=== PATIENT | male | born 1935 | race Caucasian/White ===

== ENCOUNTER 2017-05-28 15:32 | Emergency (ER) | payer MEDICARE, BC ==
[~2017-05-28] VITALS: Ht 170.2 cm; Wt 80.0 kg
[2017-05-28 15:33] VITALS: Ht 170.2 cm; Wt 80.0 kg
[2017-05-28 16:21] LABS: BASOPHILS % 0.5 % (0.0-2.0); EOSINOPHILS # 0.1 10^3/ul (0.0-0.5); HEMATOCRIT 33.3 % (42.0-52.0); HEMOGLOBIN 10.9 g/dl (14.0-18.0); LYMPHOCYTES # 0.7 10^3/ul (0.8-2.9); LYMPHOCYTES % 9.3 % (15.0-51.0); MEAN CORPUSCULAR HGB CONC 32.7 g/dl (32.0-37.0); MEAN CORPUSCULAR VOLUME 85.6 fl (82.0-101.0); MEAN PLATELET VOLUME 11.2 fl (7.4-10.4); MONOCYTE # 0.8 10^3/ul (0.3-0.9); MONOCYTES % 10.7 % (0.0-11.0); PLATELET COUNT 181 10^3/UL (140-415); RED BLOOD COUNT 3.89 10^6/ul (4.70-6.10); RED CELL DISTRIBUTION WIDTH 13.9 % (11.5-14.5); WHITE BLOOD COUNT 7.7 10^3/ul (4.8-10.8)
[2017-05-28 16:42] LABS: ALBUMIN/GLOBULIN RATIO 1.02; BILIRUBIN,INDIRECT 0.3 mg/dl (0-1.1); BILIRUBIN,TOTAL 0.3 mg/dl (0.2-1.3); CALCIUM 9.8 mg/dl (8.4-10.2); CREATININE 2.85 mg/dl (0.61-1.24); POTASSIUM 5.5 mmol/L (3.5-5.1); TOTAL PROTEIN 7.9 g/dl (6.1-8.1)
--- NOTE | 2017-05-28 16:44 | RADRPT ---
PROCEDURE: CT Brain without contrast. CLINICAL INDICATION: Weakness in the legs TECHNIQUE: A CT of the brain was performed on a [employer] 64-slice CT scanner utilizing axial imaging from the skull base through the vertex without IV contrast. Multiplanar reformatted images were made. Images were reviewed on a PACS workstation. The CTDIvol is 45.0 mGy and the DLP is 810 mGycm. DICOM images are available. One or more of the following dose reduction techniques were utilized: 1.) Automated exposure control 2.) Adjustment of the mA +/- kV according to patient's size 3.) Use of iterative reconstruction technique. COMPARISON: None FINDINGS: There is no intracranial hemorrhage, mass effect, or midline shift. No extra-axial fluid collection is seen. There is cerebral volume loss with prominence of the cerebral sulci and lateral ventricles . Periventricular and subcortical white matter hypodensities are nonspecific but likely reflect expedition[employer] fighting [employer] keeley microvascular ischemic change. The visualized paranasal sinuses and osseous structures are ayla sly unremarkable. IMPRESSION: 1. No evidence of acute intracranial pathology. If there is concern for acute intracranial ischemia , consider MRI for further evaluation. 2. Diffuse cerebral volume loss. 3. Periventricular and subcortical white matter hypodensities are nonspecific but likely reflect ch ronic microvascular ischemic change. Physician Jaguar Date Time Electronically viewed and signed by Physician Jaguar on 05/28/2017 16:44 ML/
[2017-05-28] MEDS ORDERED: SOD CHLORIDE 0.9% 1,000 ML IV STA (17:18)
[2017-05-28] MEDS ORDERED: NA POLYST SULFON 15 GM/60 ML BTL PO ONE (17:30)
[2017-05-28 18:51] VITALS: BP 139/70; PULSE 71; RESP 16; TEMP 98.1
[2017-05-28] MEDS ORDERED: SODI15OR8 PO (18:58)
--- NOTE | 2017-05-28 19:07 | ERD ---
ER Documentation Chief Complaint Chief Complaint BIB RA FOR RT KNEE PAIN S/P FALL. HPI This is a 81-year-old male who was brought in for generalized weakness. The patient says that he walks with a cane at baseline and has difficult time getting around at baseline. He said that he sat in a low seat chair and that he could not get out of the chair because his legs feel weak. He says his legs are always weak but had a difficult time getting out of the chair. Apparently this occurred out in the public and a bystander called EMS to try to help him. Patient denies any numbness weakness no focal neurological complaints of headache no chest pain shortness of breath no recent illness or dysuria ROS All systems reviewed and are negative except as per history of present illness. Medications Home Meds Active Scripts Sodium Polystyrene Sulfonate* (Kayexalate*) 15 Gm/60 Ml Susp, 30 GM PO each day for 2 Days, ML Prov:TC ZAMORA DO 05/28/17 Allergies Allergies: Coded Allergies: No Known Allergy (Unverified , 05/28/17) PMhx/Soc Hx Alcohol Use: No Hx Substance Use: No Hx Tobacco Use: No Smoking Status: Never smoker FmHx Family History: No coronary disease Physical Exam Vitals Vital Signs Date Time Temp Pulse Resp B/P Pulse Ox O2 Delivery O2 Flow Rate FiO2 05/28/17 18:51 98.1 71 16 139/70 95 Room Air 05/28/17 15:33 98.0 75 16 103/55 94 Physical Exam Const: Well-developed, well-nourished Head: Atraumatic, normocephalic Eyes: Normal Conjunctiva, PERRLA, EOMI, normal sclera, no nystagmus ENT: Normal External Ears, Nose and Mouth, moist mucus membranes. Neck: Full range of motion. No meningismus, no lymphadenopathy. Resp: Clear to auscultation bilaterally, no wheezing, rhonchi, rales Cardio: Regular rate and rhythm, no murmurs, S1 S2 present Abd: Soft, non tender x 4, non distended. Normal bowel sounds, no guarding or rebound, no pulsitile abdominal masses or bruits Skin: No petechiae or rashes, no ecchymosis , no maculopapular rash Back: No midline or flank tenderness Ext: No cyanosis, or edema, FROM x 4, normal inspection, neurovascularly intact x 4, patient can ambulate with a cane at his baseline slow gait Neur: Awake and alert, STR 5/5 x 4, sensation intact x 4, no focal findings, cerebellum intact Psych: Normal Mood and Affect Result Diagram: 05/28/17 1605 05/28/17 1605 Results 24 hrs Laboratory Tests Test 05/28/17 16:05 White Blood Count 7.710^3/ul Red Blood Count 3.8910^6/ul Hemoglobin 10.9g/dl Hematocrit 33.3% Mean Corpuscular Volume 85.6fl Mean Corpuscular Hemoglobin 28.0pg Mean Corpuscular Hemoglobin Concent 32.7g/dl Red Cell Distribution Width 13.9% Platelet Count 87036^3/UL Mean Platelet Volume 11.2fl Neutrophils % 78.0% Lymphocytes % 9.3% Monocytes % 10.7% Eosinophils % 1.0% Basophils % 0.5% Nucleated Red Blood Cells % 0.0/100WBC Neutrophils # 6.010^3/ul Lymphocytes # 0.710^3/ul Monocytes # 0.810^3/ul Eosinophils # 0.110^3/ul Basophils # 0.010^3/ul Nucleated Red Blood Cells # 0.010^3/ul Sodium Level 139mmol/L Potassium Level 5.5mmol/L Chloride Level 101mmol/L Carbon Dioxide Level 25mmol/L Anion Gap 19 Blood Urea Nitrogen 58mg/dl Creatinine 2.85mg/dl Glucose Level 126mg/dl Calcium Level 9.8mg/dl Total Bilirubin 0.3mg/dl Direct Bilirubin 0.00mg/dl Indirect Bilirubin 0.3mg/dl Aspartate Amino Transf (AST/SGOT) 26IU/L Alanine Aminotransferase (ALT/SGPT) 44IU/L Alkaline Phosphatase 81IU/L Total Protein 7.9g/dl Albumin 4.0g/dl Globulin 3.90g/dl Albumin/Globulin Ratio 1.02 Current Medications Medications (Trade) Dose Ordered Sig/Christina Route PRN Reason Start Time Stop Time Status Last Admin Dose Admin Sodium Chloride (NS) 1,000 ml @ 1,000 mls/hr Q1H STAT IV 05/28/17 17:18 05/28/17 18:17 DC 05/28/17 17:44 Sodium Polystyrene Sulfonate (Kayexalate) 30 gm ONCE ONCE PO 05/28/17 17:30 05/28/17 17:31 DC 05/28/17 17:44 Procedures/MDM PROCEDURE: CT Brain without contrast. CLINICAL INDICATION: Weakness in the legs TECHNIQUE: A CT of the brain was performed on a [employer] 64-slice CT scanner utilizing axial imaging from the skull base through the vertex without IV contrast. Multiplanar reformatted images were made. Images were reviewed on a PACS workstation. The CTDIvol is 45.0 mGy and the DLP is 810 mGycm. DICOM images are available. One or more of the following dose reduction techniques were utilized: 1.) Automated exposure control 2.) Adjustment of the mA +/- kV according to patient's size 3.) Use of iterative reconstruction technique. COMPARISON: None FINDINGS: There is no intracranial hemorrhage, mass effect, or midline shift. No extra- axial fluid collection is seen. There is cerebral volume loss with prominence of the cerebral sulci and lateral ventricles. Periventricular and subcortical white matter hypodensities are nonspecific but likely reflect chronic microvascular ischemic change. The visualized paranasal sinuses and osseous structures are grossly unremarkable. IMPRESSION: 1. No evidence of acute intracranial pathology. If there is concern for acute intracranial ischemia, consider MRI for further evaluation. 2. Diffuse cerebral volume loss. 3. Periventricular and subcortical white matter hypodensities are nonspecific but likely reflect chronic microvascular ischemic change. Physician Jaguar Date Time Electronically viewed and signed by Physician Jaguar on 05/28/2017 16 :44 ML/ CC: TC ZAMORA DO The patient's creatinine is 2.83. The family is here now state that his creatinine a few weeks ago was 2.45. He has seen a plate inspector and he has a follow-up appointment with his doctor this Monday. The patient's potassium is elevated at 5.5 gave him some Kayexalate will discharge him home with 2 more days of Kayexalate. Because his creatinine is at baseline nearly I will discharge home after 1 L of fluids. Departure Diagnosis: Primary Impression: Volume depletion Additional Impression: General weakness Condition: Stable Patient Instructions: Generalized Weakness TC ZAMORA DO May 28, 2017 19:07
[2017-05-28] MEDS ORDERED: WALK1EAC23 MC (19:08)
== END 2017-05-28 19:15 | disposition home or self-care (01) ==
LOC: E/R 15:32
DX: E86.9 Volume depletion, unspecified (principal); R51 Headache
CPT/HCPCS: 70450; 80053; 85025; 99284; J7030

== ENCOUNTER 2018-09-19 13:50 | Inpatient (IN) | payer MEDICARE, BC ==
[~2018-09-19] VITALS: Ht 177.8 cm; Wt 80.7 kg
[~2018-09-19 13:50] MED LIST: SODI15OR8 PO; WALK1EAC23 MC
[2018-09-19 14:00] VITALS: BP 113/72; PULSE 82; RESP 18
[2018-09-19 14:30] VITALS: Ht 177.8 cm; Wt 80.7 kg
[2018-09-19] MEDS ORDERED: PROCHLORPERAZINE 5 MG TAB GTB PRN (14:30)
[2018-09-19] MEDS ORDERED: ACETAMINOPHEN 325 MG TAB PO PRN (14:30)
[2018-09-19] MEDS ORDERED: MAGNESIUM HYDROXIDE 30ML CUP PO PRN (14:30)
[2018-09-19] MEDS ORDERED: PENDING SANTYL ORDER FOR WOUND CARE XX PRN (14:30)
[2018-09-19] MEDS ORDERED: PHENOL 1.4% SOLN 180 ML BTL MT PRN (14:30)
[2018-09-19] MEDS ORDERED: BISACODYL 10 MG SUPP PR PRN (14:30)
[2018-09-19] MEDS ORDERED: DIPHENHYDRAMINE 2.5 MG/ML 5ML CUP GTB PRN (14:30)
[2018-09-19] MEDS ORDERED: NALBUPHINE HCL (10 MG/1 ML) INJ IV PRN (14:30)
[2018-09-19] MEDS ORDERED: LACTULOSE 30ML CUP PO PRN (14:30)
[2018-09-19] MEDS ORDERED: ONDANSETRON 4 MG INJ IV PRN (14:30)
[2018-09-19] MEDS ORDERED: DIPHENHYDRAMINE 50 MG INJ IV PRN (14:30)
[2018-09-19] MEDS ORDERED: ACETAMINOPHEN 650MG/20.3ML CUP GTB PRN (14:30)
[2018-09-19] MEDS ORDERED: GLUCOSE GEL 15 GRAM TUBE PO PRN ×2 (16:30)
[2018-09-19] MEDS ORDERED: DEXTROSE 50% 50 ML SYRINGE IV PRN ×2 (16:30)
[2018-09-19] MEDS ORDERED: GLUCAGON 1 MG INJ IM PRN (16:30)
[2018-09-19] MEDS ORDERED: GLUCOSE GEL 15 GRAM TUBE BUCCAL PRN (16:30)
[2018-09-19] MEDS: PROPRANOLOL 20 MG TAB GTB SCH ×2 (17:00→20:54)
[2018-09-19] MEDS: TOBRAMYCIN/DEXAMETH 2.5 ML OPH BOTH EYES SCH ×2 (17:48→20:56)
[2018-09-19] MEDS: INSULIN ASPART [NOVOLOG] 3 ML PEN SC SCH ×2 (17:49→20:54)
[2018-09-19] MEDS: CHLORHEXIDINE GLUCONATE 15 ML UD CUP MT SCH ×2 (17:54→20:57)
[2018-09-19] MEDS: LEVALBUTEROL (NEB) 0.63 MG/3 ML AMP HHN SCH (19:56)
[2018-09-19 20:51] VITALS: BP 101/59; PULSE 62; RESP 18
[2018-09-19] MEDS: MICONAZOLE 2% 30 GM CR TOP SCH (20:57)
[2018-09-19] MEDS: GLYCOPYRROLATE 1 MG TAB GTB SCH (20:57)
[2018-09-19] MEDS: SENNA TAB PO SCH (20:58)
[2018-09-19] MEDS: DOCUSATE SODIUM 10 MG/ML (10ML CUP) GTB SCH (20:58)
[2018-09-19] MEDS: INSULIN GLARGINE [LANTus] (100 UNITS/ML) SYG SC SCH (20:59)
[2018-09-19] MEDS: HEPARIN 5,000 UNIT/1 ML VIAL SC SCH (21:00)
[2018-09-19] MEDS ORDERED: DOCUSATE SODIUM 100 MG CAP PO SCH (21:00)
[2018-09-20] MEDS ORDERED: BISACODYL 10 MG SUPP PR PRN (01:00)
[2018-09-20] MEDS ORDERED: MAGNESIUM HYDROXIDE 30ML CUP PO PRN (01:00)
[2018-09-20] MEDS ORDERED: LACTULOSE 30ML CUP PO PRN (01:00)
[2018-09-20] MEDS: LEVALBUTEROL (NEB) 0.63 MG/3 ML AMP HHN SCH ×4 (01:33→20:03)
[2018-09-20 02:00] VITALS: BP 99/58; PULSE 87; RESP 16
[2018-09-20] MEDS: ACCU-CHEK XX SCH (02:00)
[2018-09-20] MEDS ORDERED: LANSOPRAZOLE 30 MG CAP GTB SCH (06:00)
[2018-09-20] MEDS ORDERED: LEVOTHYROXINE 137 MCG TAB GTB SCH (06:00)
[2018-09-20] MEDS: TAMSULOSIN (SR) 0.4 MG CAP PO SCH (08:13)
[2018-09-20] MEDS: INSULIN ASPART [NOVOLOG] 3 ML PEN SC SCH ×4 (08:16→21:00)
[2018-09-20] MEDS: MICONAZOLE 2% 30 GM CR TOP SCH ×2 (08:17→21:55)
[2018-09-20] MEDS: HEPARIN 5,000 UNIT/1 ML VIAL SC SCH ×2 (08:17→21:44)
[2018-09-20] MEDS: TOBRAMYCIN/DEXAMETH 2.5 ML OPH BOTH EYES SCH ×4 (08:27→21:36)
[2018-09-20] MEDS: DOCUSATE SODIUM 10 MG/ML (10ML CUP) GTB SCH (08:28)
[2018-09-20] MEDS: PROPRANOLOL 20 MG TAB GTB SCH ×2 (08:28→13:00)
[2018-09-20] MEDS: FEBUXOSTAT 40 MG TABLET PO SCH (08:29)
[2018-09-20] MEDS: GLYCOPYRROLATE 1 MG TAB GTB SCH (08:29)
[2018-09-20] MEDS: CHLORHEXIDINE GLUCONATE 15 ML UD CUP MT SCH ×2 (08:29→21:37)
[2018-09-20 08:32] VITALS: BP 119/69; PULSE 66; RESP 18
[2018-09-20] MEDS ORDERED: SPIRONOLACTONE 25 MG TAB GTB SCH (09:00)
[2018-09-20] MEDS ORDERED: CHOLECALCIFEROL 1,000 UNIT TAB GTB SCH (09:00)
[2018-09-20] MEDS ORDERED: FOLIC ACID 1 MG TAB GTB SCH (09:00)
[2018-09-20] MEDS ORDERED: MULTIVIT/CA CARB/B CMPLX/FA TAB GTB SCH (09:00)
[2018-09-20] MEDS ORDERED: predniSONE 5 MG TAB GTB SCH (09:00)
--- NOTE | 2018-09-20 11:07 | HP ---
DATE OF ADMISSION: 09/19/2018 CHIEF COMPLAINT: Critical care myopathy and respiratory failure. HISTORY OF PRESENT ILLNESS: This is an 83-year-old male with a past medical history of atrial fibril lation, history of hypertension, diabetes, chronic kidney disease with baseline creatinine around 1.8 mg/dL, who was initially admitted to [facility] for severe weakness. The patien t during that hospital course noted to have empyema, was started on antibiotic therapy, and bronchodi lators. The patient, however, had respiratory failure, required to be intubated. The patient underw ent thoracotomy. It was complicated with bleeding. The patient had a prolonged course requiring tra ch and PEG placement. He was eventually transferred to [facility]. The patient was e ventually weaned off the ventilator and had his trach capped. The patient was also started toleratin g oral food. The patient had a significant decline in his premorbid state and developed critical car e myopathy. As a result he was transferred to [facility] for continued care. Upon my evaluation of the patient at this time, he is currently stable. He denies any fevers, chills , nausea, or vomiting. PAST MEDICAL HISTORY: History of diabetes, hypertension, atrial fibrillation, chronic kidney disease . FAMILY HISTORY: No family history of kidney disease. SOCIAL HISTORY: He does not drink, smoke or do drugs. ALLERGIES: NONE. REVIEW OF SYSTEMS: A 14-point review of systems was conducted. Pertinent positives stated in the HP I. Otherwise negative. PAST SURGICAL HISTORY: Status post trach, status post PEG. PHYSICAL EXAMINATION: VITAL SIGNS: Blood pressure is 119/69, respirations 18, pulse 66, temperature 98.4. HEENT: Head is normocephalic. NECK: Supple. HEART: Regular rate. LUNGS: Show diminished breath sounds at the base. ABDOMEN: Soft, nontender to palpation without rebound or guarding. EXTREMITIES: Negative for clubbing, cyanosis, no edema. DERMATOLOGIC: No rashes. MUSCULOSKELETAL: No joint effusion. NEUROLOGIC: No focal deficits. LABORATORY DATA: Reviewed. ASSESSMENT AND PLAN: 1. Chronic respiratory failure, status post trach. Currently, capped. We will continue to monitor. Follow up with pulmonary. The patient may be able to be decannulated during the hospital course. 2. Dysphagia, status post percutaneous endoscopic gastrostomy. The patient is tolerating p.o. We w ill continue to work with speech therapy, advanced diet and may consider removal of PEG. 3. Chronic kidney disease stage IIIb/. The patient's renal function appears to be well. We will continue to monitor renal function closely. Continue current treatment plan, supportive care, renall y dose all medicines. 5. Mild hyperkalemia secondary to chronic kidney disease in conjunction with possible Aldactone. Mo nitor potassium levels closely. We will hold Aldactone at this time. Continue low-potassium diet. 6. Anemia. Continue to monitor hemoglobin and hematocrit levels. 7. Mineral bone disorder, monitor calcium and phosphorus levels. 8. History of diabetes. Continue Accu-Cheks, insulin sliding scale. 9. History of atrial fibrillation. The patient is currently in sinus rhythm. Continue medical ruby gement. 10. Hypothyroidism. Continue Synthroid. 11. Benign prostatic hypertrophy. Continue Uloric. 12. Constipation. Continue current bowel regimen. 13. Hypertension. Continue current blood pressure regimen. We will hold clonidine. Dictated By: FARAZ GONGORA DO NR/NTS Conf#: [id number] DID#: [id number] CC: CHARLENE LYMAN DO; JESUS CHAMBERS MD;*EndCC*
[2018-09-20 14:00] VITALS: BP 106/68; PULSE 69; RESP 16
--- NOTE | 2018-09-20 14:44 | CONS ---
DATE OF ADMISSION: 09/19/2018 DATE OF CONSULTATION: 09/20/2018 TYPE OF CONSULTATION: Rehabilitation post-admission physician evaluation. REHABILITATION IMPAIRMENT CATEGORY: Critical illness myopathy. ACTIVE COMORBIDITIES: 1. Status post acute respiratory failure, right empyema and thoracotomy with decortication, COPD and tracheostomy currently capped. 2. Chronic atrial fibrillation. 3. Chronic kidney disease. 4. Anemia. 5. BPH. 6. Hypertension. 7. Diabetes mellitus. 8. Impairments in hearing. 9. Impairments in self-care, mobility and mild cognition. HISTORY OF PRESENT ILLNESS: The patient is an 83-year-old gentleman with a history of multiple medic al comorbidities who was initially treated at [facility] for empyema and respiratory f ailure requiring intubation. The patient did receive thoracotomy with postoperative bleeding requiri ng second surgery. The patient's hospital course is also notable for tracheostomy and PEG tube place ment. The patient was eventually transferred to [place] on 08/22/2018 for continued pulmonary care. The patient was eventually weaned from the ventilator and is now tolerating capping for prolonged per iods. The patient is noted to have significant proximal weakness after prolonged hospitalization and felt likely to have critical illness myopathy. The patient has been cleared to transfer to the reha bilitation unit for comprehensive interdisciplinary rehab care. FUNCTIONAL HISTORY: Prior to recent events, he was independent in self-care tasks and mobility. Cur rently, he requires maximal assist for self-care and mobility tasks. I have reviewed the preadmission screen and the patient's current functional status is consistent wit h the preadmission screen. FAMILY AND SOCIAL HISTORY: The patient lives at home with family in a single-[place] home with a few stair steps to entryway and he hopes to return home upon discharge. PAST MEDICAL HISTORY: 1. COPD. 2. Atrial fibrillation. 3. Hypertension. 4. Diabetes mellitus. 5. Chronic kidney disease. 6. BPH. CURRENT MEDICATIONS: 1. Vitamin D. 2. Catapres p.r.n. 3. Insulin sliding scale. 4. Prevacid 30 mg p.o. daily. 5. Levalbuterol inhaler. 6. Synthroid 137 mcg daily. 7. Folic acid 1 mg p.o. daily. 8. Uloric 40 mg p.o. daily. 9. Daphnie-Nikole. 10. Prednisone 5 mg daily. 11. Inderal 20 mg p.o. t.i.d. 12. Aldactone 25 mg p.o. daily. 13. Flomax 0.4 mg daily. 14. Lantus 20 units subcutaneous at bedtime. 15. Heparin subcutaneously. ALLERGIES: THE PATIENT HAS NO KNOWN DRUG ALLERGIES. PHYSICAL EXAMINATION: VITAL SIGNS: The patient is currently afebrile with stable vital signs. HEENT: Extraocular motions are intact. Oropharynx is clear. NECK: With a tracheostomy with cap in place. LUNGS: Clear anteriorly. CARDIAC: S1, S2. ABDOMEN: Soft, nontender, positive bowel sounds. NEUROLOGIC: The patient is awake and alert. He is oriented to person and hospital. He will follow simple 1-step commands. He is significantly hard of hearing. He demonstrates antigravity strength t o bilateral upper extremity and lower extremity. PLAN: The patient has been admitted for comprehensive interdisciplinary acute rehab and is anticipat ed to tolerate 3 hours of daily therapy in divided doses for at least 5/7 days a week. The treatment plan will include: 1. Physical therapy to focus on bed mobility, transfers and household ambulation with the goal of jean-baptiste ving patient reach a standby assist level. 2. Occupational therapy to focus on hygiene, grooming, dressing, bathing and toileting activities wi th the goal of having patient reach a standby assist level. 3. Speech therapy for full cognitive assessment and retraining in addition to dysphagia management w ith the goals of having the patient return to baseline cognition and meet nutritional needs by mouth. 4. Rehabilitation nursing for carryover of therapeutic interventions, the goal of continent of bowel and bladder and the goal of patient and family education with regard to the aforementioned issues. 5. Neuropsychological evaluation for adjustment to disease process in addition to full cognitive ass essment and oversight of cognitive retraining. ESTIMATED LENGTH OF STAY: 14 days. DISPOSITION GOAL: Home with family. REHABILITATION BARRIER: Dysphagia. INTERVENTION FOR BARRIER: Speech therapy. I acknowledge that I performed a full physical examination on this patient within 24 hours of admissi on to the rehabilitation unit. I believe the patient is a good candidate for comprehensive interdisc iplinary rehab care and is anticipated to make reasonable goals in a reasonable period of time as out lined above. Dictated By: JESUS GRIJALVA/PAPA Conf#: [id number] DID#: [id number] CC: CHARLENE LYMAN DO;*End*
[2018-09-20] MEDS ORDERED: DIPHENHYDRAMINE 2.5 MG/ML 5ML CUP PO PRN (18:30)
[2018-09-20] MEDS ORDERED: ACETAMINOPHEN 650MG/20.3ML CUP PO PRN (18:30)
[2018-09-20] MEDS ORDERED: PROCHLORPERAZINE 5 MG TAB PO PRN (18:30)
[2018-09-20 19:19] VITALS: BP 111/63; PULSE 55; RESP 18
[2018-09-20] MEDS: PROPRANOLOL 20 MG TAB PO SCH (21:00)
[2018-09-20] MEDS: GLYCOPYRROLATE 1 MG TAB PO SCH (21:34)
[2018-09-20] MEDS: SENNA TAB PO SCH (21:35)
[2018-09-20] MEDS: DOCUSATE SODIUM 10 MG/ML (10ML CUP) PO SCH (21:36)
[2018-09-20] MEDS: INSULIN GLARGINE [LANTus] (100 UNITS/ML) SYG SC SCH (21:43)
[2018-09-21] MEDS: LEVALBUTEROL (NEB) 0.63 MG/3 ML AMP HHN SCH ×4 (01:15→20:00)
[2018-09-21] MEDS: ACCU-CHEK XX SCH (02:00)
[2018-09-21 02:51] VITALS: BP 135/63; PULSE 70; RESP 18
[2018-09-21] MEDS: LEVOTHYROXINE 137 MCG TAB PO SCH (06:34)
[2018-09-21] MEDS: LANSOPRAZOLE 30 MG CAP PO SCH (06:34)
[2018-09-21] MEDS: INSULIN ASPART [NOVOLOG] 3 ML PEN SC SCH ×4 (07:35→20:41)
[2018-09-21 08:00] VITALS: BP 114/64; PULSE 71; RESP 20
[2018-09-21] MEDS: CHLORHEXIDINE GLUCONATE 15 ML UD CUP MT SCH ×2 (08:32→20:37)
[2018-09-21] MEDS: DOCUSATE SODIUM 10 MG/ML (10ML CUP) PO SCH ×2 (08:32→20:37)
[2018-09-21] MEDS: TOBRAMYCIN/DEXAMETH 2.5 ML OPH BOTH EYES SCH ×4 (08:32→20:37)
[2018-09-21] MEDS: FEBUXOSTAT 40 MG TABLET PO SCH (08:33)
[2018-09-21] MEDS: FOLIC ACID 1 MG TAB PO SCH (08:33)
[2018-09-21] MEDS: GLYCOPYRROLATE 1 MG TAB PO SCH ×2 (08:33→20:37)
[2018-09-21] MEDS: MULTIVIT/CA CARB/B CMPLX/FA TAB PO SCH (08:33)
[2018-09-21] MEDS: HEPARIN 5,000 UNIT/1 ML VIAL SC SCH ×2 (08:33→20:39)
[2018-09-21] MEDS: CHOLECALCIFEROL 1,000 UNIT TAB PO SCH (08:34)
[2018-09-21] MEDS: predniSONE 5 MG TAB PO SCH (08:34)
[2018-09-21] MEDS: PROPRANOLOL 20 MG TAB PO SCH ×3 (08:34→20:38)
[2018-09-21] MEDS: TAMSULOSIN (SR) 0.4 MG CAP PO SCH (08:34)
[2018-09-21] MEDS: MICONAZOLE 2% 30 GM CR TOP SCH ×2 (08:38→23:27)
[2018-09-21] MEDS ORDERED: FLUCONAZOLE 100 MG TAB PO SCH (09:00)
--- NOTE | 2018-09-21 09:37 | PN ---
DATE: 09/21/2018 SUBJECTIVE: The patient is stable, tolerating p.o. well. No other events noted. No hemoptysis, hem atemesis, hematochezia. OBJECTIVE: VITAL SIGNS: Blood pressure is 135/63, respiration 18, pulse 70, temperature 97.8. HEENT: Head is normocephalic. NECK: Supple. HEART: Regular rate. LUNGS: Show diminished breath sounds at the base. ABDOMEN: Soft, nontender to palpation without rebound or guarding. EXTREMITIES: Negative for clubbing, cyanosis, no edema. DERMATOLOGIC: No rashes. MUSCULOSKELETAL: No joint effusions. NEUROLOGIC: No change in exam. MEDICATIONS: Have been reviewed. LABORATORY DATA: Has been reviewed. Urine cultures were positive for yeast. ASSESSMENT AND PLAN: 1. Chronic respiratory failure, status post trach. Patient's trach is currently capped. Will consu lt pulmonary for possibility of decannulation. 2. Dysphagia, status post percutaneous endoscopic gastrostomy. Patient is tolerating p.o., we will place a GI consult for possible PEG removal. 3. Chronic kidney disease, stage IIIB/IV. Patient's renal function is stable. Continue current talia atment plan, supportive care, renally dose all meds. 4. Mild hyperkalemia secondary to chronic kidney, Aldactone, resolved. Continue to monitor. 5. Anemia. Monitor hemoglobin and hematocrit levels. 6. Mineral bone disorder. Monitor calcium and phosphorus levels. 7. History of diabetes. Continue Accu-Cheks and insulin sliding scale. 8. History of atrial fibrillation, currently in sinus rhythm. Continue to monitor. 9. Hypothyroidism. Continue Synthroid. 10. Benign prostatic hypertrophy. Continue Uloric. 11. Constipation. Continue current bowel regimen. 12. Hypertension. Continue current blood pressure regimen. 13. Possible urinary tract infection. The patient's urine culture is positive for yeast. Will star t the patient on Diflucan and monitor. Dictated By: FARAZ GONGORA DO NR/NTS Conf#: [id number] DID#: [id number] CC: JESUS CHAMBERS MD;*EndCC*
--- NOTE | 2018-09-21 11:42 | CONS ---
Assessment/Plan Assessment/Plan Hospital Course (Demo Recall) 1. Atrial fibrillation: Heart rate controlled. Unable to fully anticoagulated due to concern about the anemia and OB positive stool 2. Congestive heart failure/cardiomyopathy: Chronic secondary systolic heart failure and stable now 3. Status post hypoxemic respiratory failure and tracheostomy: Currently trach is capped 4. Anemia and OB positive stool 5. Debility 6. This was empyema/pneumonia 7. dysphasia status post PEG placement 8. Renal insufficiency Recommendation: Continue with the propranolol. Respiratory care as needed. Nutritional support to be continued Currently patient off of anticoagulation due to concern about the severe anemia and GI bleeding cont With physical therapy and rehab Thank you for his referral. We will continue to follow along with MARCO A NAJERA MD [facility] Consultation Date/Type/Reason Admit Date/Time Sep 19, 2018 at 13:50 Date of Consultation: Sep 21, 2018 Type of Consult Cardiology Reason for Consultation afib. CHF Requesting Provider: FARAZ GONGORA DO Date/Time of Note DATE: 09/21/18 TIME: 11:33 Hx of Present Illness Interventional cardiology consultation note Chief complaint: Debility Reason for consult: Atrial fibrillation, cardiomyopathy, congestive heart failure History of present illness: Thank you for this referral. Obtained from review of the old chart. From discussion with the staff and physician. From discussion with the family. Patient also very well-known to me from previous admissions to [facility] this is an 83-year-old male with a past medical history of atrial fibrillation, history of hypertension, diabetes, chronic kidney disease who was initially admitted to [facility] for severe weakness. The patient during that hospital course noted to have empyema, was started on antibiotic therapy, and bronchodilators. The patient, however, had respiratory failure, required to be intubated. The patient underwent thoracotomy. It was complicated with bleeding. The patient had a prolonged course requiring trach and PEG placement. He was eventually transferred to [facility]. At [place] he was initially in atrial fibrillation with rapid ventricular response. He has been placed on propanolol and has improved heart rate has significantly stabilized now. He was also fluid overload congestive heart failure with echo showing ejection pressure of 35-40%. The patient was eventually weaned off the ventilator and had his trach capped. The patient was also started tolerating oral food. The patient had a significant decline in his premorbid state and developed critical care myopathy. As a result he was transferred to [facility] for continued care. PAST MEDICAL HISTORY: History of diabetes, hypertension, atrial fibrillation, chronic kidney disease. Anemia and stool OB positive FAMILY HISTORY: No family history of early coronary artery disease SOCIAL HISTORY: No active alcohol drug or tobacco abuse ALLERGIES: NONE. Medications were reviewed as per medical reconciliation sheet Review of system: Patient denies all others except for above-mentioned Past Medical History Home Meds Active Scripts Front Wheel Walker* (Front Wheel Walker*) 1 Each Dme, 1 EACH [facility] DIRECTED, #1 DME 0 Refills Prov:TC ZAMORA DO 05/28/17 Sodium Polystyrene Sulfonate* (Kayexalate*) 15 Gm/60 Ml Susp, 30 GM PO each day for 2 Days, ML Prov:TC ZAMORA DO 05/28/17 Medications Current Medications Senna (Senokot) 1 tab HS PO Last administered on 09/20/18at 21:35; Admin Dose 1 TAB; Start 09/19/18 at 21:00 Magnesium Hydroxide (Milk Of Mag) 30 ml BID PRN PO CONSTIPATION; Start 09/19/18 at 14:30 Lactulose (Enulose) 20 gm DAILY PRN PO CONSTIPATION; Start 09/19/18 at 14:30 Miscellaneous Information (Pending [facility] Order For Wound Care) This patient jean-baptiste... PRN PRN XX WOUND CARE; Start 09/19/18 at 14:30 Chlorhexidine Gluconate (Peridex) 15 ml BID MT Last administered on 09/21/18at 08:32; Admin Dose 15 ML; Start 09/19/18 at 17:00 Diphenhydramine HCl (Benadryl) 12.5 mg Q4H PRN IV ITCHING; Start 09/19/18 at 14:30 Febuxostat (Uloric) 40 mg DAILY PO Last administered on 09/21/18at 08:33; Admin Dose 40 MG; Start 09/20/18 at 09:00 Heparin Sodium (Porcine) (Heparin (5000 Units/1ml)) 5,000 unit BID SC Last administered on 09/21/18at 08:33; Admin Dose 5,000 UNIT; Start 09/19/18 at 21:00 Insulin Glargine (Lantus) 20 units DAILY@2000 SC Last administered on 09/20/18 21:43; Admin Dose 20 UNITS; Start 09/19/18 at 20:00 Levalbuterol (Xopenex Neb) 0.63 mg Q6H RESP THERAPY HHN Last administered on 09/21/18 08:39; Admin Dose 0.63 MG; Start 09/19/18 at 20:00 Miconazole Nitrate (Miconazole 2% Cr) 1 applic BID TOP Last administered on 09/21/18 08:38; Admin Dose 1 APPLIC; Start 09/19/18 at 21:00 Nalbuphine HCl (Nubain) 2 mg Q6 PRN IV PRURITUS; Start 09/19/18 at 14:30 Phenol (Chloraseptic Throat [place]) 2 spray Q3 PRN MT SORE THROAT; Start 09/19/18 at 14:30 Spironolactone (Aldactone) 25 mg DAILY GTB Last administered on 09/20/18 08:29; Admin Dose 25 MG; Start 09/20/18 at 09:00; Status Hold Tamsulosin HCl (Flomax) 0.4 mg PC BREAKFAST PO Last administered on 09/21/18 08:34; Admin Dose 0.4 MG; Start 09/20/18 at 08:35 Tobramycin/ Dexamethasone (Tobradex Oph Drop) 1 drop QID BOTH EYES Last administered on 09/21/18 08:32; Admin Dose 1 DROP; Start 09/19/18 at 17:00 Diagnostic Test (Pha) (Accu-Chek) 1 ea 02 XX ; Start 09/20/18 at 02:00 Insulin Aspart (Novolog Insulin Pen) NOVOLOG *MILD* ALGORITHM WITH MEALS BEDTIME SC Last administered on 09/21/18at 10:54; Admin Dose 2 UNIT; Start 09/19/18 at 17:35 Miscellaneous Information 1 ea NOTE XX ; Start 09/19/18 at 16:30 Glucose (Glutose) 15 gm Q15M PRN PO DECREASED GLUCOSE; Start 09/19/18 at 16:30 Glucose (Glutose) 22.5 gm Q15M PRN PO DECREASED GLUCOSE; Start 09/19/18 at 16:30 Dextrose (D50w Syringe) 25 ml Q15M PRN IV DECREASED GLUCOSE; Start 09/19/18 at 16:30 Dextrose (D50w Syringe) 50 ml Q15M PRN IV DECREASED GLUCOSE; Start 09/19/18 at 16:30 Glucagon (Glucagen) 1 mg Q15M PRN IM DECREASED GLUCOSE; Start 09/19/18 at 16:30 Glucose (Glutose) 15 gm Q15M PRN BUCCAL DECREASED GLUCOSE; Start 09/19/18 at 16:30 Bisacodyl (Dulcolax Supp) 10 mg DAILY PRN [place] CONSTIPATION; Start 09/20/18 at 01:00 Acetaminophen (Tylenol Liquid) 650 mg Q4H PRN PO MILD PAIN(1-3)OR ELEVATED TEMP; Start 09/20/18 at 18:30 Cholecalciferol (Vitamin D) 1,000 unit DAILY PO Last administered on 09/21/18 08:34; Admin Dose 1,000 UNIT; Start 09/21/18 at 09:00 Diphenhydramine HCl (Benadryl Liquid Cup) 25 mg Q4H PRN PO ITCHING; Start 09/20/18 at 18:30 Docusate Sodium (Colace Liquid Cup) 100 mg BID PO Last administered on 09/21/18 08:32; Admin Dose 100 MG; Start 09/20/18 at 21:00 Folic Acid (Folic Acid) 1 mg DAILY PO Last administered on 09/21/18 08:33; Admin Dose 1 MG; Start 09/21/18 at 09:00 Glycopyrrolate (Robinul) 1 mg BID PO Last administered on 09/21/18 08:33; Admin Dose 1 MG; Start 09/20/18 at 21:00 Lansoprazole (Prevacid) 30 mg DAILY@06 PO Last administered on 09/21/18 06:34; Admin Dose 30 MG; Start 09/21/18 at 06:00 Levothyroxine Sodium (Synthroid) 137 mcg DAILY@06 PO Last administered on 09/21/18 06:34; Admin Dose 137 MCG; Start 09/21/18 at 06:00 Multivit/Ca Carb/ B Cmplx/FA/Prenat (Daphnie-Nikole) 1 tab DAILY PO Last administered on 09/21/18 08:33; Admin Dose 1 TAB; Start 09/21/18 at 09:00 Prochlorperazine (Compazine) 5 mg Q6H PRN PO NAUSEA AND/OR VOMITING; Start 09/20/18 at 18:30 Propranolol HCl (Inderal) 20 mg TID PO ; Start 09/20/18 at 21:00 Prednisone (Prednisone) 5 mg DAILY PO Last administered on 09/21/18at 08:34; Admin Dose 5 MG; Start 09/21/18 at 09:00; Stop 09/22/18 at 09:01 Fluconazole (Diflucan) 100 mg DAILY PO ; Start 09/21/18 at 13:00 Allergies: Coded Allergies: No Known Allergy (Unverified , 05/28/17) Social History Smoking Status: Former smoker Exam/Review of Systems Vital Signs Vitals Vital Signs Date Temp Pulse Resp B/P (MAP) Pulse Ox O2 O2 Flow FiO2 Time Delivery Rate 09/21/18 78 16 95 21 08:39 09/21/18 97.8 135/63 Room Air 02:51 (87) Intake and Output 09/20/18 09/20/18 09/21/18 1515:00 23:00 07:00 IntakeIntake Total 200 ml 800 ml OutputOutput Total 300 ml 200 ml 150 ml BalanceBalance -100 ml 600 ml -150 ml Exam Exam General: A gentleman in no acute distress HEENT: NC/AT. pupils are equal. round. NECK: Status with previous trach which is. no stridor. CV: Irregularly regular. systolic murmur; no gallop or rubs. PULM: no wheezing or rhonchi. GI: SOFT, NT, ND, no rebound or guarding . Status post PEG placed Extremity: trace B/L LE edema. no clubbing. neuro: awake and alert, Psych: calm and pleasant rectal: deferred : normal [id number] 2018 which was personally reviewed shows: Normal left ventricular cavity size. Moderate concentric left ventricular hypertrophy. Severe global left ventricular systolic dysfunction. Ejection fraction is visually estimated at 35-40 %. Tissue Doppler/Mitral Doppler indices are indeterminate in this study due to the presence of . Mitral valve leaflets appear mildly thickened. Mild mitral annular calcification. Mild mitral valve regurgitation. No significant aortic stenosis or insufficiency. Aortic cusps appear mildly calcified. Normal appearance of the tricuspid valve. Estimated peak PA systolic pressure 30 mmHg. There is trace tricuspid regurgitation. There is mild enlargement of left atrium. Trivial pericardial effusion. Labs Result Diagram: 09/21/18 0706 09/21/18 0706 Results 24hrs Laboratory Tests Test 09/20/18 11:50 09/20/18 17:18 09/20/18 20:34 09/21/18 07:06 Bedside Glucose 196 148 178 White Blood Count 6.7 Red Blood Count 3.70 L Hemoglobin 10.7 L Hematocrit 33.9 L Mean Corpuscular 91.6 Volume Mean Corpuscular 28.9 L Hemoglobin Mean Corpuscular 31.6 L Hemoglobin Concent Red Cell 16.6 H Distribution Width Platelet Count 186 Mean Platelet Volume 11.1 H Immature 4.000 H Granulocytes % Neutrophils % 58.5 Lymphocytes % 21.8 Monocytes % 13.6 H Eosinophils % 1.5 Basophils % 0.6 Nucleated Red Blood 0.0 Cells % Immature 0.270 H Granulocytes # Neutrophils # 3.9 Lymphocytes # 1.5 Monocytes # 0.9 Eosinophils # 0.1 Basophils # 0.0 Nucleated Red Blood 0.0 Cells # Sodium Level 140 Potassium Level 5.1 Chloride Level 102 Carbon Dioxide Level 26 Anion Gap 12 Blood Urea Nitrogen 82 H Creatinine 1.51 H Est Glomerular Filtrat Rate mL/min Glucose Level 121 Calcium Level 9.8 Phosphorus Level 4.4 Magnesium Level 1.9 Test 09/21/18 08:02 09/21/18 10:49 Bedside Glucose 127 195 Medications Medications Current Medications Senna (Senokot) 1 tab HS PO Last administered on 09/20/18at 21:35; Admin Dose 1 TAB; Start 09/19/18 at 21:00 Magnesium Hydroxide (Milk Of Mag) 30 ml BID PRN PO CONSTIPATION; Start 09/19/18 at 14:30 Lactulose (Enulose) 20 gm DAILY PRN PO CONSTIPATION; Start 09/19/18 at 14:30 Miscellaneous Information ([facility]) This patient jean-baptiste... PRN PRN XX WOUND CARE; Start 09/19/18 at 14:30 Chlorhexidine Gluconate (Peridex) 15 ml BID MT Last administered on 09/21/18at 08:32; Admin Dose 15 ML; Start 09/19/18 at 17:00 Diphenhydramine HCl (Benadryl) 12.5 mg Q4H PRN IV ITCHING; Start 09/19/18 at 14:30 Febuxostat (Uloric) 40 mg DAILY PO Last administered on 3/29/19at 08:33; Admin Dose 40 MG; Start 09/20/18 at 09:00 Heparin Sodium (Porcine) (Heparin (5000 Units/1ml)) 5,000 unit BID SC Last administered on 09/21/18 08:33; Admin Dose 5,000 UNIT; Start 09/19/18 at 21:00 Insulin Glargine (Lantus) 20 units DAILY@2000 SC Last administered on 09/20/18 21:43; Admin Dose 20 UNITS; Start 09/19/18 at 20:00 Levalbuterol (Xopenex Neb) 0.63 mg Q6H RESP THERAPY HHN Last administered on 09/21/18 08:39; Admin Dose 0.63 MG; Start 09/19/18 at 20:00 Miconazole Nitrate (Miconazole 2% Cr) 1 applic BID TOP Last administered on 09/21/18 08:38; Admin Dose 1 APPLIC; Start 09/19/18 at 21:00 Nalbuphine HCl (Nubain) 2 mg Q6 PRN IV PRURITUS; Start 09/19/18 at 14:30 Phenol (Chloraseptic Throat [place]) 2 spray Q3 PRN [place] SORE THROAT; Start 09/19/18 at 14:30 Spironolactone (Aldactone) 25 mg DAILY GTB Last administered on 09/20/18 08:29; Admin Dose 25 MG; Start 09/20/18 at 09:00; Status Hold Tamsulosin HCl (Flomax) 0.4 mg PC BREAKFAST PO Last administered on 09/21/18 08:34; Admin Dose 0.4 MG; Start 09/20/18 at 08:35 Tobramycin/ Dexamethasone (Tobradex Oph Drop) 1 drop QID BOTH EYES Last administered on 09/21/18 08:32; Admin Dose 1 DROP; Start 09/19/18 at 17:00 Diagnostic Test (Pha) (Accu-Chek) 1 ea 02 XX ; Start 09/20/18 at 02:00 Insulin Aspart (Novolog Insulin Pen) NOVOLOG *MILD* ALGORITHM WITH MEALS BEDTIME SC Last administered on 09/21/18 10:54; Admin Dose 2 UNIT; Start 09/19/18 at 17:35 Miscellaneous Information 1 ea NOTE XX ; Start 09/19/18 at 16:30 Glucose (Glutose) 15 gm Q15M PRN PO DECREASED GLUCOSE; Start 09/19/18 at 16:30 Glucose (Glutose) 22.5 gm Q15M PRN PO DECREASED GLUCOSE; Start 09/19/18 at 16:30 Dextrose (D50w Syringe) 25 ml Q15M PRN IV DECREASED GLUCOSE; Start 09/19/18 at 16:30 Dextrose (D50w Syringe) 50 ml Q15M PRN IV DECREASED GLUCOSE; Start 09/19/18 at 16:30 Glucagon (Glucagen) 1 mg Q15M PRN IM DECREASED GLUCOSE; Start 09/19/18 at 16:30 Glucose (Glutose) 15 gm Q15M PRN BUCCAL DECREASED GLUCOSE; Start 09/19/18 at 16:30 Bisacodyl (Dulcolax Supp) 10 mg DAILY PRN [place] CONSTIPATION; Start 09/20/18 at 01:00 Acetaminophen (Tylenol Liquid) 650 mg Q4H PRN PO MILD PAIN(1-3)OR ELEVATED TEMP; Start 09/20/18 at 18:30 Cholecalciferol (Vitamin D) 1,000 unit DAILY PO Last administered on 09/21/18at 08:34; Admin Dose 1,000 UNIT; Start 09/21/18 at 09:00 Diphenhydramine HCl (Benadryl Liquid Cup) 25 mg Q4H PRN PO ITCHING; Start 09/20/18 at 18:30 Docusate Sodium (Colace Liquid Cup) 100 mg BID PO Last administered on 09/21/18at 08:32; Admin Dose 100 MG; Start 09/20/18 at 21:00 Folic Acid (Folic Acid) 1 mg DAILY PO Last administered on 09/21/18at 08:33; Admin Dose 1 MG; Start 09/21/18 at 09:00 Glycopyrrolate (Robinul) 1 mg BID PO Last administered on 09/21/18at 08:33; Admin Dose 1 MG; Start 09/20/18 at 21:00 Lansoprazole (Prevacid) 30 mg DAILY@06 PO Last administered on 09/21/18at 06:34; Admin Dose 30 MG; Start 09/21/18 at 06:00 Levothyroxine Sodium (Synthroid) 137 mcg DAILY@06 PO Last administered on 09/21/18at 06:34; Admin Dose 137 MCG; Start 09/21/18 at 06:00 Multivit/Ca Carb/ B Cmplx/FA/Prenat (Daphnie-Nikole) 1 tab DAILY PO Last adm inistered on 09/21/18at 08:33; Admin Dose 1 TAB; Start 09/21/18 at 09:00 Prochlorperazine (Compazine) 5 mg Q6H PRN PO NAUSEA AND/OR VOMITING; Start 09/20/18 at 18:30 Propranolol HCl (Inderal) 20 mg TID PO ; Start 09/20/18 at 21:00 Prednisone (Prednisone) 5 mg DAILY PO Last administered on 09/21/18at 08:34; Admin Dose 5 MG; Start 09/21/18 at 09:00; Stop 09/22/18 at 09:01 Fluconazole (Diflucan) 100 mg DAILY PO ; Start 09/21/18 at 13:00 MARCO A NAJERA MD Sep 21, 2018 11:42
[2018-09-21] MEDS: FLUCONAZOLE 100 MG TAB PO SCH (12:45)
--- NOTE | 2018-09-21 15:02 | CONS ---
DATE OF ADMISSION: 09/19/2018 DATE OF CONSULTATION: REASON FOR CONSULT: Tracheostomy management. HISTORY OF PRESENT ILLNESS: This is an 83-year-old gentleman transferred from [facility] where he was originally admitted for management of respiratory failure. The patient had initijulianna palencia admitted to [facility] with pneumonia and an empyema and subsequent respiratory failure requiring intubation, mechanical ventilation. He underwent thoracotomy complicated by bleeding into the pleural space. Subsequently, required tracheostomy and PEG tube placement. The patient was chavis sferred to [facility] where he was weaned off mechanical ventilation and tracheostom y is now capped. In addition, he appears to have safe p.o. intake. He is now currently receiving era for critical illness myopathy and speech therapy. PAST MEDICAL HISTORY: As above, includes atrial fibrillation, hypertension, hyperlipidemia, chronic kidney disease. MEDICATIONS: Per chart. ALLERGIES: NONE. SOCIAL HISTORY: Nonsmoker, no alcohol, no history of drug use. FAMILY HISTORY: Noncontributory. SYSTEMS REVIEW: A 12-point review of systems was negative other than that mentioned above. PHYSICAL EXAMINATION: GENERAL: Elderly-appearing gentleman, appears comfortable at rest, no acute distress. VITAL SIGNS: Currently afebrile, pulse is 80, blood pressure 135/63, O2 saturation 99% on room air. HEENT: Trach site is capped. NECK: Supple. No JVD or lymphadenopathy. CARDIAC: S1, S2, no added sounds or murmurs. CHEST: Diminished air entry bilaterally. ABDOMEN: Soft, nontender. No guarding or rebound. EXTREMITIES: No cyanosis, clubbing, 1+ edema. NEUROLOGIC: Generalized weakness. LABORATORIES: White count 6.7, hemoglobin 10.7, platelets 186, BUN 82, creatinine 1.51. IMPRESSION AND PLAN: 1. Status post hypoxemic respiratory failure now with tracheostomy capped. 2. History of atrial fibrillation. 3. History of empyema status post decortication. PLAN: 1. The patient should continue with speech therapy recommendations. 2. Continue with tracheostomy capped. 3. Anticipate decannulation early next week if no evidence of aspiration and cleared by speech thera py. Dictated By: CAROLINA BENAVIDES MD SV/PAPA Conf#: [id number] DID#: [id number] CC: CHARLENE LYMAN DO; JESUS CHAMBERS MD;*[facility]*
[2018-09-21 19:47] VITALS: BP 118/67; PULSE 88; RESP 18
[2018-09-21] MEDS: SENNA TAB PO SCH (20:37)
[2018-09-21] MEDS: INSULIN GLARGINE [LANTus] (100 UNITS/ML) SYG SC SCH (23:35)
[2018-09-22] MEDS: LEVALBUTEROL (NEB) 0.63 MG/3 ML AMP HHN SCH ×4 (01:43→19:22)
[2018-09-22 02:00] VITALS: BP 112/70; PULSE 77; RESP 18
[2018-09-22] MEDS: ACCU-CHEK XX SCH (02:00)
[2018-09-22 07:00] VITALS: BP 100/67; PULSE 100; RESP 18
[2018-09-22] MEDS: LANSOPRAZOLE 30 MG CAP PO SCH (07:19)
[2018-09-22] MEDS: LEVOTHYROXINE 137 MCG TAB PO SCH (07:19)
[2018-09-22] MEDS: INSULIN ASPART [NOVOLOG] 3 ML PEN SC SCH ×4 (07:35→20:51)
[2018-09-22] MEDS: TOBRAMYCIN/DEXAMETH 2.5 ML OPH BOTH EYES SCH ×4 (08:58→20:49)
[2018-09-22] MEDS: TAMSULOSIN (SR) 0.4 MG CAP PO SCH (08:59)
[2018-09-22] MEDS: PROPRANOLOL 20 MG TAB PO SCH ×3 (09:00→20:47)
[2018-09-22] MEDS: FOLIC ACID 1 MG TAB PO SCH (09:04)
[2018-09-22] MEDS: DOCUSATE SODIUM 10 MG/ML (10ML CUP) PO SCH ×2 (09:04→20:50)
[2018-09-22] MEDS: FLUCONAZOLE 100 MG TAB PO SCH (09:04)
[2018-09-22] MEDS: GLYCOPYRROLATE 1 MG TAB PO SCH ×2 (09:05→20:47)
[2018-09-22] MEDS: FEBUXOSTAT 40 MG TABLET PO SCH (09:05)
[2018-09-22] MEDS: CHOLECALCIFEROL 1,000 UNIT TAB PO SCH (09:05)
[2018-09-22] MEDS: MULTIVIT/CA CARB/B CMPLX/FA TAB PO SCH (09:05)
[2018-09-22] MEDS: predniSONE 5 MG TAB PO SCH (09:05)
[2018-09-22] MEDS: HEPARIN 5,000 UNIT/1 ML VIAL SC SCH ×2 (09:06→20:49)
[2018-09-22] MEDS: MICONAZOLE 2% 30 GM CR TOP SCH ×2 (09:07→21:04)
--- NOTE | 2018-09-22 09:18 | PN ---
Date/Time of Note Date/Time of Note DATE: 09/22/18 TIME: 09:17 Assessment/Plan VTE Prophylaxis Risk score (from Nsg)>0 risk: 6 SCD applied (from Nsg): Yes Pharmacological prophylaxis: other Lines/Catheters IV Catheter Type (from Nrsg): Peripheral IV Urinary Cath still in place: No Assessment/Plan Hospital Course SUBJECTIVE: The patient is stable, tolerating p.o. well. No other events noted. No hemoptysis, hematemesis, hematochezia. d/w family doing well with PT/OT OBJECTIVE: HEENT: Head is normocephalic. NECK: Supple. HEART: Regular rate. LUNGS: Show diminished breath sounds at the base. ABDOMEN: Soft, nontender to palpation without rebound or guarding. EXTREMITIES: Negative for clubbing, cyanosis, no edema. DERMATOLOGIC: No rashes. MUSCULOSKELETAL: No joint effusions. NEUROLOGIC: No change in exam. MEDICATIONS: Have been reviewed. ASSESSMENT AND PLAN: 1. Chronic respiratory failure, status post trach. Patient's trach is currently capped. pulmonary is following the patient for possibility of decannulation early next week 2. Dysphagia, status post percutaneous endoscopic gastrostomy. Patient is tolerating p.o., we will place a GI consult for possible PEG removal. 3. Chronic kidney disease, stage IIIB/IV. Patient's renal function is stable. Continue current treatment plan, supportive care, renally dose all meds. 4. Mild hyperkalemia secondary to chronic kidney, Aldactone, resolved. Continue to monitor. 5. Anemia. Monitor hemoglobin and hematocrit levels. 6. Mineral bone disorder. Monitor calcium and phosphorus levels. 7. History of diabetes. Continue Accu-Cheks and insulin sliding scale. 8. History of atrial fibrillation, currently in sinus rhythm. Continue to monitor. 9. Hypothyroidism. Continue Synthroid. 10. Benign prostatic hypertrophy. Continue Uloric. 11. Constipation. Continue current bowel regimen. 12. Hypertension. Continue current blood pressure regimen. Result Diagram: 09/21/18 0709/21/18 0706 Results 24hrs Laboratory Tests Test 09/21/18 10:49 09/21/18 16:39 09/21/18 20:07 09/21/18 23:32 Bedside Glucose 195 151 159 153 Test 09/22/18 08:08 Bedside Glucose 133 Exam/Review of Systems Exam Vitals Vital Signs Date Temp Pulse Resp B/P (MAP) Pulse Ox O2 O2 Flow FiO2 Time Delivery Rate 09/22/18 97.6 100 18 100/67 96 Room Air 07:00 (78) 09/21/18 21 20:01 Intake and Output 09/21/18 09/21/18 09/22/18 1515:00 23:00 07:00 IntakeIntake Total 200 ml 350 ml OutputOutput Total 100 ml 200 ml BalanceBalance 200 ml -100 ml 150 ml Results Results 24hrs Laboratory Tests Test 09/21/18 10:49 09/21/18 16:39 09/21/18 20:07 09/21/18 23:32 Bedside Glucose 195 151 159 153 Test 09/22/18 08:08 Bedside Glucose 133 Medications Medication Current Medications Senna (Senokot) 1 tab HS PO Last administered on 09/21/18at 20:37; Admin Dose 1 TAB; Start 09/19/18 at 21:00 Magnesium Hydroxide (Milk Of Mag) 30 ml BID PRN PO CONSTIPATION; Start 09/19/18 at 14:30 Lactulose (Enulose) 20 gm DAILY PRN PO CONSTIPATION; Start 09/19/18 at 14:30 Miscellaneous Information (Pending [facility] Order For Wound Care) This patient jean-baptiste... PRN PRN XX WOUND CARE; Start 09/19/18 at 14:30 Chlorhexidine Gluconate (Peridex) 15 ml BID MT Last administered on 09/21/18at 20:37; Admin Dose 15 ML; Start 09/19/18 at 17:00 Diphenhydramine HCl (Benadryl) 12.5 mg Q4H PRN IV ITCHING; Start 09/19/18 at 14:30 Febuxostat (Uloric) 40 mg DAILY PO Last administered on 09/22/18 09:05; Admin Dose 40 MG; Start 09/20/18 at 09:00 Heparin Sodium (Porcine) (Heparin (5000 Units/1ml)) 5,000 unit BID SC Last administered on 09/22/18 09:06; Admin Dose 5,000 UNIT; Start 09/19/18 at 21:00 Insulin Glargine (Lantus) 20 units DAILY@2000 SC Last administered on 09/21/18at 23:35; Admin Dose 20 UNITS; Start 09/19/18 at 20:00 Levalbuterol (Xopenex Neb) 0.63 mg Q6H RESP THERAPY HHN Last administered on 09/21/18at 20:00; Admin Dose 0.63 MG; Start 09/19/18 at 20:00 Miconazole Nitrate (Miconazole 2% Cr) 1 applic BID TOP Last administered on 09/22/18 09:07; Admin Dose 1 APPLIC; Start 09/19/18 at 21:00 Nalbuphine HCl (Nubain) 2 mg Q6 PRN IV PRURITUS; Start 09/19/18 at 14:30 Phenol (Chloraseptic Throat [place]) 2 spray Q3 PRN MT SORE THROAT; Start 09/19/18 at 14:30 Spironolactone (Aldactone) 25 mg DAILY GTB Last administered on 09/20/18at 08:29; Admin Dose 25 MG; Start 09/20/18 at 09:00; Status Hold Tamsulosin HCl (Flomax) 0.4 mg PC BREAKFAST PO Last administered on 09/22/18at 08:59; Admin Dose 0.4 MG; Start 09/20/18 at 08:35 Tobramycin/ Dexamethasone (Tobradex Oph Drop) 1 drop QID BOTH EYES Last administered on 09/22/18 08:58; Admin Dose 1 DROP; Start 09/19/18 at 17:00 Diagnostic Test (Pha) (Accu-Chek) 1 ea 02 XX ; Start 09/20/18 at 02:00 Insulin Aspart (Novolog Insulin Pen) NOVOLOG *MILD* ALGORITHM WITH MEALS BEDT ELLIOT SC Last administered on 09/21/18at 16:42; Admin Dose 1 UNIT; Start 09/19/18 at 17:35 Miscellaneous Information 1 ea NOTE XX ; Start 09/19/18 at 16:30 Glucose (Glutose) 15 gm Q15M PRN PO DECREASED GLUCOSE; Start 09/19/18 at 16:30 Glucose (Glutose) 22.5 gm Q15M PRN PO DECREASED GLUCOSE; Start 09/19/18 at 16:30 Dextrose (D50w Syringe) 25 ml Q15M PRN IV DECREASED GLUCOSE; Start 09/19/18 at 16:30 Dextrose (D50w Syringe) 50 ml Q15M PRN IV DECREASED GLUCOSE; Start 09/19/18 at 16:30 Glucagon (Glucagen) 1 mg Q15M PRN IM DECREASED GLUCOSE; Start 09/19/18 at 16:30 Glucose (Glutose) 15 gm Q15M PRN BUCCAL DECREASED GLUCOSE; Start 09/19/18 at 16:30 Bisacodyl (Dulcolax Supp) 10 mg DAILY PRN [place] CONSTIPATION; Start 09/20/18 at 01:00 Acetaminophen (Tylenol Liquid) 650 mg Q4H PRN PO MILD PAIN(1-3)OR ELEVATED TEMP; Start 09/20/18 at 18:30 Cholecalciferol (Vitamin D) 1,000 unit DAILY PO Last administered on 09/22/18 09:05; Admin Dose 1,000 UNIT; Start 09/21/18 at 09:00 Diphenhydramine HCl (Benadryl Liquid Cup) 25 mg Q4H PRN PO ITCHING; Start 09/20/18 at 18:30 Docusate Sodium (Colace Liquid Cup) 100 mg BID PO Last administered on 09/22/18 09:04; Admin Dose 100 MG; Start 09/20/18 at 21:00 Folic Acid (Folic Acid) 1 mg DAILY PO Last administered on 09/22/18 09:04; Admin Dose 1 MG; Start 09/21/18 at 09:00 Glycopyrrolate (Robinul) 1 mg BID PO Last administered on 09/22/18 09:05; Admi n Dose 1 MG; Start 09/20/18 at 21:00 Lansoprazole (Prevacid) 30 mg DAILY@06 PO Last administered on 09/22/18 07:19; Admin Dose 30 MG; Start 09/21/18 at 06:00 Levothyroxine Sodium (Synthroid) 137 mcg DAILY@06 PO Last administered on 09/22/18 07:19; Admin Dose 137 MCG; Start 09/21/18 at 06:00 Multivit/Ca Carb/ B Cmplx/FA/Prenat (Daphnie-Nikole) 1 tab DAILY PO Last administered on 09/22/18 09:05; Admin Dose 1 TAB; Start 09/21/18 at 09:00 Prochlorperazine (Compazine) 5 mg Q6H PRN PO NAUSEA AND/OR VOMITING; Start 09/20/18 at 18:30 Propranolol HCl (Inderal) 20 mg TID PO Last administered on 09/21/18at 20:38; Admin Dose 20 MG; Start 09/20/18 at 21:00 Fluconazole (Diflucan) 100 mg DAILY PO Last administered on 09/22/18at 09:04; Admin Dose 100 MG; Start 09/21/18 at 13:00 CHARLENE LYMAN DO Sep 22, 2018 09:18
--- NOTE | 2018-09-22 10:33 | PN ---
Date/Time of Note Date/Time of Note DATE: 09/22/18 TIME: 10:29 Subjective Hard of hearing Objective Vital Signs Date Temp Pulse Resp B/P (MAP) Pulse Ox O2 O2 Flow FiO2 Time Delivery Rate 09/22/18 97.6 100 18 100/67 96 Room Air 07:00 (78) 09/21/18 21 20:01 Intake and Output 09/21/18 09/21/18 09/22/18 1414:59 22:59 06:59 IntakeIntake Total 200 ml 350 ml OutputOutput Total 100 ml 200 ml BalanceBalance 200 ml -100 ml 150 ml Exam pulm-cta max assist Results/Medications Result Diagram: 09/21/18 0706 09/21/18 0706 Results 24 hrs Laboratory Tests Test 09/21/18 10:49 09/21/18 16:39 09/21/18 20:07 09/21/18 23:32 Bedside Glucose 195 151 159 153 Test 09/22/18 08:08 Bedside Glucose 133 Medications Current Medications Senna (Senokot) 1 tab HS PO Last administered on 09/21/18at 20:37; Admin Dose 1 TAB; Start 09/19/18 at 21:00 Magnesium Hydroxide (Milk Of Mag) 30 ml BID PRN PO CONSTIPATION; Start 09/19/18 at 14:30 Lactulose (Enulose) 20 gm DAILY PRN PO CONSTIPATION; Start 09/19/18 at 14:30 Miscellaneous Information (Pending [facility] Order For Wound Care) This patient jean-baptiste... PRN PRN XX WOUND CARE; Start 09/19/18 at 14:30 Diphenhydramine HCl (Benadryl) 12.5 mg Q4H PRN IV ITCHING; Start 09/19/18 at 14:30 Febuxostat (Uloric) 40 mg DAILY PO Last administered on 09/22/18at 09:05; Admin Dose 40 MG; Start 09/20/18 at 09:00 Heparin Sodium (Porcine) (Heparin (5000 Units/1ml)) 5,000 unit BID SC Last administered on 09/22/18at 09:06; Admin Dose 5,000 UNIT; Start 09/19/18 at 21:00 Insulin Glargine (Lantus) 20 units DAILY@2000 SC Last administered on 09/21/18at 23:35; Admin Dose 20 UNITS; Start 09/19/18 at 20:00 Levalbuterol (Xopenex Neb) 0.63 mg Q6H RESP THERAPY HHN Last administered on 09/21/18at 20:00; Admin Dose 0.63 MG; Start 09/19/18 at 20:00 Miconazole Nitrate (Miconazole 2% Cr) 1 applic BID TOP Last administered on 09/22/18 09:07; Admin Dose 1 APPLIC; Start 09/19/18 at 21:00 Nalbuphine HCl (Nubain) 2 mg Q6 PRN IV PRURITUS; Start 09/19/18 at 14:30 Phenol (Chloraseptic Throat [place]) 2 spray Q3 PRN MT SORE THROAT; Start 09/19/18 at 14:30 Spironolactone (Aldactone) 25 mg DAILY GTB Last administered on 09/20/18at 08:29; Admin Dose 25 MG; Start 09/20/18 at 09:00; Status Hold Tamsulosin HCl (Flomax) 0.4 mg PC BREAKFAST PO Last administered on 09/22/18at 08:59; Admin Dose 0.4 MG; Start 09/20/18 at 08:35 Tobramycin/ Dexamethasone (Tobradex Oph Drop) 1 drop QID BOTH EYES Last administered on 09/22/18 08:58; Admin Dose 1 DROP; Start 09/19/18 at 17:00 Diagnostic Test (Pha) (Accu-Chek) 1 ea 02 XX ; Start 09/20/18 at 02:00 Insulin Aspart (Novolog Insulin Pen) NOVOLOG *MILD* ALGORITHM WITH MEALS BEDTIME SC Last administered on 09/21/18at 16:42; Admin Dose 1 UNIT; Start 09/19/18 at 17:35 Miscellaneous Information 1 ea NOTE XX ; Start 09/19/18 at 16:30 Glucose (Glutose) 15 gm Q15M PRN PO DECREASED GLUCOSE; Start 09/19/18 at 16:30 Glucose (Glutose) 22.5 gm Q15M PRN PO DECREASED GLUCOSE; Start 09/19/18 at 16:30 Dextrose (D50w Syringe) 25 ml Q15M PRN IV DECREASED GLUCOSE; Start 09/19/18 at 16:30 Dextrose (D50w Syringe) 50 ml Q15M PRN IV DECREASED GLUCOSE; Start 09/19/18 at 16:30 Glucagon (Glucagen) 1 mg Q15M PRN IM DECREASED GLUCOSE; Start 09/19/18 at 16:30 Glucose (Glutose) 15 gm Q15M PRN BUCCAL DECREASED GLUCOSE; Start 09/19/18 at 16:30 Bisacodyl (Dulcolax Supp) 10 mg DAILY PRN [place] CONSTIPATION; Start 09/20/18 at 01:00 Acetaminophen (Tylenol Liquid) 650 mg Q4H PRN PO MILD PAIN(1-3)OR ELEVATED TEMP; Start 09/20/18 at 18:30 Cholecalciferol (Vitamin D) 1,000 unit DAILY PO Last administered on 09/22/18 09:05; Admin Dose 1,000 UNIT; Start 09/21/18 at 09:00 Diphenhydramine HCl (Benadryl Liquid Cup) 25 mg Q4H PRN PO ITCHING; Start 09/20/18 at 18:30 Docusate Sodium (Colace Liquid Cup) 100 mg BID PO Last administered on 09/22/18 09:04; Admin Dose 100 MG; Start 09/20/18 at 21:00 Folic Acid (Folic Acid) 1 mg DAILY PO Last administered on 09/22/18at 09:04; Admin Dose 1 MG; Start 09/21/18 at 09:00 Glycopyrrolate (Robinul) 1 mg BID PO Last administered on 09/22/18 09:05; Admin Dose 1 MG; Start 09/20/18 at 21:00 Lansoprazole (Prevacid) 30 mg DAILY@06 PO Last administered on 09/22/18 07:19; Admin Dose 30 MG; Start 09/21/18 at 06:00 Levothyroxine Sodium (Synthroid) 137 mcg DAILY@06 PO Last administered on 09/22/18 07:19; Admin Dose 137 MCG; Start 09/21/18 at 06:00 Multivit/Ca Carb/ B Cmplx/FA/Prenat (Daphnie-Nikole) 1 tab DAILY PO Last administered on 09/22/18at 09:05; Admin Dose 1 TAB; Start 09/21/18 at 09:00 Prochlorperazine (Compazine) 5 mg Q6H PRN PO NAUSEA AND/OR VOMITING; Start 09/20/18 at 18:30 Propranolol HCl (Inderal) 20 mg TID PO Last administered on 09/21/18at 20:38; Admin Dose 20 MG; Start 09/20/18 at 21:00 Fluconazole (Diflucan) 100 mg DAILY PO Last administered on 09/22/18at 09:04; Admin Dose 100 MG; Start 09/21/18 at 13:00 Assessment/Plan Additional Assessment/Plan Rehab- Critical illness myopathy; debility - S/p acute respiratory failure Tolerating rehab program Pulm- s/p resp failure, right empyema and thoracotomy with decortication, COPD and tracheostomy currently capped. Chronic atrial fibrillation. Chronic kidney disease. Anemia. BPH. Hypertension. Diabetes mellitus. Impairments in hearing. JESUS CHAMBERS MD Sep 22, 2018 10:33
[2018-09-22 14:00] VITALS: BP 100/58; PULSE 99; RESP 16
[2018-09-22 19:32] VITALS: BP 109/65; PULSE 98; RESP 18
[2018-09-22] MEDS: INSULIN GLARGINE [LANTus] (100 UNITS/ML) SYG SC SCH (20:49)
[2018-09-22] MEDS: SENNA TAB PO SCH (20:51)
[2018-09-23] MEDS: LEVALBUTEROL (NEB) 0.63 MG/3 ML AMP HHN SCH ×4 (01:02→19:50)
[2018-09-23 02:00] VITALS: BP 120/73; PULSE 93; RESP 18
[2018-09-23] MEDS: ACCU-CHEK XX SCH (02:00)
[2018-09-23] MEDS: LANSOPRAZOLE 30 MG CAP PO SCH (06:14)
[2018-09-23] MEDS: LEVOTHYROXINE 137 MCG TAB PO SCH (06:14)
[2018-09-23 07:00] VITALS: BP 117/66; PULSE 115; RESP 18
[2018-09-23] MEDS: INSULIN ASPART [NOVOLOG] 3 ML PEN SC SCH ×4 (07:35→20:44)
--- NOTE | 2018-09-23 08:53 | PN ---
Date/Time of Note Date/Time of Note DATE: 09/23/18 TIME: 08:52 Assessment/Plan VTE Prophylaxis Risk score (from Nsg)>0 risk: 5 SCD applied (from Nsg): Yes Pharmacological prophylaxis: other Lines/Catheters IV Catheter Type (from Nrsg): Peripheral IV Urinary Cath still in place: No Assessment/Plan Hospital Course SUBJECTIVE: The patient is stable, tolerating p.o. well. No other events noted. No hemoptysis, hematemesis, hematochezia. d/w family doing well with PT/OT OBJECTIVE: HEENT: Head is normocephalic. NECK: Supple. HEART: Regular rate. LUNGS: Show diminished breath sounds at the base. ABDOMEN: Soft, nontender to palpation without rebound or guarding. EXTREMITIES: Negative for clubbing, cyanosis, no edema. DERMATOLOGIC: No rashes. MUSCULOSKELETAL: No joint effusions. NEUROLOGIC: No change in exam. MEDICATIONS: Have been reviewed. ASSESSMENT AND PLAN: 1. Chronic respiratory failure, status post trach. Patient's trach is currently capped. pulmonary is following the patient for possibility of decannulation early next week 2. Dysphagia, status post percutaneous endoscopic gastrostomy. Patient is tolerating p.o., we will place a GI consult for possible PEG removal. 3. Chronic kidney disease, stage IIIB/IV. Patient's renal function is stable. Continue current treatment plan, supportive care, renally dose all meds. 4. Mild hyperkalemia secondary to chronic kidney, Aldactone, resolved. Continue to monitor. 5. Anemia. Monitor hemoglobin and hematocrit levels. 6. Mineral bone disorder. Monitor calcium and phosphorus levels. 7. History of diabetes. Continue Accu-Cheks and insulin sliding scale. 8. History of atrial fibrillation, currently in sinus rhythm. Continue to monitor. 9. Hypothyroidism. Continue Synthroid. 10. Benign prostatic hypertrophy. Continue Uloric. 11. Constipation. Continue current bowel regimen. 12. Hypertension. Continue current blood pressure regimen. Result Diagram: 09/21/18 0709/21/18 0706 Results 24hrs Laboratory Tests Test 09/22/18 11:58 09/22/18 17:31 09/22/18 20:45 09/23/18 07:56 Bedside Glucose 128 138 168 113 Exam/Review of Systems Exam Vitals Vital Signs Date Temp Pulse Resp B/P (MAP) Pulse Ox O2 O2 Flow FiO2 Time Delivery Rate 09/23/18 114 16 95 21 07:51 09/23/18 98.3 117/66 Room Air 07:00 (83) Intake and Output 09/22/18 09/22/18 09/23/18 1515:00 23:00 07:00 IntakeIntake Total 800 ml OutputOutput Total 600 ml 450 ml BalanceBalance 200 ml -450 ml Results Results 24hrs Laboratory Tests Test 09/22/18 11:58 09/22/18 17:31 09/22/18 20:45 09/23/18 07:56 Bedside Glucose 128 138 168 113 Medications Medication Current Medications Senna (Senokot) 1 tab HS PO Last administered on 09/21/18 20:37; Admin Dose 1 TAB; Start 09/19/18 at 21:00 Magnesium Hydroxide (Milk Of Mag) 30 ml BID PRN PO CONSTIPATION; Start 09/19/18 at 14:30 Lactulose (Enulose) 20 gm DAILY PRN PO CONSTIPATION; Start 09/19/18 at 14:30 Miscellaneous Information (Pending [facility] Order For [facility] Care) This patient jean-baptiste... PRN PRN XX WOUND CARE; Start 09/19/18 at 14:30 Diphenhydramine HCl (Benadryl) 12.5 mg Q4H PRN IV ITCHING; Start 09/19/18 at 14:30 Febuxostat (Uloric) 40 mg DAILY PO Last administered on 09/22/18 09:05; Admin Dose 40 MG; Start 09/20/18 at 09:00 Heparin Sodium (Porcine) (Heparin (5000 Units/1ml)) 5,000 unit BID SC Last administered on 09/22/18 20:49; Admin Dose 5,000 UNIT; Start 09/19/18 at 21:00 Insulin Glargine (Lantus) 20 units DAILY@2000 SC Last administered on 09/22/18 20:49; Admin Dose 20 UNITS; Start 09/19/18 at 20:00 Levalbuterol (Xopenex Neb) 0.63 mg Q6H RESP THERAPY HHN Last administered on 09/23/18 07:50; Admin Dose 0.63 MG; Start 09/19/18 at 20:00 Miconazole Nitrate (Miconazole 2% Cr) 1 applic BID TOP Last administered on 09/22/18at 21:04; Admin Dose 1 APPLIC; Start 09/19/18 at 21:00 Nalbuphine HCl (Nubain) 2 mg Q6 PRN IV PRURITUS; Start 09/19/18 at 14:30 Phenol (Chloraseptic Throat [place]) 2 spray Q3 PRN MT SORE THROAT; Start 09/19/18 at 14:30 Spironolactone (Aldactone) 25 mg DAILY GTB Last administered on 09/20/18at 08:29; Admin Dose 25 MG; Start 09/20/18 at 09:00; Status Hold Tamsulosin HCl (Flomax) 0.4 mg PC BREAKFAST PO Last administered on 09/22/18at 08:59; Admin Dose 0.4 MG; Start 09/20/18 at 08:35 Tobramycin/ Dexamethasone (Tobradex Oph Drop) 1 drop QID BOTH EYES Last administered on 09/22/18at 20:49; Admin Dose 1 DROP; Start 09/19/18 at 17:00 Diagnostic Test (Pha) (Accu-Chek) 1 ea 02 XX ; Start 09/20/18 at 02:00 Insulin Aspart (Novolog Insulin Pen) NOVOLOG *MILD* ALGORITHM WITH MEALS BEDTIME SC Last administered on 09/21/18at 16:42; Admin Dose 1 UNIT; Start 09/19/18 at 17:35 Miscellaneous Information 1 ea NOTE XX ; Start 09/19/18 at 16:30 Glucose (Glutose) 15 gm Q15M PRN PO DECREASED GLUCOSE; Start 09/19/18 at 16:30 Glucose (Glutose) 22.5 gm Q15M PRN PO DECREASED GLUCOSE; Start 09/19/18 at 16:30 Dextrose (D50w Syringe) 25 ml Q15M PRN IV DECREASED GLUCOSE; Start 09/19/18 at 16:30 Dextrose (D50w Syringe) 50 ml Q15M PRN IV DECREASED GLUCOSE; Start 09/19/18 at 16:30 Glucagon (Glucagen) 1 mg Q15M PRN IM DECREASED GLUCOSE; Start 09/19/18 at 16:30 Glucose (Glutose) 15 gm Q15M PRN BUCCAL DECREASED GLUCOSE; Start 09/19/18 at 16:30 Bisacodyl (Dulcolax Supp) 10 mg DAILY PRN [place] CONSTIPATION; Start 09/20/18 at 01:00 Acetaminophen (Tylenol Liquid) 650 mg Q4H PRN PO MILD PAIN(1-3)OR ELEVATED TEMP; Start 09/20/18 at 18:30 Cholecalciferol (Vitamin D) 1,000 unit DAILY PO Last administered on 09/22/18 09:05; Admin Dose 1,000 UNIT; Start 09/21/18 at 09:00 Diphenhydramine HCl (Benadryl Liquid Cup) 25 mg Q4H PRN PO ITCHING; Start 09/20/18 at 18:30 Docusate Sodium (Colace Liquid Cup) 100 mg BID PO Last administered on 09/22/18 t 09:04; Admin Dose 100 MG; Start 09/20/18 at 21:00 Folic Acid (Folic Acid) 1 mg DAILY PO Last administered on 09/22/18 09:04; Admin Dose 1 MG; Start 09/21/18 at 09:00 Glycopyrrolate (Robinul) 1 mg BID PO Last administered on 09/22/18 20:47; Admin Dose 1 MG; Start 09/20/18 at 21:00 Lansoprazole (Prevacid) 30 mg DAILY@06 PO Last administered on 09/23/18 06:14; Admin Dose 30 MG; Start 09/21/18 at 06:00 Levothyroxine Sodium (Synthroid) 137 mcg DAILY@06 PO Last administered on 09/23/18 06:14; Admin Dose 137 MCG; Start 09/21/18 at 06:00 Multivit/Ca Carb/ B Cmplx/FA/Prenat (Daphnie-Nikole) 1 tab DAILY PO Last administered on 09/22/18 09:05; Admin Dose 1 TAB; Start 09/21/18 at 09:00 Prochlorperazine (Compazine) 5 mg Q6H PRN PO NAUSEA AND/OR VOMITING; Start 09/20/18 at 18:30 Propranolol HCl (Inderal) 20 mg TID PO Last administered on 09/22/18 14:04; Admin Dose 20 MG; Start 09/20/18 at 21:00 Fluconazole (Diflucan) 100 mg DAILY PO Last administered on 09/22/18 09:04; Admin Dose 100 MG; Start 09/21/18 at 13:00 CHARLENE LYMAN DO Sep 23, 2018 08:52
[2018-09-23] MEDS: PROPRANOLOL 20 MG TAB PO SCH ×3 (09:00→20:39)
[2018-09-23] MEDS: TOBRAMYCIN/DEXAMETH 2.5 ML OPH BOTH EYES SCH ×4 (09:37→20:36)
[2018-09-23] MEDS: DOCUSATE SODIUM 10 MG/ML (10ML CUP) PO SCH ×2 (09:37→20:38)
[2018-09-23] MEDS: GLYCOPYRROLATE 1 MG TAB PO SCH ×2 (09:39→20:36)
[2018-09-23] MEDS: FOLIC ACID 1 MG TAB PO SCH (09:39)
[2018-09-23] MEDS: CHOLECALCIFEROL 1,000 UNIT TAB PO SCH (09:39)
[2018-09-23] MEDS: MULTIVIT/CA CARB/B CMPLX/FA TAB PO SCH (09:39)
[2018-09-23] MEDS: FLUCONAZOLE 100 MG TAB PO SCH (09:39)
[2018-09-23] MEDS: FEBUXOSTAT 40 MG TABLET PO SCH (09:39)
[2018-09-23] MEDS: TAMSULOSIN (SR) 0.4 MG CAP PO SCH (09:39)
[2018-09-23] MEDS: MICONAZOLE 2% 30 GM CR TOP SCH ×2 (09:42→20:47)
[2018-09-23] MEDS: HEPARIN 5,000 UNIT/1 ML VIAL SC SCH ×2 (09:50→20:44)
[2018-09-23 14:00] VITALS: BP 111/74; PULSE 108; RESP 18
[2018-09-23] MEDS: INSULIN GLARGINE [LANTus] (100 UNITS/ML) SYG SC SCH (20:07)
[2018-09-23 20:18] VITALS: BP 114/59; PULSE 72; RESP 18
[2018-09-23] MEDS: SENNA TAB PO SCH (20:38)
[2018-09-24] MEDS: ACCU-CHEK XX SCH (02:00)
[2018-09-24] MEDS: LEVALBUTEROL (NEB) 0.63 MG/3 ML AMP HHN SCH ×4 (02:03→19:40)
[2018-09-24 02:25] VITALS: BP 101/55; PULSE 64; RESP 18
[2018-09-24] MEDS: LANSOPRAZOLE 30 MG CAP PO SCH (06:15)
[2018-09-24] MEDS: LEVOTHYROXINE 137 MCG TAB PO SCH (06:15)
[2018-09-24 07:00] VITALS: BP 102/58; PULSE 71; RESP 18
[2018-09-24] MEDS: INSULIN ASPART [NOVOLOG] 3 ML PEN SC SCH ×4 (07:35→20:53)
[2018-09-24] MEDS: PROPRANOLOL 20 MG TAB PO SCH ×3 (09:00→20:49)
[2018-09-24] MEDS: TOBRAMYCIN/DEXAMETH 2.5 ML OPH BOTH EYES SCH ×4 (09:47→20:49)
[2018-09-24] MEDS: FOLIC ACID 1 MG TAB PO SCH (09:49)
[2018-09-24] MEDS: HEPARIN 5,000 UNIT/1 ML VIAL SC SCH ×2 (09:49→20:54)
[2018-09-24] MEDS: CHOLECALCIFEROL 1,000 UNIT TAB PO SCH (09:49)
[2018-09-24] MEDS: GLYCOPYRROLATE 1 MG TAB PO SCH ×2 (09:49→21:06)
[2018-09-24] MEDS: DOCUSATE SODIUM 10 MG/ML (10ML CUP) PO SCH ×2 (09:49→20:43)
[2018-09-24] MEDS: FEBUXOSTAT 40 MG TABLET PO SCH (09:49)
[2018-09-24] MEDS: FLUCONAZOLE 100 MG TAB PO SCH (09:49)
[2018-09-24] MEDS: TAMSULOSIN (SR) 0.4 MG CAP PO SCH (09:50)
[2018-09-24] MEDS: MICONAZOLE 2% 30 GM CR TOP SCH ×2 (09:59→20:58)
[2018-09-24] MEDS: MULTIVIT/CA CARB/B CMPLX/FA TAB PO SCH (10:01)
--- NOTE | 2018-09-24 10:02 | PN ---
DATE: 09/24/2018 SUBJECTIVE: The patient is stable, no events overnight. OBJECTIVE: VITAL SIGNS: Blood pressure is 102/58, pulse 71, respirations 18, temperature 97.5. HEENT: Head is normocephalic. NECK: Supple. HEART: Regular rate. LUNGS: Show diminished breath sounds at the base. ABDOMEN: Soft, nontender to palpation without rebound or guarding. EXTREMITIES: Negative for clubbing, cyanosis, no edema. DERMATOLOGIC: No rashes. MUSCULOSKELETAL: No joint effusion. NEUROLOGIC: No change in exam. MEDICATIONS: Reviewed. LABORATORY DATA: Reviewed. ASSESSMENT AND PLAN: 1. Chronic respiratory failure, status post trach. The patient was seen by pulmonary, pending decan nulation. 2. Dysphagia status post PEG. The patient is tolerating p.o. We will place a GI consult for PEG re moval. 3. Chronic kidney disease, stage IIIB/IV. The patient's renal function is stable. Continue current treatment plan, supportive care, renally dose all medicines. 4. Mild hyperkalemia, resolved. 5. Anemia. Continue to monitor hemoglobin and hematocrit levels. We will give Epogen as needed. 6. Mineral bone disorder, monitor calcium and phosphorus levels. 7. Diabetes. Continue current insulin regimen. 8. Atrial fibrillation, currently in sinus rhythm. Continue to monitor. 9. Hypothyroidism. Continue Synthroid. 10. Benign prostatic hypertrophy. Continue Uloric. 11. Constipation. Continue current bowel regimen. 12. Hypertension. Continue current blood pressure regimen. Dictated By: FARAZ GONGORA DO NR/NTS Conf#: [id number] DID#: [id number] CC: CAROLINA BENAVIDES MD; CHARLENE LYMAN DO; JESUS CHAMBERS MD;*EndCC*
--- NOTE | 2018-09-24 12:45 | PN ---
Date/Time of Note Date/Time of Note DATE: 09/24/18 TIME: 12:43 Objective Vital Signs Date Temp Pulse Resp B/P (MAP) Pulse Ox O2 O2 Flow FiO2 Time Delivery Rate 09/24/18 71 18 97 21 07:34 09/24/18 97.5 102/58 Room Air 07:00 (73) Intake and Output 09/23/18 09/23/18 09/24/18 1515:00 23:00 07:00 IntakeIntake Total 1200 ml OutputOutput Total 600 ml 350 ml BalanceBalance 600 ml -350 ml Exam INTERDISCIPLINARY TEAM CONFERENCE Physical Exam: Pulm- cta Abd- soft BOWEL- Cont BLADDER-Cont/incont SKIN- improving OT- DRESSING-mod/max BATHING-mod/max TOILETING-max PT- BED MOBILITY-mod TRANSFERS-mod AMBULATION-mod 40 feet SPEECH- COGNITION- min Dysphagia- soft chopped diet A/P- Interdisciplinary team conference held today. Please see interdisciplinary sheet. Working toward d.c. on 10/05 with post discharge follow up of physical therapy, occupational therapy. Results/Medications Result Diagram: 09/21/1806 09/21/18 07 Results 24 hrs Laboratory Tests Test 09/23/18 17:20 09/23/18 20:04 09/24/18 07:58 09/24/18 12:07 Bedside Glucose 159 153 106 120 Medications Current Medications Senna (Senokot) 1 tab HS PO Last administered on 09/21/18at 20:37; Admin Dose 1 TAB; Start 09/19/18 at 21:00 Magnesium Hydroxide (Milk Of Mag) 30 ml BID PRN PO CONSTIPATION; Start 09/19/18 at 14:30 Lactulose (Enulose) 20 gm DAILY PRN PO CONSTIPATION; Start 09/19/18 at 14:30 Miscellaneous Information (Pending [facility]yl Order For Wound Care) This patient jean-baptiste... PRN PRN XX WOUND CARE; Start 09/19/18 at 14:30 Diphenhydramine HCl (Benadryl) 12.5 mg Q4H PRN IV ITCHING; Start 09/19/18 at 14:30 Febuxostat (Uloric) 40 mg DAILY PO Last administered on 09/24/18at 09:49; Admin Dose 40 MG; Start 09/20/18 at 09:00 Heparin Sodium (Porcine) (Heparin (5000 Units/1ml)) 5,000 unit BID SC Last administered on 09/24/18 09:49; Admin Dose 5,000 UNIT; Start 09/19/18 at 21:00 Insulin Glargine (Lantus) 20 units DAILY@2000 SC Last administered on 09/23/18 20:07; Admin Dose 20 UNITS; Start 09/19/18 at 20:00 Levalbuterol (Xopenex Neb) 0.63 mg Q6H RESP THERAPY HHN Last administered on 09/24/18 07:34; Admin Dose 0.63 MG; Start 09/19/18 at 20:00 Miconazole Nitrate (Miconazole 2% Cr) 1 applic BID TOP Last administered on 09/24/18 09:59; Admin Dose 1 APPLIC; Start 09/19/18 at 21:00 Nalbuphine HCl (Nubain) 2 mg Q6 PRN IV PRURITUS; Start 09/19/18 at 14:30 Phenol (Chloraseptic Throat [place]) 2 spray Q3 PRN MT SORE THROAT; Start 09/19/18 at 14:30 Spironolactone (Aldactone) 25 mg DAILY GTB Last administered on 09/20/18 08:29; Admin Dose 25 MG; Start 09/20/18 at 09:00; Status Hold Tamsulosin HCl (Flomax) 0.4 mg PC BREAKFAST PO Last administered on 09/24/18 09:50; Admin Dose 0.4 MG; Start 09/20/18 at 08:35 Tobramycin/ Dexamethasone (Tobradex Oph Drop) 1 drop QID BOTH EYES Last administered on 09/24/18 09:47; Admin Dose 1 DROP; Start 09/19/18 at 17:00 Diagnostic Test (Pha) (Accu-Chek) 1 ea 02 XX ; Start 09/20/18 at 02:00 Insulin Aspart (Novolog Insulin Pen) NOVOLOG *MILD* ALGORITHM WITH MEALS BEDTIME SC Last administered on 09/23/18 17:39; Admin Dose 1 UNIT; Start 09/19/18 at 17:35 Miscellaneous Information 1 ea NOTE XX ; Start 09/19/18 at 16:30 Glucose (Glutose) 15 gm Q15M PRN PO DECREASED GLUCOSE; Start 09/19/18 at 16:30 Glucose (Glutose) 22.5 gm Q15M PRN PO DECREASED GLUCOSE; Start 09/19/18 at 16:30 Dextrose (D50w Syringe) 25 ml Q15M PRN IV DECREASED GLUCOSE; Start 09/19/18 at 16:30 Dextrose (D50w Syringe) 50 ml Q15M PRN IV DECREASED GLUCOSE; Start 09/19/18 at 16:30 Glucagon (Glucagen) 1 mg Q15M PRN IM DECREASED GLUCOSE; Start 09/19/18 at 16:30 Glucose (Glutose) 15 gm Q15M PRN BUCCAL DECREASED GLUCOSE; Start 09/19/18 at 16:30 Bisacodyl (Dulcolax Supp) 10 mg DAILY PRN [place] CONSTIPATION; Start 09/20/18 at 01:00 Acetaminophen (Tylenol Liquid) 650 mg Q4H PRN PO MILD PAIN(1-3)OR ELEVATED TEMP; Start 09/20/18 at 18:30 Cholecalciferol (Vitamin D) 1,000 unit DAILY PO Last administered on 09/24/18 09:49; Admin Dose 1,000 UNIT; Start 09/21/18 at 09:00 Diphenhydramine HCl (Benadryl Liquid Cup) 25 mg Q4H PRN PO ITCHING; Start 09/20/18 at 18:30 Docusate Sodium (Colace Liquid Cup) 100 mg BID PO Last administered on 09/24/18 09:49; Admin Dose 100 MG; Start 09/20/18 at 21:00 Folic Acid (Folic Acid) 1 mg DAILY PO Last administered on 09/24/18 09:49; Admin Dose 1 MG; Start 09/21/18 at 09:00 Glycopyrrolate (Robinul) 1 mg BID PO Last administered on 09/24/18 09:49; Admin Dose 1 MG; Start 09/20/18 at 21:00 Lansoprazole (Prevacid) 30 mg DAILY@06 PO Last administered on 09/24/18 06:15; Admin Dose 30 MG; Start 09/21/18 at 06:00 Levothyroxine Sodium (Synthroid) 137 mcg DAILY@06 PO Last administered on 09/24/18 06:15; Admin Dose 137 MCG; Start 09/21/18 at 06:00 Multivit/Ca Carb/ B Cmplx/FA/Prenat (Daphnie-Nikole) 1 tab DAILY PO Last administered on 09/24/18at 10:01; Admin Dose 1 TAB; Start 09/21/18 at 09:00 Prochlorperazine (Compazine) 5 mg Q6H PRN PO NAUSEA AND/OR VOMITING; Start 09/20/18 at 18:30 Propranolol HCl (Inderal) 20 mg TID PO Last administered on 09/22/18at 14:04; Admin Dose 20 MG; Start 09/20/18 at 21:00 Fluconazole (Diflucan) 100 mg DAILY PO Last administered on 09/24/18at 09:49; Admin Dose 100 MG; Start 09/21/18 at 13:00 JESUS CHAMBERS MD Sep 24, 2018 12:44
[2018-09-24 14:00] VITALS: BP 121/86; PULSE 96; RESP 18
--- NOTE | 2018-09-24 14:39 | CONS ---
Consult Date/Type/Reason Admit Date/Time Sep 19, 2018 at 13:50 Initial Consult Date 09/21/18 Type of Consult Pulmonary Requesting Provider: FARAZ GONGORA DO Date/Time of Note DATE: 09/24/18 TIME: 14:37 Subjective Patient remained stable this morning no respiratory distress eating full regular diet. Objective Vital Signs Date Temp Pulse Resp B/P (MAP) Pulse Ox O2 O2 Flow FiO2 Time Delivery Rate 09/24/18 69 18 95 21 13:33 09/24/18 97.5 102/58 Room Air 07:00 (73) Intake and Output 09/23/18 09/23/18 09/24/18 1414:59 22:59 06:59 IntakeIntake Total 1200 ml OutputOutput Total 600 ml 350 ml BalanceBalance 600 ml -350 ml Exam GENERAL: Well-nourished well-developed gentleman comfortable at rest no acute distress VITAL SIGNS: per chart NECK: Supple. No JVD or lymphadenopathy. Trach site clean and intact CARDIAC EXAM: S1, S2. No added sounds or murmurs. CHEST: clear bilaterally, No added sounds, rales or wheezes ABDOMEN: Soft, nontender. No guarding or rebound. EXTREMITIES: No cyanosis, clubbing or edema. NEUROLOGIC: Generalized weakness. No focal deficits. Vent Setting Fraction of Inspired Oxygen pe: 21 Results/Medications Result Diagram: 09/21/18 0706 09/21/18 0706 Results 24 hrs Laboratory Tests Test 09/23/18 17:20 09/23/18 20:04 09/24/18 07:58 09/24/18 12:07 Bedside Glucose 159 153 106 120 Medications Current Medications Senna (Senokot) 1 tab HS PO Last administered on 09/21/18at 20:37; Admin Dose 1 TAB; Start 09/19/18 at 21:00 Magnesium Hydroxide (Milk Of Mag) 30 ml BID PRN PO CONSTIPATION; Start 09/19/18 at 14:30 Lactulose (Enulose) 20 gm DAILY PRN PO CONSTIPATION; Start 09/19/18 at 14:30 Miscellaneous Information (Pending [facility] Order For Wound Care) This patient jean-baptiste... PRN PRN XX WOUND CARE; Start 09/19/18 at 14:30 Diphenhydramine HCl (Benadryl) 12.5 mg Q4H PRN IV ITCHING; Start 09/19/18 at 14:30 Febuxostat (Uloric) 40 mg DAILY PO Last administered on 09/24/18 09:49; Admin Dose 40 MG; Start 09/20/18 at 09:00 Heparin Sodium (Porcine) (Heparin (5000 Units/1ml)) 5,000 unit BID SC Last administered on 09/24/18 09:49; Admin Dose 5,000 UNIT; Start 09/19/18 at 21:00 Insulin Glargine (Lantus) 20 units DAILY@2000 SC Last administered on 09/23/18 20:07; Admin Dose 20 UNITS; Start 09/19/18 at 20:00 Levalbuterol (Xopenex Neb) 0.63 mg Q6H RESP THERAPY HHN Last administered on 09/24/18 13:33; Admin Dose 0.63 MG; Start 09/19/18 at 20:00 Miconazole Nitrate (Miconazole 2% Cr) 1 applic BID TOP Last administered on 09/24/18 09:59; Admin Dose 1 APPLIC; Start 09/19/18 at 21:00 Nalbuphine HCl (Nubain) 2 mg Q6 PRN IV PRURITUS; Start 09/19/18 at 14:30 Phenol (Chloraseptic Throat [place]) 2 spray Q3 PRN [place] SORE THROAT; Start 09/19/18 at 14:30 Spironolactone (Aldactone) 25 mg DAILY GTB Last administered on 09/20/18 08:29; Admin Dose 25 MG; Start 09/20/18 at 09:00; Status Hold Tamsulosin HCl (Flomax) 0.4 mg PC BREAKFAST PO Last administered on 09/24/18 09:50; Admin Dose 0.4 MG; Start 09/20/18 at 08:35 Tobramycin/ Dexamethasone (Tobradex Oph Drop) 1 drop QID BOTH EYES Last administered on 09/24/18 13:15; Admin Dose 1 DROP; Start 09/19/18 at 17:00 Diagnostic Test (Pha) (Accu-Chek) 1 ea 02 XX ; Start 09/20/18 at 02:00 Insulin Aspart (Novolog Insulin Pen) NOVOLOG *MILD* ALGORITHM WITH MEALS BEDTIME SC Last administered on 09/23/18 17:39; Admin Dose 1 UNIT; Start 09/19/18 at 17:35 Miscellaneous Information 1 ea NOTE XX ; Start 09/19/18 at 16:30 Glucose (Glutose) 15 gm Q15M PRN PO DECREASED GLUCOSE; Start 09/19/18 at 16:30 Glucose (Glutose) 22.5 gm Q15M PRN PO DECREASED GLUCOSE; Start 09/19/18 at 16:30 Dextrose (D50w Syringe) 25 ml Q15M PRN IV DECREASED GLUCOSE; Start 09/19/18 at 16:30 Dextrose (D50w Syringe) 50 ml Q15M PRN IV DECREASED GLUCOSE; Start 09/19/18 at 16:30 Glucagon (Glucagen) 1 mg Q15M PRN IM DECREASED GLUCOSE; Start 09/19/18 at 16:30 Glucose (Glutose) 15 gm Q15M PRN BUCCAL DECREASED GLUCOSE; Start 09/19/18 at 16:30 Bisacodyl (Dulcolax Supp) 10 mg DAILY PRN [place] CONSTIPATION; Start 09/20/18 at 01:00 Acetaminophen (Tylenol Liquid) 650 mg Q4H PRN PO MILD PAIN(1-3)OR ELEVATED TEMP; Start 09/20/18 at 18:30 Cholecalciferol (Vitamin D) 1,000 unit DAILY PO Last administered on 09/24/18 09:49; Admin Dose 1,000 UNIT; Start 09/21/18 at 09:00 Diphenhydramine HCl (Benadryl Liquid Cup) 25 mg Q4H PRN PO ITCHING; Start 09/20/18 at 18:30 Docusate Sodium (Colace Liquid Cup) 100 mg BID PO Last administered on 09/24/18 09:49; Admin Dose 100 MG; Start 09/20/18 at 21:00 Folic Acid (Folic Acid) 1 mg DAILY PO Last administered on 09/24/18 09:49; Admin Dose 1 MG; Start 09/21/18 at 09:00 Glycopyrrolate (Robinul) 1 mg BID PO Last administered on 09/24/18 09:49; Admin Dose 1 MG; Start 09/20/18 at 21:00 Lansoprazole (Prevacid) 30 mg DAILY@06 PO Last administered on 09/24/18at 06:15; Admin Dose 30 MG; Start 09/21/18 at 06:00 Levothyroxine Sodium (Synthroid) 137 mcg DAILY@06 PO Last administered on 09/24/18at 06:15; Admin Dose 137 MCG; Start 09/21/18 at 06:00 Multivit/Ca Carb/ B Cmplx/FA/Prenat (Daphnie-Nikole) 1 tab DAILY PO Last admini stered on 09/24/18at 10:01; Admin Dose 1 TAB; Start 09/21/18 at 09:00 Prochlorperazine (Compazine) 5 mg Q6H PRN PO NAUSEA AND/OR VOMITING; Start 09/20/18 at 18:30 Propranolol HCl (Inderal) 20 mg TID PO Last administered on 09/22/18at 14:04; Admin Dose 20 MG; Start 09/20/18 at 21:00 Fluconazole (Diflucan) 100 mg DAILY PO Last administered on 09/24/18at 09:49; Admin Dose 100 MG; Start 09/21/18 at 13:00 Assessment/Plan Hospital Course (Demo Recall) IMPRESSION AND PLAN: 1. Status post hypoxemic respiratory failure now with tracheostomy capped. 2. History of atrial fibrillation. 3. History of empyema status post decortication. PLAN: 1. Decannulate tracheostomy 2. Stoma site care 3. Continue physical therapy CAROLINA BENAVIDES MD, [facility] Sep 24, 2018 14:39
--- NOTE | 2018-09-24 19:43 | CONS ---
Consult Date/Type/Reason Admit Date/Time Sep 19, 2018 at 13:50 Initial Consult Date 09/21/18 Type of Consultation: cv Requesting Provider: FARAZ GONGORA DO Date/Time of Note DATE: 09/24/18 TIME: 19:42 Subjective Cardiology follow-up progress Subjective: Discussed with the staff. Discussed with the family. Patient with no chest pain or pressure. He continues to cooperate with physical therapy. Breathing appears to be stabilizing Objective: General: A gentleman in no acute distress HEENT: NC/AT. pupils are equal. round. NECK: Status with previous trach which is. no stridor. CV: Irregularly regular. systolic murmur; no gallop or rubs. PULM: no wheezing or rhonchi. GI: SOFT, NT, ND, no rebound or guarding . Extremity: trace B/L LE edema. no clubbing. neuro: awake and alert, Psych: calm and pleasant rectal: deferred : normal 0 August 2018 which was personally reviewed shows: Normal left ventricular cavity size. Moderate concentric left ventricular hypertrophy. Severe global left ventricular systolic dysfunction. Ejection fraction is visually estimated at 35-40 %. Tissue Doppler/Mitral Doppler indices are indeterminate in this study due to the presence of . Mitral valve leaflets appear mildly thickened. Mild mitral annular calcification. Mild mitral valve regurgitation. No significant aortic stenosis or insufficiency. Aortic cusps appear mildly calcified. Normal appearance of the tricuspid valve. Estimated peak PA systolic pressure 30 mmHg. There is trace tricuspid regurgitation. There is mild enlargement of left atrium. Trivial pericardial effusion. Objective Vitals Vital Signs Date Temp Pulse Resp B/P (MAP) Pulse Ox O2 O2 Flow FiO2 Time Delivery Rate 09/24/18 97.8 96 18 121/86 95 Room Air 14:00 (98) 09/24/18 21 13:33 Intake and Output 09/23/18 09/23/18 09/24/18 1515:00 23:00 07:00 IntakeIntake Total 1200 ml OutputOutput Total 600 ml 350 ml BalanceBalance 600 ml -350 ml Results/Medications Result Diagram: 09/21/18 0709/21/1806 Results 24 hrs Laboratory Tests Test 09/23/18 20:04 09/24/18 07:58 09/24/18 12:07 09/24/18 17:43 Bedside Glucose 153 106 120 151 Home Meds Active Scripts Front Wheel Walker* (Front Wheel Walker*) 1 Each Dme, 1 EACH [facility] DIRECTED, #1 DME 0 Refills Prov:TC ZAMORA. DO 05/28/17 Sodium Polystyrene Sulfonate* (Kayexalate*) 15 Gm/60 Ml Susp, 30 GM PO each day for 2 Days, ML Prov:NOAH,EZEKIELSTOLOS A. DO 05/28/17 Medications Current Medications Senna (Senokot) 1 tab HS PO Last administered on 09/21/18 20:37; Admin Dose 1 TAB; Start 09/19/18 at 21:00 Magnesium Hydroxide (Milk Of Mag) 30 ml BID PRN PO CONSTIPATION; Start 09/19/18 at 14:30 Lactulose (Enulose) 20 gm DAILY PRN PO CONSTIPATION; Start 09/19/18 at 14:30 Miscellaneous Information [facility] This patient jean-baptiste... PRN PRN XX WOUND CARE; Start 09/19/18 at 14:30 Diphenhydramine HCl (Benadryl) 12.5 mg Q4H PRN IV ITCHING; Start 09/19/18 at 14:30 Febuxostat (Uloric) 40 mg DAILY PO Last administered on 09/24/18 09:49; Admin Dose 40 MG; Start 09/20/18 at 09:00 Heparin Sodium (Porcine) (Heparin (5000 Units/1ml)) 5,000 unit BID SC Last administered on 09/24/18 09:49; Admin Dose 5,000 UNIT; Start 09/19/18 at 21:00 Insulin Glargine (Lantus) 20 units DAILY@2000 SC Last administered on 09/23/18 20:07; Admin Dose 20 UNITS; Start 09/19/18 at 20:00 Levalbuterol (Xopenex Neb) 0.63 mg Q6H RESP THERAPY HHN Last administered on 09/24/18 19:40; Admin Dose 0.63 MG; Start 09/19/18 at 20:00 Miconazole Nitrate (Miconazole 2% Cr) 1 applic BID TOP Last administered on 09/24/18 09:59; Admin Dose 1 APPLIC; Start 09/19/18 at 21:00 Nalbuphine HCl (Nubain) 2 mg Q6 PRN IV PRURITUS; Start 09/19/18 at 14:30 Phenol (Chloraseptic Throat [place]) 2 spray Q3 PRN [place] SORE THROAT; Start 09/19/18 at 14:30 Spironolactone (Aldactone) 25 mg DAILY GTB Last administered on 09/20/18at 08:29; Admin Dose 25 MG; Start 09/20/18 at 09:00; Status Hold Tamsulosin HCl (Flomax) 0.4 mg PC BREAKFAST PO Last administered on 09/24/18at 09:50; Admin Dose 0.4 MG; Start 09/20/18 at 08:35 Tobramycin/ Dexamethasone (Tobradex Oph Drop) 1 drop QID BOTH EYES Last administered on 09/24/18at 17:45; Admin Dose 1 DROP; Start 09/19/18 at 17:00 Diagnostic Test (Pha) (Accu-Chek) 1 ea 02 XX ; Start 09/20/18 at 02:00 Insulin Aspart (Novolog Insulin Pen) NOVOLOG *MILD* ALGORITHM WITH MEALS BEDTIME SC Last administered on 09/24/18at 17:47; Admin Dose 1 UNIT; Start 09/19/18 at 17:35 Miscellaneous Information 1 ea NOTE XX ; Start 09/19/18 at 16:30 Glucose (Glutose) 15 gm Q15M PRN PO DECREASED GLUCOSE; Start 09/19/18 at 16:30 Glucose (Glutose) 22.5 gm Q15M PRN PO DECREASED GLUCOSE; Start 09/19/18 at 16:30 Dextrose (D50w Syringe) 25 ml Q15M PRN IV DECREASED GLUCOSE; Start 09/19/18 at 16:30 Dextrose (D50w Syringe) 50 ml Q15M PRN IV DECREASED GLUCOSE; Start 09/19/18 at 16:30 Glucagon (Glucagen) 1 mg Q15M PRN IM DECREASED GLUCOSE; Start 09/19/18 at 16:30 Glucose (Glutose) 15 gm Q15M PRN BUCCAL DECREASED GLUCOSE; Start 09/19/18 at 16:30 Bisacodyl (Dulcolax Supp) 10 mg DAILY PRN [place] CONSTIPATION; Start 09/20/18 at 01:00 Acetaminophen (Tylenol Liquid) 650 mg Q4H PRN PO MILD PAIN(1-3)OR ELEVATED TEMP; Start 09/20/18 at 18:30 Cholecalciferol (Vitamin D) 1,000 unit DAILY PO Last administered on 09/24/18 09:49; Admin Dose 1,000 UNIT; Start 09/21/18 at 09:00 Diphenhydramine HCl (Benadryl Liquid Cup) 25 mg Q4H PRN PO ITCHING; Start 09/20/18 at 18:30 Docusate Sodium (Colace Liquid Cup) 100 mg BID PO Last administered on 09/24/18 09:49; Admin Dose 100 MG; Start 09/20/18 at 21:00 Folic Acid (Folic Acid) 1 mg DAILY PO Last administered on 09/24/18 09:49; Admin Dose 1 MG; Start 09/21/18 at 09:00 Glycopyrrolate (Robinul) 1 mg BID PO Last administered on 09/24/18 09:49; Admin Dose 1 MG; Start 09/20/18 at 21:00 Lansoprazole (Prevacid) 30 mg DAILY@06 PO Last administered on 09/24/18 06:15; Admin Dose 30 MG; Start 09/21/18 at 06:00 Levothyroxine Sodium (Synthroid) 137 mcg DAILY@06 PO Last administered on 09/24/18 06:15; Admin Dose 137 MCG; Start 09/21/18 at 06:00 Multivit/Ca Carb/ B Cmplx/FA/Prenat (Daphnie-Nikole) 1 tab DAILY PO Last administered on 09/24/18 10:01; Admin Dose 1 TAB; Start 09/21/18 at 09:00 Prochlorperazine (Compazine) 5 mg Q6H PRN PO NAUSEA AND/OR VOMITING; Start 09/20/18 at 18:30 Propranolol HCl (Inderal) 20 mg TID PO Last administered on 09/22/18 14:04; Admin Dose 20 MG; Start 09/20/18 at 21:00 Fluconazole (Diflucan) 100 mg DAILY PO Last administered on 09/24/18 09:49; Admin Dose 100 MG; Start 09/21/18 at 13:00 Assessment/Plan Hospital Course (Demo Recall) 1. Atrial fibrillation: Heart rate controlled. Unable to fully anticoagulated due to concern about the anemia and OB positive stool 2. Congestive heart failure/cardiomyopathy: Chronic secondary systolic heart failure and stable now 3. Status post hypoxemic respiratory failure and tracheostomy: Currently trach is capped 4. Anemia and OB positive stool 5. Debility 6. This was empyema/pneumonia 7. dysphasia status post PEG placement 8. Renal insufficiency Recommendation: Continue with the propranolol for heart rate and blood pressure control Respiratory care as needed. Nutritional support to be continued Currently patient off of anticoagulation due to concern about the severe anemia and GI bleeding cont With physical therapy and rehab Renal management as per Dr. Gongora and associate Thank you for his referral. We will continue to follow along with MARCO A NAJERA MD [facility] MARCO A NAJERA MD Sep 24, 2018 19:43
[2018-09-24 20:00] VITALS: BP 104/62; PULSE 61; RESP 18
--- NOTE | 2018-09-24 20:10 | CONS ---
DATE OF ADMISSION: 09/19/2018 DATE OF CONSULTATION: TYPE OF CONSULTATION: Gastroenterology. REASON FOR CONSULTATION: Removal of G-tube. HISTORY OF PRESENT ILLNESS: The patient is an 83-year-old male with a history of atrial fibrillation , hypertension, diabetes mellitus, chronic kidney disease, was originally admitted to [facility] for severe weakness. The patient was found to have empyema and was started on antibiotic, bronc hodilator. They did a thoracocentesis and after that, the patient had a pneumothorax as per the fami ly member requiring intubation. The patient required also thoracotomy and it was complicated with bl eeding. He had a prolonged stay in the hospital, requiring trach and PEG. Subsequently, the patient got transferred to [facility] where he got stabilized and was eventually weaned off the vent, h ad a tract capped and transferred to rehab for further management. He also developed a critical care myopathy. GI consult was called in for the removal of the G-tube. The patient was eating 100%. Th is was verified with the 3 family members who were by the side of the patient. No abdominal pain, no nausea, no vomiting, no chest pain, no shortness of breath. PAST MEDICAL HISTORY: Diabetes mellitus, hypertension, atrial fibrillation, chronic kidney disease. FAMILY HISTORY: Nothing contributory. SOCIAL HISTORY: Does not smoke or drink. No recreational drugs. ALLERGIES: NONE. REVIEW OF SYSTEMS: A 14-point review of system was negative. PHYSICAL EXAMINATION: GENERAL: Alert, awake, not in distress. VITAL SIGNS: Stable. HEENT: Unremarkable. NECK: Supple. No thyromegaly. He is decannulated. ABDOMEN: Benign. G-tube is in place. LUNGS: Clear. EXTREMITIES: No edema. CENTRAL NERVOUS SYSTEMS: Grossly within normal limit. IMPRESSION: 1. Respiratory failure, status post tracheostomy, he is decannulated. 2. Critical care myopathy. 3. Diabetes mellitus. 4. Hypertension. 5. Anemia. 6. Atrial fibrillation. 7. Hypothyroidism. 8. Benign prostatic hypertrophy. 9. Dysphagia, which is totally resolved. PLAN: To remove the G-tube. I discussed with the family member and the patient consented for it and the procedure was done bedside. The G-tube was removed by traction method. There was no bleeding a nd the patient tolerated the procedure very well. Continue bathing with soap and water. Thank you again for allowing me to participate in taking care of your patient. Dictated By: AMADA KATHLEEN/PAPA Conf#: [id number] DID#: [id number] CC: JESUS CHAMBERS MD; CAROLINA BENAVIDES MD; CHARLENE LYMAN DO; FARAZ GONGORA DO;*EndCC*
[2018-09-24] MEDS: INSULIN GLARGINE [LANTus] (100 UNITS/ML) SYG SC SCH (20:51)
[2018-09-24] MEDS: SENNA TAB PO SCH (21:06)
[2018-09-25] MEDS: LEVALBUTEROL (NEB) 0.63 MG/3 ML AMP HHN SCH ×4 (01:56→20:15)
[2018-09-25] MEDS: ACCU-CHEK XX SCH (02:00)
[2018-09-25 02:23] VITALS: BP 111/67; PULSE 58; RESP 18
[2018-09-25] MEDS: LEVOTHYROXINE 137 MCG TAB PO SCH (06:02)
[2018-09-25] MEDS: LANSOPRAZOLE 30 MG CAP PO SCH (06:02)
[2018-09-25 07:30] VITALS: BP 94/57; PULSE 91; RESP 20
[2018-09-25] MEDS: INSULIN ASPART [NOVOLOG] 3 ML PEN SC SCH ×4 (07:35→21:42)
--- NOTE | 2018-09-25 07:59 | CONS ---
Assessment/Plan Assessment/Plan Hospital Course (Demo Recall) 83 yo male Interval hx: Tolerating regular diet, no bm since 09/23. 1. Respiratory failure, status post tracheostomy, he is decannulated. 2. Critical care myopathy. 3. Diabetes mellitus. 4. Hypertension. 5. Anemia. 6. Atrial fibrillation. 7. Hypothyroidism. 8. Benign prostatic hypertrophy. 9. Dysphagia, which is totally resolved. PLAN: Continue with diet as tolerated. Utilize prn medications to promote bm. Pt examined and plan of care discussed with Dr. Alvarado Consultation Date/Type/Reason Admit Date/Time Sep 19, 2018 at 13:50 Initial Consult Date 09/21/18 Requesting Provider: FARAZ GONGORA DO Date/Time of Note DATE: 09/25/18 TIME: 07:58 Exam/Review of Systems Exam Vitals Vital Signs Date Temp Pulse Resp B/P (MAP) Pulse Ox O2 O2 Flow FiO2 Time Delivery Rate 09/25/18 82 20 94 21 07:36 09/25/18 97.8 94/57 (69) Room Air 07:30 Intake and Output 09/24/18 09/24/18 09/25/18 1515:00 23:00 07:00 IntakeIntake Total 1200 ml 240 ml OutputOutput Total 600 ml 600 ml BalanceBalance 600 ml -360 ml Constitutional: alert, oriented Psych: no complaints Head: normocephalic Respiratory: clear to auscultation Cardiovascular: regular rate and rhythm Gastrointestinal: soft, non-tender Musculoskeletal: nl extremities to inspection, muscle weakness Neurological: nl mental status Results Result Diagram: 09/25/18 0634 09/21/18 0706 Results 24hrs Laboratory Tests Test 09/24/18 12:07 09/24/18 17:43 09/24/18 20:41 09/25/18 02:05 Bedside Glucose 120 151 211 111 Test 09/25/18 06:34 White Blood Count 7.2 Red Blood Count 3.45 L Hemoglobin 10.1 L Hematocrit 32.1 L Mean Corpuscular Volume 93.0 Mean Corpuscular 29.3 Hemoglobin Mean Corpuscular 31.5 L Hemoglobin Concent Red Cell Distribution 16.4 H Width Platelet Count 148 # Mean Platelet Volume 10.9 H Immature Granulocytes % 4.000 H Neutrophils % 60.0 Lymphocytes % 20.6 Monocytes % 13.4 H Eosinophils % 1.3 Basophils % 0.7 Nucleated Red Blood 0.0 Cells % Immature Granulocytes # 0.290 H Neutrophils # 4.3 Lymphocytes # 1.5 Monocytes # 1.0 H Eosinophils # 0.1 Basophils # 0.1 Nucleated Red Blood 0.0 Cells # Medications Medication Current Medications Senna (Senokot) 1 tab HS PO Last administered on 09/24/18 21:06; Admin Dose 1 TAB; Start 09/19/18 at 21:00 Magnesium Hydroxide (Milk Of Mag) 30 ml BID PRN PO CONSTIPATION; Start 09/19/18 at 14:30 Lactulose (Enulose) 20 gm DAILY PRN PO CONSTIPATION; Start 09/19/18 at 14:30 Miscellaneous Information (Pending [facility] Order For Wound Care) This patient jean-baptiste... PRN PRN XX WOUND CARE; Start 09/19/18 at 14:30 Diphenhydramine HCl (Benadryl) 12.5 mg Q4H PRN IV ITCHING; Start 09/19/18 at 14:30 Febuxostat (Uloric) 40 mg DAILY PO Last administered on 09/24/18 09:49; Admin Dose 40 MG; Start 09/20/18 at 09:00 Heparin Sodium (Porcine) (Heparin (5000 Units/1ml)) 5,000 unit BID SC Last administered on 09/24/18 20:54; Admin Dose 5,000 UNIT; Start 09/19/18 at 21:00 Insulin Glargine (Lantus) 20 units DAILY@2000 SC Last administered on 09/24/18 20:51; Admin Dose 20 UNITS; Start 09/19/18 at 20:00 Levalbuterol (Xopenex Neb) 0.63 mg Q6H RESP THERAPY HHN Last administered on 09/25/18 07:35; Admin Dose 0.63 MG; Start 09/19/18 at 20:00 Miconazole Nitrate (Miconazole 2% Cr) 1 applic BID TOP Last administered on 09/24/18 20:58; Admin Dose 1 APPLIC; Start 09/19/18 at 21:00 Nalbuphine HCl (Nubain) 2 mg Q6 PRN IV PRURITUS; Start 09/19/18 at 14:30 Phenol (Chloraseptic Throat [place]) 2 spray Q3 PRN [place] SORE THROAT; Start 09/19/18 at 14:30 Spironolactone (Aldactone) 25 mg DAILY GTB Last administered on 09/20/18at 08:29; Admin Dose 25 MG; Start 09/20/18 at 09:00; Status Hold Tamsulosin HCl (Flomax) 0.4 mg PC BREAKFAST PO Last administered on 09/24/18at 09:50; Admin Dose 0.4 MG; Start 09/20/18 at 08:35 Tobramycin/ Dexamethasone (Tobradex Oph Drop) 1 drop QID BOTH EYES Last administered on 09/24/18at 20:49; Admin Dose 1 DROP; Start 09/19/18 at 17:00 Diagnostic Test (Pha) (Accu-Chek) 1 ea 02 XX ; Start 09/20/18 at 02:00 Insulin Aspart (Novolog Insulin Pen) NOVOLOG *MILD* ALGORITHM WITH MEALS BEDTIME SC Last administered on 09/24/18at 20:53; Admin Dose 1 UNIT; Start 09/19/18 at 17:35 Miscellaneous Information 1 ea NOTE XX ; Start 09/19/18 at 16:30 Glucose (Glutose) 15 gm Q15M PRN PO DECREASED GLUCOSE; Start 09/19/18 at 16:30 Glucose (Glutose) 22.5 gm Q15M PRN PO DECREASED GLUCOSE; Start 09/19/18 at 16:30 Dextrose (D50w Syringe) 25 ml Q15M PRN IV DECREASED GLUCOSE; Start 09/19/18 at 16:30 Dextrose (D50w Syringe) 50 ml Q15M PRN IV DECREASED GLUCOSE; Start 09/19/18 at 16:30 Glucagon (Glucagen) 1 mg Q15M PRN IM DECREASED GLUCOSE; Start 09/19/18 at 16:30 Glucose (Glutose) 15 gm Q15M PRN BUCCAL DECREASED GLUCOSE; Start 09/19/18 at 16:30 Bisacodyl (Dulcolax Supp) 10 mg DAILY PRN [place] CONSTIPATION; Start 09/20/18 at 01:00 Acetaminophen (Tylenol Liquid) 650 mg Q4H PRN PO MILD PAIN(1-3)OR ELEVATED TEMP; Start 09/20/18 at 18:30 Cholecalciferol (Vitamin D) 1,000 unit DAILY PO Last administered on 09/24/18at 09:49; Admin Dose 1,000 UNIT; Start 09/21/18 at 09:00 Diphenhydramine HCl (Benadryl Liquid Cup) 25 mg Q4H PRN PO ITCHING; Start 09/20/18 at 18:30 Docusate Sodium (Colace Liquid Cup) 100 mg BID PO Last administered on 09/24/18 20:43; Admin Dose 100 MG; Start 09/20/18 at 21:00 Folic Acid (Folic Acid) 1 mg DAILY PO Last administered on 09/24/18 09:49; Admin Dose 1 MG; Start 09/21/18 at 09:00 Glycopyrrolate (Robinul) 1 mg BID PO Last administered on 09/24/18 21:06; Admin Dose 1 MG; Start 09/20/18 at 21:00 Lansoprazole (Prevacid) 30 mg DAILY@06 PO Last administered on 09/25/18 06:02; Admin Dose 30 MG; Start 09/21/18 at 06:00 Levothyroxine Sodium (Synthroid) 137 mcg DAILY@06 PO Last administered on 09/25/18 06:02; Admin Dose 137 MCG; Start 09/21/18 at 06:00 Multivit/Ca Carb/ B Cmplx/FA/Prenat (Daphnie-Nikole) 1 tab DAILY PO Last administered on 09/24/18 10:01; Admin Dose 1 TAB; Start 09/21/18 at 09:00 Prochlorperazine (Compazine) 5 mg Q6H PRN PO NAUSEA AND/OR VOMITING; Start 09/20/18 at 18:30 Propranolol HCl (Inderal) 20 mg TID PO Last administered on 09/24/18 20:49; Admin Dose 20 MG; Start 09/20/18 at 21:00 Fluconazole (Diflucan) 100 mg DAILY PO Last administered on 09/24/18 09:49; Admin Dose 100 MG; Start 09/21/18 at 13:00 PINKY STALLINGS Sep 25, 2018 07:59
[2018-09-25] MEDS: GLYCOPYRROLATE 1 MG TAB PO SCH ×2 (08:46→21:36)
[2018-09-25] MEDS: TAMSULOSIN (SR) 0.4 MG CAP PO SCH (08:46)
[2018-09-25] MEDS: FOLIC ACID 1 MG TAB PO SCH (08:46)
[2018-09-25] MEDS: FEBUXOSTAT 40 MG TABLET PO SCH (08:47)
[2018-09-25] MEDS: DOCUSATE SODIUM 10 MG/ML (10ML CUP) PO SCH ×2 (08:47→21:38)
[2018-09-25] MEDS: FLUCONAZOLE 100 MG TAB PO SCH (08:47)
[2018-09-25] MEDS: TOBRAMYCIN/DEXAMETH 2.5 ML OPH BOTH EYES SCH ×4 (08:47→21:36)
[2018-09-25] MEDS: MULTIVIT/CA CARB/B CMPLX/FA TAB PO SCH (08:47)
[2018-09-25] MEDS: CHOLECALCIFEROL 1,000 UNIT TAB PO SCH (08:47)
[2018-09-25] MEDS: PROPRANOLOL 20 MG TAB PO SCH ×3 (08:47→21:38)
[2018-09-25] MEDS: MICONAZOLE 2% 30 GM CR TOP SCH ×2 (08:57→21:44)
[2018-09-25] MEDS: HEPARIN 5,000 UNIT/1 ML VIAL SC SCH ×2 (08:57→21:43)
--- NOTE | 2018-09-25 09:40 | PN ---
DATE: 09/25/2018 SUBJECTIVE: The patient is stable, no events overnight. OBJECTIVE: VITAL SIGNS: Blood pressure is 94/57, respirations 20, pulse 91, temperature 97.8. HEENT: Head is normocephalic. NECK: Supple. HEART: Regular rate. LUNGS: Show diminished breath sounds at the base. ABDOMEN: Soft, nontender to palpation without rebound or guarding. EXTREMITIES: Negative for clubbing, cyanosis, no edema. DERMATOLOGIC: No rashes. MUSCULOSKELETAL: No joint effusion. NEUROLOGIC: No change in exam. MEDICATIONS: Reviewed. LABORATORY DATA: From 09/25/2018 was reviewed. ASSESSMENT AND PLAN: 1. Chronic respiratory failure. The patient is status post decannulation. Continue to monitor. 2. Dysphagia. The patient is status post PEG removal yesterday, tolerating p.o. well. Continue to monitor. 3. Chronic kidney disease stage IIIB/IV. Renal function is stable. Continue current treatment plan s, supportive care, renally dose all medicines. 4. Mild hyperkalemia, resolved. 5. Anemia. Continue to monitor hemoglobin and hematocrit levels. We will give Epogen as needed. 6. Mineral bone disorder, monitor calcium and phosphorus levels. 7. Diabetes. Continue current insulin regimen. 8. Atrial fibrillation, currently in sinus rhythm. Continue to monitor. 9. Hypothyroidism. Continue Synthroid. 10. Benign prostatic hypertrophy. Continue Uloric. 11. Constipation. Continue current bowel regimen. 12. Hypertension. Continue current blood pressure regimen. Dictated By: FARAZ GONGORA DO NR/NTS Conf#: [id number] DID#: [id number] CC: JESUS CHAMBERS MD; CAROLINA BENAVIDES MD; CHARLENE LYMAN DO;*EndCC*
--- NOTE | 2018-09-25 13:52 | CONS ---
Consult Date/Type/Reason Admit Date/Time Sep 19, 2018 at 13:50 Initial Consult Date 09/21/18 Type of Consult Pulmonary Requesting Provider: FARAZ GONGORA DO Date/Time of Note DATE: 09/25/18 TIME: 13:51 Subjective remains stable post decannulation and removal of g tube Objective Vital Signs Date Temp Pulse Resp B/P (MAP) Pulse Ox O2 O2 Flow FiO2 Time Delivery Rate 09/25/18 82 20 94 21 07:36 09/25/18 97.8 94/57 (69) Room Air 07:30 Intake and Output 09/24/18 09/24/18 09/25/18 1515:00 23:00 07:00 IntakeIntake Total 1200 ml 240 ml OutputOutput Total 600 ml 600 ml BalanceBalance 600 ml -360 ml Vent Setting Fraction of Inspired Oxygen pe: 21 Results/Medications Result Diagram: 09/25/18 0634 09/25/18 0634 Results 24 hrs Laboratory Tests Test 09/24/18 17:43 09/24/18 20:41 09/25/18 02:05 09/25/18 06:34 Bedside Glucose 151 211 111 White Blood Count 7.2 Red Blood Count 3.45 L Hemoglobin 10.1 L Hematocrit 32.1 L Mean Corpuscular Volume 93.0 Mean Corpuscular 29.3 Hemoglobin Mean Corpuscular 31.5 L Hemoglobin Concent Red Cell Distribution 16.4 H Width Platelet Count 148 # Mean Platelet Volume 10.9 H Immature Granulocytes % 4.000 H Neutrophils % 60.0 Lymphocytes % 20.6 Monocytes % 13.4 H Eosinophils % 1.3 Basophils % 0.7 Nucleated Red Blood 0.0 Cells % Immature Granulocytes # 0.290 H Neutrophils # 4.3 Lymphocytes # 1.5 Monocytes # 1.0 H Eosinophils # 0.1 Basophils # 0.1 Nucleated Red Blood 0.0 Cells # Sodium Level 139 Potassium Level 5.0 Chloride Level 106 Carbon Dioxide Level 24 Anion Gap 9 Blood Urea Nitrogen 82 H Creatinine 1.41 H Est Glomerular Filtrat Rate mL/min Glucose Level 106 Calcium Level 9.6 Phosphorus Level 4.8 Magnesium Level 1.9 Test 09/25/18 07:58 09/25/18 11:46 Bedside Glucose 105 139 Medications Current Medications Senna (Senokot) 1 tab HS PO Last administered on 09/24/18at 21:06; Admin Dose 1 TAB; Start 09/19/18 at 21:00 Magnesium Hydroxide (Milk Of Mag) 30 ml BID PRN PO CONSTIPATION; Start 09/19/18 at 14:30 Lactulose (Enulose) 20 gm DAILY PRN PO CONSTIPATION; Start 09/19/18 at 14:30 Miscellaneous Information (Pending [facility] Order For Wound Care) This patient jean-baptiste... PRN PRN XX WOUND CARE; Start 09/19/18 at 14:30 Diphenhydramine HCl (Benadryl) 12.5 mg Q4H PRN IV ITCHING; Start 09/19/18 at 14:30 Febuxostat (Uloric) 40 mg DAILY PO Last administered on 09/25/18 08:47; Admin Dose 40 MG; Start 09/20/18 at 09:00 Heparin Sodium (Porcine) (Heparin (5000 Units/1ml)) 5,000 unit BID SC Last administered on 09/25/18 08:57; Admin Dose 5,000 UNIT; Start 09/19/18 at 21:00 Insulin Glargine (Lantus) 20 units DAILY@2000 SC Last administered on 09/24/18 20:51; Admin Dose 20 UNITS; Start 09/19/18 at 20:00 Levalbuterol (Xopenex Neb) 0.63 mg Q6H RESP THERAPY HHN Last administered on 09/25/18 07:35; Admin Dose 0.63 MG; Start 09/19/18 at 20:00 Miconazole Nitrate (Miconazole 2% Cr) 1 applic BID TOP Last administered on 09/25/18 08:57; Admin Dose 1 APPLIC; Start 09/19/18 at 21:00 Nalbuphine HCl (Nubain) 2 mg Q6 PRN IV PRURITUS; Start 09/19/18 at 14:30 Phenol (Chloraseptic Throat [place]) 2 spray Q3 PRN MT SORE THROAT; Start 09/19/18 at 14:30 Spironolactone (Aldactone) 25 mg DAILY GTB Last administered on 09/20/18 08:29; Admin Dose 25 MG; Start 09/20/18 at 09:00; Status Hold Tamsulosin HCl (Flomax) 0.4 mg PC BREAKFAST PO Last administered on 09/25/18 08:46; Admin Dose 0.4 MG; Start 09/20/18 at 08:35 Tobramycin/ Dexamethasone (Tobradex Oph Drop) 1 drop QID BOTH EYES Last administered on 09/25/18at 13:15; Admin Dose 1 DROP; Start 09/19/18 at 17:00 Diagnostic Test (Pha) (Accu-Chek) 1 ea 02 XX ; Start 09/20/18 at 02:00 Insulin Aspart (Novolog Insulin Pen) NOVOLOG *MILD* ALGORITHM WITH MEALS BEDTIME SC Last administered on 09/24/18at 20:53; Admin Dose 1 UNIT; Start 09/19/18 at 17:35 Miscellaneous Information 1 ea NOTE XX ; Start 09/19/18 at 16:30 Glucose (Glutose) 15 gm Q15M PRN PO DECREASED GLUCOSE; Start 09/19/18 at 16:30 Glucose (Glutose) 22.5 gm Q15M PRN PO DECREASED GLUCOSE; Start 09/19/18 at 16:30 Dextrose (D50w Syringe) 25 ml Q15M PRN IV DECREASED GLUCOSE; Start 09/19/18 at 16:30 Dextrose (D50w Syringe) 50 ml Q15M PRN IV DECREASED GLUCOSE; Start 09/19/18 at 16:30 Glucagon (Glucagen) 1 mg Q15M PRN IM DECREASED GLUCOSE; Start 09/19/18 at 16:30 Glucose (Glutose) 15 gm Q15M PRN BUCCAL DECREASED GLUCOSE; Start 09/19/18 at 16:30 Bisacodyl (Dulcolax Supp) 10 mg DAILY PRN [place] CONSTIPATION; Start 09/20/18 at 01:00 Acetaminophen (Tylenol Liquid) 650 mg Q4H PRN PO MILD PAIN(1-3)OR ELEVATED TEMP; Start 09/20/18 at 18:30 Cholecalciferol (Vitamin D) 1,000 unit DAILY PO Last administered on 09/25/18at 08:47; Admin Dose 1,000 UNIT; Start 09/21/18 at 09:00 Diphenhydramine HCl (Benadryl Liquid Cup) 25 mg Q4H PRN PO ITCHING; Start 09/20/18 at 18:30 Docusate Sodium (Colace Liquid Cup) 100 mg BID PO Last administered on 09/25/18at 08:47; Admin Dose 100 MG; Start 09/20/18 at 21:00 Folic Acid (Folic Acid) 1 mg DAILY PO Last administered on 09/25/18 08:46; Admin Dose 1 MG; Start 09/21/18 at 09:00 Glycopyrrolate (Robinul) 1 mg BID PO Last administered on 09/25/18 08:46; Admin Dose 1 MG; Start 09/20/18 at 21:00 Lansoprazole (Prevacid) 30 mg DAILY@06 PO Last administered on 09/25/18 06:02; Admin Dose 30 MG; Start 09/21/18 at 06:00 Levothyroxine Sodium (Synthroid) 137 mcg DAILY@06 PO Last administered on 09/25/18 06:02; Admin Dose 137 MCG; Start 09/21/18 at 06:00 Multivit/Ca Carb/ B Cmplx/FA/Prenat (Daphnie-Nikole) 1 tab DAILY PO Last administered on 09/25/18 08:47; Admin Dose 1 TAB; Start 09/21/18 at 09:00 Prochlorperazine (Compazine) 5 mg Q6H PRN PO NAUSEA AND/OR VOMITING; Start 09/20/18 at 18:30 Propranolol HCl (Inderal) 20 mg TID PO Last administered on 09/25/18 08:47; Admin Dose 20 MG; Start 09/20/18 at 21:00 Fluconazole (Diflucan) 100 mg DAILY PO Last administered on 09/25/18 08:47; Admin Dose 100 MG; Start 09/21/18 at 13:00 Assessment/Plan Hospital Course (Demo Recall) IMPRESSION AND PLAN: 1. Status post hypoxemic respiratory failure decannulated, stoma healing. 2. History of atrial fibrillation. 3. History of empyema status post decortication. PLAN: 1. Stoma site care 2. Continue physical therapy CAROLINA BENAVIDES MD, [facility] Sep 25, 2018 13:52
[2018-09-25 14:00] VITALS: BP 129/68; PULSE 89; RESP 20
--- NOTE | 2018-09-25 14:27 | PN ---
Date/Time of Note Date/Time of Note DATE: 09/25/18 TIME: 14:25 Subjective Comfortable Objective Vital Signs Date Temp Pulse Resp B/P (MAP) Pulse Ox O2 O2 Flow FiO2 Time Delivery Rate 09/25/18 85 18 94 21 14:11 09/25/18 97.8 94/57 (69) Room Air 07:30 Intake and Output 09/24/18 09/24/18 09/25/18 1515:00 23:00 07:00 IntakeIntake Total 1200 ml 240 ml OutputOutput Total 600 ml 600 ml BalanceBalance 600 ml -360 ml Exam pulm-cta min assist ambulation Results/Medications Result Diagram: 09/25/18 0634 09/25/18 0634 Results 24 hrs Laboratory Tests Test 09/24/18 17:43 09/24/18 20:41 09/25/18 02:05 09/25/18 06:34 Bedside Glucose 151 211 111 White Blood Count 7.2 Red Blood Count 3.45 L Hemoglobin 10.1 L Hematocrit 32.1 L Mean Corpuscular Volume 93.0 Mean Corpuscular 29.3 Hemoglobin Mean Corpuscular 31.5 L Hemoglobin Concent Red Cell Distribution 16.4 H Width Platelet Count 148 # Mean Platelet Volume 10.9 H Immature Granulocytes % 4.000 H Neutrophils % 60.0 Lymphocytes % 20.6 Monocytes % 13.4 H Eosinophils % 1.3 Basophils % 0.7 Nucleated Red Blood 0.0 Cells % Immature Granulocytes # 0.290 H Neutrophils # 4.3 Lymphocytes # 1.5 Monocytes # 1.0 H Eosinophils # 0.1 Basophils # 0.1 Nucleated Red Blood 0.0 Cells # Sodium Level 139 Potassium Level 5.0 Chloride Level 106 Carbon Dioxide Level 24 Anion Gap 9 Blood Urea Nitrogen 82 H Creatinine 1.41 H Est Glomerular Filtrat Rate mL/min Glucose Level 106 Calcium Level 9.6 Phosphorus Level 4.8 Magnesium Level 1.9 Test 09/25/18 07:58 09/25/18 11:46 Bedside Glucose 105 139 Medications Current Medications Senna (Senokot) 1 tab HS PO Last administered on 09/24/18at 21:06; Admin Dose 1 TAB; Start 09/19/18 at 21:00 Magnesium Hydroxide (Milk Of Mag) 30 ml BID PRN PO CONSTIPATION; Start 09/19/18 at 14:30 Lactulose (Enulose) 20 gm DAILY PRN PO CONSTIPATION; Start 09/19/18 at 14:30 Miscellaneous Information [facility] This patient jean-baptiste... PRN PRN XX WOUND CARE; Start 09/19/18 at 14:30 Diphenhydramine HCl (Benadryl) 12.5 mg Q4H PRN IV ITCHING; Start 09/19/18 at 14:30 Febuxostat (Uloric) 40 mg DAILY PO Last administered on 09/25/18 08:47; Admin Dose 40 MG; Start 09/20/18 at 09:00 Heparin Sodium (Porcine) (Heparin (5000 Units/1ml)) 5,000 unit BID SC Last administered on 09/25/18 08:57; Admin Dose 5,000 UNIT; Start 09/19/18 at 21:00 Insulin Glargine (Lantus) 20 units DAILY@2000 SC Last administered on 09/24/18 20:51; Admin Dose 20 UNITS; Start 09/19/18 at 20:00 Levalbuterol (Xopenex Neb) 0.63 mg Q6H RESP THERAPY HHN Last administered on 09/25/18 14:11; Admin Dose 0.63 MG; Start 09/19/18 at 20:00 Miconazole Nitrate (Miconazole 2% Cr) 1 applic BID TOP Last administered on 09/25/18 08:57; Admin Dose 1 APPLIC; Start 09/19/18 at 21:00 Nalbuphine HCl (Nubain) 2 mg Q6 PRN IV PRURITUS; Start 09/19/18 at 14:30 Phenol (Chloraseptic Throat [place]) 2 spray Q3 PRN MT SORE THROAT; Start 09/19/18 at 14:30 Spironolactone (Aldactone) 25 mg DAILY GTB Last administered on 09/20/18 08:29; Admin Dose 25 MG; Start 09/20/18 at 09:00; Status Hold Tamsulosin HCl (Flomax) 0.4 mg PC BREAKFAST PO Last administered on 09/25/18 08:46; Admin Dose 0.4 MG; Start 09/20/18 at 08:35 Tobramycin/ Dexamethasone (Tobradex Oph Drop) 1 drop QID BOTH EYES Last administered on 09/25/18 13:15; Admin Dose 1 DROP; Start 09/19/18 at 17:00 Diagnostic Test (Pha) (Accu-Chek) 1 ea 02 XX ; Start 09/20/18 at 02:00 Insulin Aspart (Novolog Insulin Pen) NOVOLOG *MILD* ALGORITHM WITH MEALS BEDTIME SC Last administered on 09/24/18at 20:53; Admin Dose 1 UNIT; Start 09/19/18 at 17:35 Miscellaneous Information 1 ea NOTE XX ; Start 09/19/18 at 16:30 Glucose (Glutose) 15 gm Q15M PRN PO DECREASED GLUCOSE; Start 09/19/18 at 16:30 Glucose (Glutose) 22.5 gm Q15M PRN PO DECREASED GLUCOSE; Start 09/19/18 at 16:30 Dextrose (D50w Syringe) 25 ml Q15M PRN IV DECREASED GLUCOSE; Start 09/19/18 at 16:30 Dextrose (D50w Syringe) 50 ml Q15M PRN IV DECREASED GLUCOSE; Start 09/19/18 at 16:30 Glucagon (Glucagen) 1 mg Q15M PRN IM DECREASED GLUCOSE; Start 09/19/18 at 16:30 Glucose (Glutose) 15 gm Q15M PRN BUCCAL DECREASED GLUCOSE; Start 09/19/18 at 16:30 Bisacodyl (Dulcolax Supp) 10 mg DAILY PRN [place] CONSTIPATION; Start 09/20/18 at 01:00 Acetaminophen (Tylenol Liquid) 650 mg Q4H PRN PO MILD PAIN(1-3)OR ELEVATED TEMP; Start 09/20/18 at 18:30 Cholecalciferol (Vitamin D) 1,000 unit DAILY PO Last administered on 09/25/18at 08:47; Admin Dose 1,000 UNIT; Start 09/21/18 at 09:00 Diphenhydramine HCl (Benadryl Liquid Cup) 25 mg Q4H PRN PO ITCHING; Start 09/20/18 at 18:30 Docusate Sodium (Colace Liquid Cup) 100 mg BID PO Last administered on 09/25/18at 08:47; Admin Dose 100 MG; Start 09/20/18 at 21:00 Folic Acid (Folic Acid) 1 mg DAILY PO Last administered on 09/25/18at 08:46; Admin Dose 1 MG; Start 09/21/18 at 09:00 Glycopyrrolate (Robinul) 1 mg BID PO Last administered on 09/25/18 08:46; Admin Dose 1 MG; Start 09/20/18 at 21:00 Lansoprazole (Prevacid) 30 mg DAILY@06 PO Last administered on 09/25/18 06:02; Admin Dose 30 MG; Start 09/21/18 at 06:00 Levothyroxine Sodium (Synthroid) 137 mcg DAILY@06 PO Last administered on 09/25/18 06:02; Admin Dose 137 MCG; Start 09/21/18 at 06:00 Multivit/Ca Carb/ B Cmplx/FA/Prenat (Daphnie-Nikole) 1 tab DAILY PO Last administered on 09/25/18 08:47; Admin Dose 1 TAB; Start 09/21/18 at 09:00 Prochlorperazine (Compazine) 5 mg Q6H PRN PO NAUSEA AND/OR VOMITING; Start 09/20/18 at 18:30 Propranolol HCl (Inderal) 20 mg TID PO Last administered on 09/25/18 08:47; Admin Dose 20 MG; Start 09/20/18 at 21:00 Fluconazole (Diflucan) 100 mg DAILY PO Last administered on 09/25/18 08:47; Admin Dose 100 MG; Start 09/21/18 at 13:00 Assessment/Plan Additional Assessment/Plan Rehab- Critical illness myopathy; debility - S/p acute respiratory failure Progressing with rehab Pulm- s/p resp failure, right empyema and thoracotomy with decortication, COPD and tracheostomy- s/p decannulation doing well Chronic atrial fibrillation. Chronic kidney disease. Anemia. BPH. Hypertension. Diabetes mellitus. Impairments in hearing. JESUS CHAMBERS MD Sep 25, 2018 14:27
--- NOTE | 2018-09-25 17:44 | CONS ---
Consult Date/Type/Reason Admit Date/Time Sep 19, 2018 at 13:50 Initial Consult Date 09/21/18 Type of Consultation: cv Requesting Provider: FARAZ LINDSEY DO Date/Time of Note DATE: 09/25/18 TIME: 17:43 Subjective Cardiology follow-up progress Subjective: Discussed with the staff. Discussed with SON Patient with no chest pain or pressure. He continues to cooperate with physical therapy. Breathing appears to be stabilizing Objective: General: Elderly gentleman in no acute distress HEENT: NC/AT. pupils are equal. round. NECK: Status with previous trach which is closed. no stridor. CV: Irregularly regular. systolic murmur; no gallop or rubs. PULM: no wheezing or rhonchi. GI: SOFT, NT, ND, no rebound or guarding . Extremity: trace B/L LE edema. no clubbing. neuro: awake and alert, Psych: calm and pleasant rectal: deferred : normal 0 August 2018 which was personally reviewed shows: Normal left ventricular cavity size. Moderate concentric left ventricular hypertrophy. Severe global left ventricular systolic dysfunction. Ejection fraction is visually estimated at 35-40 %. Tissue Doppler/Mitral Doppler indices are indeterminate in this study due to the presence of . Mitral valve leaflets appear mildly thickened. Mild mitral annular calcification. Mild mitral valve regurgitation. No significant aortic stenosis or insufficiency. Aortic cusps appear mildly calcified. Normal appearance of the tricuspid valve. Estimated peak PA systolic pressure 30 mmHg. There is trace tricuspid regurgitation. There is mild enlargement of left atrium. Trivial pericardial effusion. Objective Vitals Vital Signs Date Temp Pulse Resp B/P (MAP) Pulse Ox O2 O2 Flow FiO2 Time Delivery Rate 09/25/18 85 18 94 21 14:11 09/25/18 97.9 129/68 Room Air 14:00 (88) Intake and Output 09/24/18 09/24/18 09/25/18 1515:00 23:00 07:00 IntakeIntake Total 1200 ml 240 ml OutputOutput Total 600 ml 600 ml BalanceBalance 600 ml -360 ml Results/Medications Result Diagram: 09/25/18 0634 09/25/18 0634 Results 24 hrs Laboratory Tests Test 09/24/18 20:41 09/25/18 02:05 09/25/18 06:34 09/25/18 07:58 Bedside Glucose 211 111 105 White Blood Count 7.2 Red Blood Count 3.45 L Hemoglobin 10.1 L Hematocrit 32.1 L Mean Corpuscular Volume 93.0 Mean Corpuscular 29.3 Hemoglobin Mean Corpuscular 31.5 L Hemoglobin Concent Red Cell Distribution 16.4 H Width Platelet Count 148 # Mean Platelet Volume 10.9 H Immature Granulocytes % 4.000 H Neutrophils % 60.0 Lymphocytes % 20.6 Monocytes % 13.4 H Eosinophils % 1.3 Basophils % 0.7 Nucleated Red Blood 0.0 Cells % Immature Granulocytes # 0.290 H Neutrophils # 4.3 Lymphocytes # 1.5 Monocytes # 1.0 H Eosinophils # 0.1 Basophils # 0.1 Nucleated Red Blood 0.0 Cells # Sodium Level 139 Potassium Level 5.0 Chloride Level 106 Carbon Dioxide Level 24 Anion Gap 9 Blood Urea Nitrogen 82 H Creatinine 1.41 H Est Glomerular Filtrat Rate mL/min Glucose Level 106 Calcium Level 9.6 Phosphorus Level 4.8 Magnesium Level 1.9 Test 09/25/18 11:46 09/25/18 17:23 Bedside Glucose 139 150 Home Meds Active Scripts Front Wheel Walker* (Front Wheel Walker*) 1 Each Dme, 1 EACH [facility] DIRECTED, #1 DME 0 Refills Prov:LEKKOS,EZEKIELSTOLOS A. DO 05/28/17 Sodium Polystyrene Sulfonate* (Kayexalate*) 15 Gm/60 Ml Susp, 30 GM PO each day for 2 Days, ML Prov:LEBONNIEOS,EZEKIELSTOLOS A. DO 05/28/17 Medications Current Medications Senna (Senokot) 1 tab HS PO Last administered on 09/24/18at 21:06; Admin Dose 1 TAB; Start 09/19/18 at 21:00 Magnesium Hydroxide (Milk Of Mag) 30 ml BID PRN PO CONSTIPATION; Start 09/19/18 at 14:30 Lactulose (Enulose) 20 gm DAILY PRN PO CONSTIPATION; Start 09/19/18 at 14:30 Miscellaneous Information [facility] This patient jean-baptiste... PRN PRN XX WOUND CARE; Start 09/19/18 at 14:30 Diphenhydramine HCl (Benadryl) 12.5 mg Q4H PRN IV ITCHING; Start 09/19/18 at 14:30 Febuxostat (Uloric) 40 mg DAILY PO Last administered on 09/25/18 08:47; Admin Dose 40 MG; Start 09/20/18 at 09:00 Heparin Sodium (Porcine) (Heparin (5000 Units/1ml)) 5,000 unit BID SC Last administered on 09/25/18 08:57; Admin Dose 5,000 UNIT; Start 09/19/18 at 21:00 Insulin Glargine (Lantus) 20 units DAILY@2000 SC Last administered on 09/24/18 20:51; Admin Dose 20 UNITS; Start 09/19/18 at 20:00 Levalbuterol (Xopenex Neb) 0.63 mg Q6H RESP THERAPY HHN Last administered on 09/25/18 14:11; Admin Dose 0.63 MG; Start 09/19/18 at 20:00 Miconazole Nitrate (Miconazole 2% Cr) 1 applic BID TOP Last administered on 09/25/18 08:57; Admin Dose 1 APPLIC; Start 09/19/18 at 21:00 Nalbuphine HCl (Nubain) 2 mg Q6 PRN IV PRURITUS; Start 09/19/18 at 14:30 Phenol (Chloraseptic Throat [place]) 2 spray Q3 PRN MT SORE THROAT; Start 09/19/18 at 14:30 Spironolactone (Aldactone) 25 mg DAILY GTB Last administered on 09/20/18 08:29; Admin Dose 25 MG; Start 09/20/18 at 09:00; Status Hold Tamsulosin HCl (Flomax) 0.4 mg PC BREAKFAST PO Last administered on 09/25/18 08:46; Admin Dose 0.4 MG; Start 09/20/18 at 08:35 Tobramycin/ Dexamethasone (Tobradex Oph Drop) 1 drop QID BOTH EYES Last administered on 09/25/18 17:23; Admin Dose 1 DROP; Start 09/19/18 at 17:00 Diagnostic Test (Pha) (Accu-Chek) 1 ea 02 XX ; Start 09/20/18 at 02:00 Insulin Aspart (Novolog Insulin Pen) NOVOLOG *MILD* ALGORITHM WITH MEALS BEDTIM E SC Last administered on 09/25/18 17:28; Admin Dose 1 UNIT; Start 09/19/18 at 17:35 Miscellaneous Information 1 ea NOTE XX ; Start 09/19/18 at 16:30 Glucose (Glutose) 15 gm Q15M PRN PO DECREASED GLUCOSE; Start 09/19/18 at 16:30 Glucose (Glutose) 22.5 gm Q15M PRN PO DECREASED GLUCOSE; Start 09/19/18 at 16:30 Dextrose (D50w Syringe) 25 ml Q15M PRN IV DECREASED GLUCOSE; Start 09/19/18 at 16:30 Dextrose (D50w Syringe) 50 ml Q15M PRN IV DECREASED GLUCOSE; Start 09/19/18 at 16:30 Glucagon (Glucagen) 1 mg Q15M PRN IM DECREASED GLUCOSE; Start 09/19/18 at 16:30 Glucose (Glutose) 15 gm Q15M PRN BUCCAL DECREASED GLUCOSE; Start 09/19/18 at 16:30 Bisacodyl (Dulcolax Supp) 10 mg DAILY PRN HI CONSTIPATION; Start 09/20/18 at 01:00 Acetaminophen (Tylenol Liquid) 650 mg Q4H PRN PO MILD PAIN(1-3)OR ELEVATED TEMP; Start 09/20/18 at 18:30 Cholecalciferol (Vitamin D) 1,000 unit DAILY PO Last administered on 09/25/18 08:47; Admin Dose 1,000 UNIT; Start 09/21/18 at 09:00 Diphenhydramine HCl (Benadryl Liquid Cup) 25 mg Q4H PRN PO ITCHING; Start 09/20/18 at 18:30 Docusate Sodium (Colace Liquid Cup) 100 mg BID PO Last administered on 09/25/18at 08:47; Admin Dose 100 MG; Start 09/20/18 at 21:00 Folic Acid (Folic Acid) 1 mg DAILY PO Last administered on 09/25/18 08:46; Admin Dose 1 MG; Start 09/21/18 at 09:00 Glycopyrrolate (Robinul) 1 mg BID PO Last administered on 09/25/18 08:46; Admin Dose 1 MG; Start 09/20/18 at 21:00 Lansoprazole (Prevacid) 30 mg DAILY@06 PO Last administered on 09/25/18 06:02; Admin Dose 30 MG; Start 09/21/18 at 06:00 Levothyroxine Sodium (Synthroid) 137 mcg DAILY@06 PO Last administered on 4/2/19at 06:02; Admin Dose 137 MCG; Start 09/21/18 at 06:00 Multivit/Ca Carb/ B Cmplx/FA/Prenat (Daphnie-Nikole) 1 tab DAILY PO Last administered on 09/25/18 08:47; Admin Dose 1 TAB; Start 09/21/18 at 09:00 Prochlorperazine (Compazine) 5 mg Q6H PRN PO NAUSEA AND/OR VOMITING; Start 09/20/18 at 18:30 Propranolol HCl (Inderal) 20 mg TID PO Last administered on 09/25/18 08:47; Admin Dose 20 MG; Start 09/20/18 at 21:00 Fluconazole (Diflucan) 100 mg DAILY PO Last administered on 09/25/18 08:47; Admin Dose 100 MG; Start 09/21/18 at 13:00 Assessment/Plan Hospital Course (Demo Recall) 1. Atrial fibrillation: Heart rate controlled. Unable to fully anticoagulated due to concern about the anemia and OB positive stool 2. Congestive heart failure/cardiomyopathy: Chronic secondary systolic heart failure and stable now 3. Status post hypoxemic respiratory failure and tracheostomy: Currently trach is capped 4. Anemia and OB positive stool 5. Debility 6. This was empyema/pneumonia 7. dysphasia status post PEG placement 8. Renal insufficiency Recommendation: Continue with the propranolol for heart rate and blood pressure control Respiratory care as needed. Nutritional support to be continued Currently patient off of anticoagulation due to concern about the severe anemia and GI bleeding cont With physical therapy and rehab Renal management as per Dr. Lindsey and associate Thank you for his referral. We will continue to follow along with MARCO A NAJERA MD [facility] MARCO A NAJERA MD Sep 25, 2018 17:43
[2018-09-25 20:00] VITALS: BP 108/71; PULSE 73; RESP 18
[2018-09-25] MEDS: SENNA TAB PO SCH (21:36)
[2018-09-25] MEDS: INSULIN GLARGINE [LANTus] (100 UNITS/ML) SYG SC SCH (21:42)
[2018-09-26] MEDS: LEVALBUTEROL (NEB) 0.63 MG/3 ML AMP HHN SCH ×4 (01:30→20:28)
[2018-09-26 02:10] VITALS: BP 96/60; PULSE 103; RESP 18
[2018-09-26] MEDS: ACCU-CHEK XX SCH (02:56)
[2018-09-26] MEDS: LEVOTHYROXINE 137 MCG TAB PO SCH (06:40)
[2018-09-26] MEDS: LANSOPRAZOLE 30 MG CAP PO SCH (06:40)
[2018-09-26 07:30] VITALS: BP 127/82; PULSE 109; RESP 20
[2018-09-26] MEDS: INSULIN ASPART [NOVOLOG] 3 ML PEN SC SCH ×4 (07:35→21:00)
--- NOTE | 2018-09-26 08:52 | PN ---
DATE: 09/26/2018 SUBJECTIVE: The patient is stable. No events overnight. OBJECTIVE: VITAL SIGNS: Blood pressure is 96/60, respirations 18, pulse 103, temperature 97.9. HEENT: Head is normocephalic. NECK: Supple. HEART: Regular rate. LUNGS: Show diminished breath sounds at the base. ABDOMEN: Soft, nontender to palpation without rebound or guarding. EXTREMITIES: Negative for clubbing, cyanosis, no edema. DERMATOLOGIC: No rashes. MUSCULOSKELETAL: No joint effusion. NEUROLOGIC: No change in exam. MEDICATIONS: Reviewed. LABORATORY DATA: From 09/25/2018 has been reviewed. ASSESSMENT AND PLAN: 1. Chronic respiratory failure. The patient is status post decannulation, currently stable. Contin ue to monitor. 2. Dysphagia, status post PEG removal. The patient is tolerating p.o. as well. Continue to monitor . 3. Chronic kidney disease. Renal function is stable. Continue current medical management. 4. Anemia. Continue to monitor hemoglobin and hematocrit levels. We will give Epogen as needed. 5. Mineral bone disorder, monitor calcium and phosphorus levels. 6. Atrial fibrillation, currently in sinus rhythm. Continue current medical management. 7. Hypothyroidism. Continue Synthroid. 8. Benign prostatic hypertrophy. Continue Uloric. 9. Constipation. Continue current bowel regimen. 10. History of hypertension. The patient is currently normotensive to hypotensive. Monitor closely . Continue parameters on blood pressure regimen. Dictated By: FARAZ GONGORA DO NR/NTS Conf#: [id number] DID#: [id number] CC: JESUS CHAMBERS MD; CAROLINA BENAVIDES MD; CHARLENE LYMAN DO;*EndCC*
[2018-09-26] MEDS: TOBRAMYCIN/DEXAMETH 2.5 ML OPH BOTH EYES SCH ×4 (08:55→20:45)
[2018-09-26] MEDS: GLYCOPYRROLATE 1 MG TAB PO SCH ×2 (08:56→20:42)
[2018-09-26] MEDS: FEBUXOSTAT 40 MG TABLET PO SCH (08:56)
[2018-09-26] MEDS: MULTIVIT/CA CARB/B CMPLX/FA TAB PO SCH (08:56)
[2018-09-26] MEDS: TAMSULOSIN (SR) 0.4 MG CAP PO SCH (08:56)
[2018-09-26] MEDS: FLUCONAZOLE 100 MG TAB PO SCH (08:56)
[2018-09-26] MEDS: CHOLECALCIFEROL 1,000 UNIT TAB PO SCH (08:57)
[2018-09-26] MEDS: PROPRANOLOL 20 MG TAB PO SCH ×3 (08:57→20:44)
[2018-09-26] MEDS: FOLIC ACID 1 MG TAB PO SCH (08:57)
[2018-09-26] MEDS: DOCUSATE SODIUM 10 MG/ML (10ML CUP) PO SCH ×2 (08:57→21:00)
[2018-09-26] MEDS: MICONAZOLE 2% 30 GM CR TOP SCH ×2 (09:01→20:59)
[2018-09-26] MEDS: HEPARIN 5,000 UNIT/1 ML VIAL SC SCH ×2 (09:01→20:57)
--- NOTE | 2018-09-26 10:10 | CONS ---
Consult Date/Type/Reason Admit Date/Time Sep 19, 2018 at 13:50 Initial Consult Date 09/21/18 Type of Consultation: cv Requesting Provider: FARAZ GONGORA DO Date/Time of Note DATE: 09/26/18 TIME: 10:10 Subjective Cardiology follow-up progress Subjective: Discussed with the staff. Patient with no chest pain or pressure. He continues to cooperate with physical therapy. Breathing appears to be stabilizing Objective: General: Elderly gentleman in no acute distress HEENT: NC/AT. pupils are equal. round. NECK: Status with previous trach which is closed. no stridor. CV: Irregularly regular. systolic murmur; no gallop or rubs. PULM: no wheezing or rhonchi. GI: SOFT, NT, ND, no rebound or guarding . Extremity: trace B/L LE edema. no clubbing. neuro: awake and alert, Psych: calm and pleasant rectal: deferred : normal [id number] 2018 which was personally reviewed shows: Normal left ventricular cavity size. Moderate concentric left ventricular hypertrophy. Severe global left ventricular systolic dysfunction. Ejection fraction is visually estimated at 35-40 %. Tissue Doppler/Mitral Doppler indices are indeterminate in this study due to the presence of . Mitral valve leaflets appear mildly thickened. Mild mitral annular calcification. Mild mitral valve regurgitation. No significant aortic stenosis or insufficiency. Aortic cusps appear mildly calcified. Normal appearance of the tricuspid valve. Estimated peak PA systolic pressure 30 mmHg. There is trace tricuspid regurgitation. There is mild enlargement of left atrium. Trivial pericardial effusion. Objective Vitals Vital Signs Date Temp Pulse Resp B/P (MAP) Pulse Ox O2 O2 Flow FiO2 Time Delivery Rate 09/26/18 97.6 109 20 127/82 96 Room Air 07:30 (97) 09/26/18 21 01:30 Intake and Output 09/25/18 09/25/18 09/26/18 1515:00 23:00 07:00 IntakeIntake Total 1330 ml OutputOutput Total 420 ml 400 ml BalanceBalance 910 ml -400 ml Results/Medications Result Diagram: 09/25/18 0634 09/25/18 0634 Results 24 hrs Laboratory Tests Test 09/25/18 11:46 09/25/18 17:23 09/25/18 21:34 09/26/18 02:16 Bedside Glucose 139 150 182 108 Test 09/26/18 07:55 Bedside Glucose 86 Home Meds Active Scripts Front Wheel Walker* (Front Wheel Walker*) 1 Each Dme, 1 EACH MC DIRECTED, #1 DME 0 Refills Prov:TC ZAMORA DO 05/28/17 Sodium Polystyrene Sulfonate* (Kayexalate*) 15 Gm/60 Ml Susp, 30 GM PO each day for 2 Days, ML Prov:TC ZAMORA DO 05/28/17 Medications Current Medications Senna (Senokot) 1 tab HS PO Last administered on 09/25/18 21:36; Admin Dose 1 TAB; Start 09/19/18 at 21:00 Magnesium Hydroxide (Milk Of Mag) 30 ml BID PRN PO CONSTIPATION; Start 09/19/18 at 14:30 Lactulose (Enulose) 20 gm DAILY PRN PO CONSTIPATION; Start 09/19/18 at 14:30 Miscellaneous Information (Pending [facility] Order For Wound Care) This patient jean-baptiste... PRN PRN XX WOUND CARE; Start 09/19/18 at 14:30 Diphenhydramine HCl (Benadryl) 12.5 mg Q4H PRN IV ITCHING; Start 09/19/18 at 14:30 Febuxostat (Uloric) 40 mg DAILY PO Last administered on 09/26/18 08:56; Admin Dose 40 MG; Start 09/20/18 at 09:00 Heparin Sodium (Porcine) (Heparin (5000 Units/1ml)) 5,000 unit BID SC Last administered on 09/26/18 09:01; Admin Dose 5,000 UNIT; Start 09/19/18 at 21:00 Insulin Glargine (Lantus) 20 units DAILY@2000 SC Last administered on 09/25/18 21:42; Admin Dose 20 UNITS; Start 09/19/18 at 20:00 Levalbuterol (Xopenex Neb) 0.63 mg Q6H RESP THERAPY HHN Last administered on 09/26/18 08:01; Admin Dose 0.63 MG; Start 09/19/18 at 20:00 Miconazole Nitrate (Miconazole 2% Cr) 1 applic BID TOP Last administered on 09/26/18 09:01; Admin Dose 1 APPLIC; Start 09/19/18 at 21:00 Nalbuphine HCl (Nubain) 2 mg Q6 PRN IV PRURITUS; Start 09/19/18 at 14:30 Phenol (Chloraseptic Throat [place]) 2 spray Q3 PRN MT SORE THROAT; Start 09/19/18 at 14:30 Spironolactone (Aldactone) 25 mg DAILY GTB Last administered on 09/20/18at 08:29; Admin Dose 25 MG; Start 09/20/18 at 09:00; Status Hold Tamsulosin HCl (Flomax) 0.4 mg PC BREAKFAST PO Last administered on 09/26/18at 08:56; Admin Dose 0.4 MG; Start 09/20/18 at 08:35 Tobramycin/ Dexamethasone (Tobradex Oph Drop) 1 drop QID BOTH EYES Last administered on 09/26/18at 08:55; Admin Dose 1 DROP; Start 09/19/18 at 17:00 Diagnostic Test (Pha) (Accu-Chek) 1 ea 02 XX Last administered on 09/26/18at 02:56; Admin Dose 1 EA; Start 09/20/18 at 02:00 Insulin Aspart (Novolog Insulin Pen) NOVOLOG *MILD* ALGORITHM WITH MEALS BEDTIME SC Last administered on 09/25/18at 21:42; Admin Dose 1 UNIT; Start 09/19/18 at 17:35 Miscellaneous Information 1 ea NOTE XX ; Start 09/19/18 at 16:30 Glucose (Glutose) 15 gm Q15M PRN PO DECREASED GLUCOSE; Start 09/19/18 at 16:30 Glucose (Glutose) 22.5 gm Q15M PRN PO DECREASED GLUCOSE; Start 09/19/18 at 16:30 Dextrose (D50w Syringe) 25 ml Q15M PRN IV DECREASED GLUCOSE; Start 09/19/18 at 16:30 Dextrose (D50w Syringe) 50 ml Q15M PRN IV DECREASED GLUCOSE; Start 09/19/18 at 16:30 Glucagon (Glucagen) 1 mg Q15M PRN IM DECREASED GLUCOSE; Start 09/19/18 at 16:30 Glucose (Glutose) 15 gm Q15M PRN BUCCAL DECREASED GLUCOSE; Start 09/19/18 at 16:30 Bisacodyl (Dulcolax Supp) 10 mg DAILY PRN HI CONSTIPATION; Start 09/20/18 at 01:00 Acetaminophen (Tylenol Liquid) 650 mg Q4H PRN PO MILD PAIN(1-3)OR ELEVATED TEMP Last administered on 09/25/18 20:06; Admin Dose 650 MG; Start 09/20/18 at 18:30 Cholecalciferol (Vitamin D) 1,000 unit DAILY PO Last administered on 09/26/18 08:57; Admin Dose 1,000 UNIT; Start 09/21/18 at 09:00 Diphenhydramine HCl (Benadryl Liquid Cup) 25 mg Q4H PRN PO ITCHING; Start 09/20/18 at 18:30 Docusate Sodium (Colace Liquid Cup) 100 mg BID PO Last administered on 09/26/18 08:57; Admin Dose 100 MG; Start 09/20/18 at 21:00 Folic Acid (Folic Acid) 1 mg DAILY PO Last administered on 09/26/18 08:57; Admin Dose 1 MG; Start 09/21/18 at 09:00 Glycopyrrolate (Robinul) 1 mg BID PO Last administered on 09/26/18 08:56; Admin Dose 1 MG; Start 09/20/18 at 21:00 Lansoprazole (Prevacid) 30 mg DAILY@06 PO Last administered on 09/26/18 06:40; Admin Dose 30 MG; Start 09/21/18 at 06:00 Levothyroxine Sodium (Synthroid) 137 mcg DAILY@06 PO Last administered on 09/26/18 06:40; Admin Dose 137 MCG; Start 09/21/18 at 06:00 Multivit/Ca Carb/ B Cmplx/FA/Prenat (Daphnie-Nikole) 1 tab DAILY PO Last administered on 09/26/18 08:56; Admin Dose 1 TAB; Start 09/21/18 at 09:00 Prochlorperazine (Compazine) 5 mg Q6H PRN PO NAUSEA AND/OR VOMITING; Start 09/20/18 at 18:30 Propranolol HCl (Inderal) 20 mg TID PO Last administered on 09/26/18 08:57; Admin Dose 20 MG; Start 09/20/18 at 21:00 Fluconazole (Diflucan) 100 mg DAILY PO Last administered on 09/26/18 08:56; Admin Dose 100 MG; Start 09/21/18 at 13:00 Assessment/Plan Hospital Course (Demo Recall) 1. Atrial fibrillation: Heart rate controlled. Unable to fully anticoagulated due to concern about the anemia and OB positive stool 2. Congestive heart failure/cardiomyopathy: Chronic secondary systolic heart failure and stable now 3. Status post hypoxemic respiratory failure and tracheostomy: Currently trach is capped 4. Anemia and OB positive stool 5. Debility 6. This was empyema/pneumonia 7. dysphasia status post PEG placement 8. Renal insufficiency Recommendation: Continue with the propranolol for heart rate and blood pressure control Respiratory care as needed. Nutritional support to be continued Currently patient off of anticoagulation due to concern about the severe anemia and GI bleeding cont With physical therapy and rehab Renal management as per Dr. Gongora and associate Thank you for his referral. We will continue to follow along with MARCO A NAJERA MD [facility] MARCO A NAJERA MD Sep 26, 2018 10:10
--- NOTE | 2018-09-26 12:29 | CONS ---
Consult Date/Type/Reason Admit Date/Time Sep 19, 2018 at 13:50 Initial Consult Date 09/21/18 Type of Consult Pulmonary Requesting Provider: FARAZ GONGORA DO Date/Time of Note DATE: 09/26/18 TIME: 12:28 Subjective Patient continues to remain stable. Objective Vital Signs Date Temp Pulse Resp B/P (MAP) Pulse Ox O2 O2 Flow FiO2 Time Delivery Rate 09/26/18 97.6 109 20 127/82 96 Room Air 07:30 (97) 09/26/18 21 01:30 Intake and Output 09/25/18 09/25/18 09/26/18 1515:00 23:00 07:00 IntakeIntake Total 1330 ml OutputOutput Total 420 ml 400 ml BalanceBalance 910 ml -400 ml Exam GENERAL: Elderly gentleman VITAL SIGNS: per chart NECK: Supple. No JVD or lymphadenopathy. CARDIAC EXAM: S1, S2. No added sounds or murmurs. CHEST: clear bilaterally, No added sounds, rales or wheezes ABDOMEN: Soft, nontender. No guarding or rebound. EXTREMITIES: No cyanosis, clubbing or edema. NEUROLOGIC: Generalized weakness. No focal deficits. Vent Setting Fraction of Inspired Oxygen pe: 21 Results/Medications Result Diagram: 09/25/18 0634 09/25/18 0634 Results 24 hrs Laboratory Tests Test 09/25/18 17:23 09/25/18 21:34 09/26/18 02:16 09/26/18 07:55 Bedside Glucose 150 182 108 86 Test 09/26/18 12:03 Bedside Glucose 158 Medications Current Medications Senna (Senokot) 1 tab HS PO Last administered on 09/25/18at 21:36; Admin Dose 1 TAB; Start 09/19/18 at 21:00 Magnesium Hydroxide (Milk Of Mag) 30 ml BID PRN PO CONSTIPATION; Start 09/19/18 at 14:30 Lactulose (Enulose) 20 gm DAILY PRN PO CONSTIPATION; Start 09/19/18 at 14:30 [facility] This patient jean-baptiste... PRN PRN XX WOUND CARE; Start 09/19/18 at 14:30 Diphenhydramine HCl (Benadryl) 12.5 mg Q4H PRN IV ITCHING; Start 09/19/18 at 14:30 Febuxostat (Uloric) 40 mg DAILY PO Last administered on 09/26/18 08:56; Admin Dose 40 MG; Start 09/20/18 at 09:00 Heparin Sodium (Porcine) (Heparin (5000 Units/1ml)) 5,000 unit BID SC Last administered on 09/26/18 09:01; Admin Dose 5,000 UNIT; Start 09/19/18 at 21:00 Insulin Glargine (Lantus) 20 units DAILY@2000 SC Last administered on 09/25/18 21:42; Admin Dose 20 UNITS; Start 09/19/18 at 20:00 Levalbuterol (Xopenex Neb) 0.63 mg Q6H RESP THERAPY HHN Last administered on 09/26/18 08:01; Admin Dose 0.63 MG; Start 09/19/18 at 20:00 Miconazole Nitrate (Miconazole 2% Cr) 1 applic BID TOP Last administered on 09/26/18 09:01; Admin Dose 1 APPLIC; Start 09/19/18 at 21:00 Nalbuphine HCl (Nubain) 2 mg Q6 PRN IV PRURITUS; Start 09/19/18 at 14:30 Phenol (Chloraseptic Throat [place]) 2 spray Q3 PRN MT SORE THROAT; Start 09/19/18 at 14:30 Spironolactone (Aldactone) 25 mg DAILY GTB Last administered on 09/20/18 08:29; Admin Dose 25 MG; Start 09/20/18 at 09:00; Status Hold Tamsulosin HCl (Flomax) 0.4 mg PC BREAKFAST PO Last administered on 09/26/18 08:56; Admin Dose 0.4 MG; Start 09/20/18 at 08:35 Tobramycin/ Dexamethasone (Tobradex Oph Drop) 1 drop QID BOTH EYES Last administered on 09/26/18 12:04; Admin Dose 1 DROP; Start 09/19/18 at 17:00 Diagnostic Test (Pha) (Accu-Chek) 1 ea 02 XX Last administered on 09/26/18 02:56; Admin Dose 1 EA; Start 09/20/18 at 02:00 Insulin Aspart (Novolog Insulin Pen) NOVOLOG *MILD* ALGORITHM WITH MEALS B EDTIME SC Last administered on 09/26/18 12:05; Admin Dose 1 UNIT; Start 09/19/18 at 17:35 Miscellaneous Information 1 ea NOTE XX ; Start 09/19/18 at 16:30 Glucose (Glutose) 15 gm Q15M PRN PO DECREASED GLUCOSE; Start 09/19/18 at 16:30 Glucose (Glutose) 22.5 gm Q15M PRN PO DECREASED GLUCOSE; Start 09/19/18 at 16:30 Dextrose (D50w Syringe) 25 ml Q15M PRN IV DECREASED GLUCOSE; Start 09/19/18 at 16:30 Dextrose (D50w Syringe) 50 ml Q15M PRN IV DECREASED GLUCOSE; Start 09/19/18 at 16:30 Glucagon (Glucagen) 1 mg Q15M PRN IM DECREASED GLUCOSE; Start 09/19/18 at 16:30 Glucose (Glutose) 15 gm Q15M PRN BUCCAL DECREASED GLUCOSE; Start 09/19/18 at 16:30 Bisacodyl (Dulcolax Supp) 10 mg DAILY PRN [place] CONSTIPATION; Start 09/20/18 at 01:00 Acetaminophen (Tylenol Liquid) 650 mg Q4H PRN PO MILD PAIN(1-3)OR ELEVATED TEMP Last administered on 09/25/18at 20:06; Admin Dose 650 MG; Start 09/20/18 at 18:30 Cholecalciferol (Vitamin D) 1,000 unit DAILY PO Last administered on 09/26/18 08:57; Admin Dose 1,000 UNIT; Start 09/21/18 at 09:00 Diphenhydramine HCl (Benadryl Liquid Cup) 25 mg Q4H PRN PO ITCHING; Start 09/20/18 at 18:30 Docusate Sodium (Colace Liquid Cup) 100 mg BID PO Last administered on 09/26/18 08:57; Admin Dose 100 MG; Start 09/20/18 at 21:00 Folic Acid (Folic Acid) 1 mg DAILY PO Last administered on 09/26/18 08:57; Admin Dose 1 MG; Start 09/21/18 at 09:00 Glycopyrrolate (Robinul) 1 mg BID PO Last administered on 09/26/18 08:56; Admin Dose 1 MG; Start 09/20/18 at 21:00 Lansoprazole (Prevacid) 30 mg DAILY@06 PO Last administered on 09/26/18 06:40; Admin Dose 30 MG; Start 09/21/18 at 06:00 Levothyroxine Sodium (Synthroid) 137 mcg DAILY@06 PO Last administered on 09/26/18 06:40; Admin Dose 137 MCG; Start 09/21/18 at 06:00 Multivit/Ca Carb/ B Cmplx/FA/Prenat (Daphnie-Nikole) 1 tab DAILY PO Last administered on 09/26/18 08:56; Admin Dose 1 TAB; Start 09/21/18 at 09:00 Prochlorperazine (Compazine) 5 mg Q6H PRN PO NAUSEA AND/OR VOMITING; Start 09/20/18 at 18:30 Propranolol HCl (Inderal) 20 mg TID PO Last administered on 09/26/18 08:57; Admin Dose 20 MG; Start 09/20/18 at 21:00 Fluconazole (Diflucan) 100 mg DAILY PO Last administered on 09/26/18 08:56; Admin Dose 100 MG; Start 09/21/18 at 13:00 Assessment/Plan Hospital Course (Demo Recall) IMPRESSION AND PLAN: 1. Status post hypoxemic respiratory failure decannulated, stoma healing. 2. History of atrial fibrillation. 3. History of empyema status post decortication. PLAN: 1. Stoma site care 2. Continue physical therapy 3. Aspiration precautions CAROLINA BENAVIDES MD, [facility] Sep 26, 2018 12:29
--- NOTE | 2018-09-26 12:56 | PN ---
Date/Time of Note Date/Time of Note DATE: 09/26/18 TIME: 12:54 Subjective Patient in good spirits Objective Vital Signs Date Temp Pulse Resp B/P (MAP) Pulse Ox O2 O2 Flow FiO2 Time Delivery Rate 09/26/18 97.6 109 20 127/82 96 Room Air 07:30 (97) 09/26/18 01:30 Intake and Output 09/25/18 09/25/18 09/26/18 1515:00 23:00 07:00 IntakeIntake Total 1330 ml OutputOutput Total 420 ml 400 ml BalanceBalance 910 ml -400 ml Exam pulm-cta min/mod transfer and ambulation 60 feet Results/Medications Result Diagram: 09/25/1834 09/25/1834 Results 24 hrs Laboratory Tests Test 09/25/18 17:23 09/25/18 21:34 09/26/18 02:16 09/26/18 07:55 Bedside Glucose 150 182 108 86 Test 09/26/18 12:03 Bedside Glucose 158 Medications Current Medications Senna (Senokot) 1 tab HS PO Last administered on 09/25/18at 21:36; Admin Dose 1 TAB; Start 09/19/18 at 21:00 Magnesium Hydroxide (Milk Of Mag) 30 ml BID PRN PO CONSTIPATION; Start 09/19/18 at 14:30 Lactulose (Enulose) 20 gm DAILY PRN PO CONSTIPATION; Start 09/19/18 at 14:30 [facility]iscellaneous Information [facility] This patient jean-baptiste... PRN PRN XX WOUND CARE; Start 09/19/18 at 14:30 Diphenhydramine HCl (Benadryl) 12.5 mg Q4H PRN IV ITCHING; Start 09/19/18 at 14:30 Febuxostat (Uloric) 40 mg DAILY PO Last administered on 09/26/18at 08:56; Admin Dose 40 MG; Start 09/20/18 at 09:00 Heparin Sodium (Porcine) (Heparin (5000 Units/1ml)) 5,000 unit BID SC Last a dministered on 09/26/18at 09:01; Admin Dose 5,000 UNIT; Start 09/19/18 at 21:00 Insulin Glargine (Lantus) 20 units DAILY@2000 SC Last administered on 09/25/18 21:42; Admin Dose 20 UNITS; Start 09/19/18 at 20:00 Levalbuterol (Xopenex Neb) 0.63 mg Q6H RESP THERAPY HHN Last administered on 09/26/18 08:01; Admin Dose 0.63 MG; Start 09/19/18 at 20:00 Miconazole Nitrate (Miconazole 2% Cr) 1 applic BID TOP Last administered on 09/26/18 09:01; Admin Dose 1 APPLIC; Start 09/19/18 at 21:00 Nalbuphine HCl (Nubain) 2 mg Q6 PRN IV PRURITUS; Start 09/19/18 at 14:30 Phenol (Chloraseptic Throat [place]) 2 spray Q3 PRN MT SORE THROAT; Start 09/19/18 at 14:30 Spironolactone (Aldactone) 25 mg DAILY GTB Last administered on 09/20/18 08:29; Admin Dose 25 MG; Start 09/20/18 at 09:00; Status Hold Tamsulosin HCl (Flomax) 0.4 mg PC BREAKFAST PO Last administered on 09/26/18 08:56; Admin Dose 0.4 MG; Start 09/20/18 at 08:35 Tobramycin/ Dexamethasone (Tobradex Oph Drop) 1 drop QID BOTH EYES Last administered on 09/26/18 12:04; Admin Dose 1 DROP; Start 09/19/18 at 17:00 Diagnostic Test (Pha) (Accu-Chek) 1 ea 02 XX Last administered on 09/26/18 02:56; Admin Dose 1 EA; Start 09/20/18 at 02:00 Insulin Aspart (Novolog Insulin Pen) NOVOLOG *MILD* ALGORITHM WITH MEALS BEDTIME SC Last administered on 09/26/18 12:05; Admin Dose 1 UNIT; Start 09/19/18 at 17:35 Miscellaneous Information 1 ea NOTE XX ; Start 09/19/18 at 16:30 Glucose (Glutose) 15 gm Q15M PRN PO DECREASED GLUCOSE; Start 09/19/18 at 16:30 Glucose (Glutose) 22.5 gm Q15M PRN PO DECREASED GLUCOSE; Start 09/19/18 at 16:30 Dextrose (D50w Syringe) 25 ml Q15M PRN IV DECREASED GLUCOSE; Start 09/19/18 at 16:30 Dextrose (D50w Syringe) 50 ml Q15M PRN IV DECREASED GLUCOSE; Start 09/19/18 at 16:30 Glucagon (Glucagen) 1 mg Q15M PRN IM DECREASED GLUCOSE; Start 09/19/18 at 16:30 Glucose (Glutose) 15 gm Q15M PRN BUCCAL DECREASED GLUCOSE; Start 09/19/18 at 16:30 Bisacodyl (Dulcolax Supp) 10 mg DAILY PRN [place] CONSTIPATION; Start 09/20/18 at 0 1:00 Acetaminophen (Tylenol Liquid) 650 mg Q4H PRN PO MILD PAIN(1-3)OR ELEVATED TEMP Last administered on 09/25/18 20:06; Admin Dose 650 MG; Start 09/20/18 at 18:30 Cholecalciferol (Vitamin D) 1,000 unit DAILY PO Last administered on 09/26/18 08:57; Admin Dose 1,000 UNIT; Start 09/21/18 at 09:00 Diphenhydramine HCl (Benadryl Liquid Cup) 25 mg Q4H PRN PO ITCHING; Start 09/20/18 at 18:30 Docusate Sodium (Colace Liquid Cup) 100 mg BID PO Last administered on 09/26/18 08:57; Admin Dose 100 MG; Start 09/20/18 at 21:00 Folic Acid (Folic Acid) 1 mg DAILY PO Last administered on 09/26/18 08:57; A dmin Dose 1 MG; Start 09/21/18 at 09:00 Glycopyrrolate (Robinul) 1 mg BID PO Last administered on 09/26/18 08:56; Admin Dose 1 MG; Start 09/20/18 at 21:00 Lansoprazole (Prevacid) 30 mg DAILY@06 PO Last administered on 09/26/18 06:40; Admin Dose 30 MG; Start 09/21/18 at 06:00 Levothyroxine Sodium (Synthroid) 137 mcg DAILY@06 PO Last administered on 09/26/18 06:40; Admin Dose 137 MCG; Start 09/21/18 at 06:00 Multivit/Ca Carb/ B Cmplx/FA/Prenat (Daphnie-Nikole) 1 tab DAILY PO Last administered on 09/26/18 08:56; Admin Dose 1 TAB; Start 09/21/18 at 09:00 Prochlorperazine (Compazine) 5 mg Q6H PRN PO NAUSEA AND/OR VOMITING; Start 09/20/18 at 18:30 Propranolol HCl (Inderal) 20 mg TID PO Last administered on 09/26/18at 08:57; Admin Dose 20 MG; Start 09/20/18 at 21:00 Fluconazole (Diflucan) 100 mg DAILY PO Last administered on 09/26/18at 08:56; Admin Dose 100 MG; Start 09/21/18 at 13:00 Assessment/Plan Additional Assessment/Plan Rehab- Critical illness myopathy; debility - S/p acute respiratory failure Good progress with rehab Pulm- s/p resp failure, right empyema and thoracotomy with decortication, COPD and tracheostomy- s/p decannulation doing well Chronic atrial fibrillation. Chronic kidney disease. Anemia. BPH. Hypertension. Diabetes mellitus. Impairments in hearing. JESUS CHAMBERS MD Sep 26, 2018 12:55
[2018-09-26 13:07] VITALS: BP 93/51; PULSE 69
[2018-09-26 14:00] VITALS: BP 111/81; PULSE 98; RESP 18
[2018-09-26 19:30] VITALS: BP 102/67; PULSE 77; RESP 18
[2018-09-26] MEDS: SENNA TAB PO SCH (21:00)
[2018-09-26] MEDS: INSULIN GLARGINE [LANTus] (100 UNITS/ML) SYG SC SCH (21:25)
--- NOTE | 2018-09-26 23:06 | CONS ---
DATE OF ADMISSION: 09/19/2018 DATE OF CONSULTATION: 09/26/2018 TYPE OF CONSULTATION: Psychological. REFERRING PHYSICIAN: Jesus Lindo MD CONSULTING PSYCHOLOGIST: Adelfo Rivera, PhD HISTORY OF PRESENT ILLNESS: The patient is an 83-year-old male. The patient has a history of multip le medical problems. The patient was initially treated at [facility] for empyema and respiratory failure requiring intubation. The patient was discharged, but eventually was transferred to [facility] 08/22/2018 for continued pulmonary care. The patient was released from [facility] and sent to the acute rehabilitation unit for acute multidisciplinary rehabilitation. The patient is motivated to get better and does want to return home as soon as possible. FAMILY AND SOCIAL HISTORY: The patient reports that he lives in a house in [facility] with 2 sisters. O ne of the sister was present during the consultation with the patient's permission. The patient does want to return. MEDICATIONS: The patient is not on any psychotropic medications. SUBSTANCE USE: The patient denies any use of alcohol or other drugs. The patient reports he does no t smoke. MENTAL STATUS EXAMINATION: APPEARANCE: The patient was seen in his wheelchair. He appears to be of average height and weight. The patient is right-handed. BEHAVIOR: The patient was cooperative during the consultation. The patient did attempt to answer al l questions of the interviewer. MOOD AND AFFECT: The patient's mood appears to be just slightly depressed. The patient does admit t o being more anxious and depressed. PERCEPTION: The patient reports no hallucinations or delusions. The patient was alert to person but not exactly to place, situation and time. MEMORY AND COGNITION: The patient's memory and cognition appear to be impaired. He has some difficu lty recalling recent and remote events. The patient was unable to name the hospital. The patient wa s unable to state the month and the year. He did say it was August of 2017. The patient could not te ll who the money market dealer is. The patient was able to do 1 serial 7 subtraction from 100, but then made an error and could not correct. Overall, the patient does appear to be having so me cognitive ____ at this time. INTELLIGENCE: Intelligence would appear to fall in the average range when he was functioning well. INSIGHT: Poor. THOUGHT CONTENT: The patient is concerned about his present medical condition. The patient does wan t to return home as soon as possible. The patient is frustrated about by all his medical problems. DISCUSSION: The patient may be able to benefit from some cognitive/behavioral psychotherapy while he is on the unit. Psychotherapy would focus on all his frustration about all his medical problems and his cognitive abilities. 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 Thank you very much, Dr. Yogesh Lindo, for referring this individual. Please do not hesitate to niranjan smith if you have additional questions. Dictated By: ADELFO RIVERA PHD RK/PAPA Conf#: [id number] DID#: [id number] CC: JESUS LINDO MD; CAROLINA BENAVIDES MD; CHARLENE LYMAN DO;*EndCC*
[2018-09-27] MEDS: LEVALBUTEROL (NEB) 0.63 MG/3 ML AMP HHN SCH ×4 (01:53→21:38)
[2018-09-27 02:00] VITALS: BP 115/58; PULSE 85; RESP 18
[2018-09-27] MEDS: ACCU-CHEK XX SCH (02:00)
[2018-09-27] MEDS: LANSOPRAZOLE 30 MG CAP PO SCH (06:53)
[2018-09-27] MEDS: LEVOTHYROXINE 137 MCG TAB PO SCH (06:53)
[2018-09-27 07:00] VITALS: BP 101/60; PULSE 89; RESP 18
[2018-09-27] MEDS: INSULIN ASPART [NOVOLOG] 3 ML PEN SC SCH ×4 (07:35→21:16)
[2018-09-27] MEDS: TAMSULOSIN (SR) 0.4 MG CAP PO SCH (07:52)
--- NOTE | 2018-09-27 08:41 | PN ---
DATE: 09/27/2018 SUBJECTIVE: The patient is stable, no events overnight. OBJECTIVE: VITAL SIGNS: Blood pressure is 115/58, respirations 18, pulse 85, temperature 97.8. HEENT: Head is normocephalic. NECK: Supple. HEART: Regular rate. LUNGS: Show diminished breath sounds at the base. ABDOMEN: Soft, nontender to palpation without rebound or guarding. EXTREMITIES: Negative for clubbing, cyanosis, no edema. DERMATOLOGIC: No rashes. MUSCULOSKELETAL: No joint effusion. NEUROLOGIC: No change in exam. MEDICATIONS: Reviewed. LABORATORY DATA: Reviewed. ASSESSMENT AND PLAN: 1. Chronic respiratory failure. The patient is status post decannulation, currently stable. Contin ue to monitor. 2. Dysphagia, status post PEG removal. Continue to advance diet. 3. Chronic kidney disease. Renal function is stable. Continue medical management. 4. Anemia. Continue to monitor hemoglobin and hematocrit levels. We will give Epogen as needed. 5. Mineral bone disorder, monitor calcium and phosphorus levels. 6. Atrial fibrillation, currently in sinus rhythm. Continue medical management. 7. Hypothyroidism. Continue Synthroid. 8. Benign prostatic hypertrophy. Continue Uloric. 9. Constipation. Continue current bowel regimen. 10. History of hypertension. Blood pressure is currently well controlled. Continue to monitor. 11. Diabetes. Continue current insulin regimen. The patient had episode of hypoglycemia. Monitor closely. We will just insulin regimen as needed. Dictated By: FARAZ GONGORA DO NR/NTS Conf#: [id number] DID#: [id number] CC: CHARLENE LYMAN DO; CAROLINA BENAVIDES MD; JESUS CHAMBERS MD;*End*
[2018-09-27] MEDS: TOBRAMYCIN/DEXAMETH 2.5 ML OPH BOTH EYES SCH ×4 (09:27→21:14)
[2018-09-27] MEDS: DOCUSATE SODIUM 10 MG/ML (10ML CUP) PO SCH ×2 (09:28→21:08)
[2018-09-27] MEDS: FOLIC ACID 1 MG TAB PO SCH (09:29)
[2018-09-27] MEDS: MULTIVIT/CA CARB/B CMPLX/FA TAB PO SCH (09:29)
[2018-09-27] MEDS: GLYCOPYRROLATE 1 MG TAB PO SCH ×2 (09:29→21:08)
[2018-09-27] MEDS: PROPRANOLOL 20 MG TAB PO SCH ×3 (09:29→21:00)
[2018-09-27] MEDS: FEBUXOSTAT 40 MG TABLET PO SCH (09:29)
[2018-09-27] MEDS: CHOLECALCIFEROL 1,000 UNIT TAB PO SCH (09:29)
[2018-09-27] MEDS: FLUCONAZOLE 100 MG TAB PO SCH (09:30)
[2018-09-27] MEDS: MICONAZOLE 2% 30 GM CR TOP SCH ×2 (09:30→21:00)
[2018-09-27] MEDS: HEPARIN 5,000 UNIT/1 ML VIAL SC SCH ×2 (09:36→21:15)
--- NOTE | 2018-09-27 09:48 | CONS ---
Consult Date/Type/Reason Admit Date/Time Sep 19, 2018 at 13:50 Initial Consult Date 09/21/18 Type of Consultation: cv Requesting Provider: FARAZ LINDSEY DO Date/Time of Note DATE: 09/27/18 TIME: 09:48 Subjective Cardiology follow-up progress Subjective: Discussed with the staff. Patient with no chest pain or pressure. He continues to cooperate with physical therapy. Breathing appears to be stabilizing Objective: General: Elderly gentleman in no acute distress HEENT: NC/AT. pupils are equal. round. NECK: Status with previous trach which is closed. no stridor. CV: Irregularly regular. systolic murmur; no gallop or rubs. PULM: no wheezing or rhonchi. GI: SOFT, NT, ND, no rebound or guarding . Extremity: trace B/L LE edema. no clubbing. neuro: awake and alert, Psych: calm and pleasant rectal: deferred : normal [id number] 2018 which was personally reviewed shows: Normal left ventricular cavity size. Moderate concentric left ventricular hypertrophy. Severe global left ventricular systolic dysfunction. Ejection fraction is visually estimated at 35-40 %. Tissue Doppler/Mitral Doppler indices are indeterminate in this study due to the presence of . Mitral valve leaflets appear mildly thickened. Mild mitral annular calcification. Mild mitral valve regurgitation. No significant aortic stenosis or insufficiency. Aortic cusps appear mildly calcified. Normal appearance of the tricuspid valve. Estimated peak PA systolic pressure 30 mmHg. There is trace tricuspid regurgitation. There is mild enlargement of left atrium. Trivial pericardial effusion. Objective Vitals Vital Signs Date Temp Pulse Resp B/P (MAP) Pulse Ox O2 O2 Flow FiO2 Time Delivery Rate 09/27/18 89 20 95 21 09:31 09/27/18 97.3 101/60 Room Air 07:00 (74) Intake and Output 09/26/18 09/26/18 09/27/18 1515:00 23:00 07:00 IntakeIntake Total 640 ml BalanceBalance 640 ml Results/Medications Result Diagram: 09/25/18 0634 09/25/18 0634 Results 24 hrs Laboratory Tests Test 09/26/18 12:03 09/26/18 17:32 09/26/18 20:51 09/27/18 07:32 Bedside Glucose 158 99 138 63 L Test 09/27/18 07:51 09/27/18 08:10 Bedside Glucose 82 108 Home Meds Active Scripts Front Wheel Walker* (Front Wheel Walker*) 1 Each Dme, 1 EACH [facility] DIRECTED, #1 DME 0 Refills Prov:DESTINIFERTC. DO 05/28/17 Sodium Polystyrene Sulfonate* (Kayexalate*) 15 Gm/60 Ml Susp, 30 GM PO each day for 2 Days, ML Prov:DESTINIOSEZEKIELSTKASHIFS A. DO 05/28/17 Medications Current Medications Senna (Senokot) 1 tab HS PO Last administered on 09/25/18 21:36; Admin Dose 1 TAB; Start 09/19/18 at 21:00 Magnesium Hydroxide (Milk Of Mag) 30 ml BID PRN PO CONSTIPATION; Start 09/19/18 at 14:30 Lactulose (Enulose) 20 gm DAILY PRN PO CONSTIPATION; Start 09/19/18 at 14:30 Miscellaneous Information (Pending [facility] Order For Wound Care) This patient jean-baptiste... PRN PRN XX WOUND CARE; Start 09/19/18 at 14:30 Diphenhydramine HCl (Benadryl) 12.5 mg Q4H PRN IV ITCHING; Start 09/19/18 at 14:30 Febuxostat (Uloric) 40 mg DAILY PO Last administered on 09/27/18 09:29; Admin Dose 40 MG; Start 09/20/18 at 09:00 Heparin Sodium (Porcine) (Heparin (5000 Units/1ml)) 5,000 unit BID SC Last administered on 09/27/18 09:36; Admin Dose 5,000 UNIT; Start 09/19/18 at 21:00 Levalbuterol (Xopenex Neb) 0.63 mg Q6H RESP THERAPY HHN Last administered on 09/27/18 09:28; Admin Dose 0.63 MG; Start 09/19/18 at 20:00 Miconazole Nitrate (Miconazole 2% Cr) 1 applic BID TOP Last administered on 09/27/18 09:30; Admin Dose 1 APPLIC; Start 09/19/18 at 21:00 Nalbuphine HCl (Nubain) 2 mg Q6 PRN IV PRURITUS; Start 09/19/18 at 14:30 Phenol (Chloraseptic Throat [place]) 2 spray Q3 PRN MT SORE THROAT; Start 09/19/18 at 14:30 Spironolactone (Aldactone) 25 mg DAILY GTB Last administered on 09/20/18at 08:29; Admin Dose 25 MG; Start 09/20/18 at 09:00; Status Hold Tamsulosin HCl (Flomax) 0.4 mg PC BREAKFAST PO Last administered on 09/27/18 07:52; Admin Dose 0.4 MG; Start 09/20/18 at 08:35 Tobramycin/ Dexamethasone (Tobradex Oph Drop) 1 drop QID BOTH EYES Last administered on 09/27/18 09:27; Admin Dose 1 DROP; Start 09/19/18 at 17:00 Diagnostic Test (Pha) (Accu-Chek) 1 ea 02 XX Last administered on 09/26/18 02:56; Admin Dose 1 EA; Start 09/20/18 at 02:00 Insulin Aspart (Novolog Insulin Pen) NOVOLOG *MILD* ALGORITHM WITH MEALS BEDTIME SC Last administered on 09/26/18 12:05; Admin Dose 1 UNIT; Start 09/19/18 at 17:35 Miscellaneous Information 1 ea NOTE XX ; Start 09/19/18 at 16:30 Glucose (Glutose) 15 gm Q15M PRN PO DECREASED GLUCOSE; Start 09/19/18 at 16:30 Glucose (Glutose) 22.5 gm Q15M PRN PO DECREASED GLUCOSE; Start 09/19/18 at 16:3 0 Dextrose (D50w Syringe) 25 ml Q15M PRN IV DECREASED GLUCOSE; Start 09/19/18 at 16:30 Dextrose (D50w Syringe) 50 ml Q15M PRN IV DECREASED GLUCOSE; Start 09/19/18 at 16:30 Glucagon (Glucagen) 1 mg Q15M PRN IM DECREASED GLUCOSE; Start 09/19/18 at 16:30 Glucose (Glutose) 15 gm Q15M PRN BUCCAL DECREASED GLUCOSE; Start 09/19/18 at 16:30 Bisacodyl (Dulcolax Supp) 10 mg DAILY PRN [place] CONSTIPATION; Start 09/20/18 at 01:00 Acetaminophen (Tylenol Liquid) 650 mg Q4H PRN PO MILD PAIN(1-3)OR ELEVATED TEMP Last administered on 09/25/18 20:06; Admin Dose 650 MG; Start 09/20/18 at 18:30 Cholecalciferol (Vitamin D) 1,000 unit DAILY PO Last administered on 09/27/18 09:29; Admin Dose 1,000 UNIT; Start 09/21/18 at 09:00 Diphenhydramine HCl (Benadryl Liquid Cup) 25 mg Q4H PRN PO ITCHING; Start 09/20/18 at 18:30 Docusate Sodium (Colace Liquid Cup) 100 mg BID PO Last administered on 09/27/18 09:28; Admin Dose 100 MG; Start 09/20/18 at 21:00 Folic Acid (Folic Acid) 1 mg DAILY PO Last administered on 09/27/18 09:29; Admin Dose 1 MG; Start 09/21/18 at 09:00 Glycopyrrolate (Robinul) 1 mg BID PO Last administered on 09/27/18:29; Admin Dose 1 MG; Start 09/20/18 at 21:00 Lansoprazole (Prevacid) 30 mg DAILY@06 PO Last administered on 09/27/18 06:53; Admin Dose 30 MG; Start 09/21/18 at 06:00 Levothyroxine Sodium (Synthroid) 137 mcg DAILY@06 PO Last administered on 09/27/18 06:53; Admin Dose 137 MCG; Start 09/21/18 at 06:00 Multivit/Ca Carb/ B Cmplx/FA/Prenat (Daphine-Nikole) 1 tab DAILY PO Last administered on 09/27/18 09:29; Admin Dose 1 TAB; Start 09/21/18 at 09:00 Prochlorperazine (Compazine) 5 mg Q6H PRN PO NAUSEA AND/OR VOMITING; Start 09/20/18 at 18:30 Propranolol HCl (Inderal) 20 mg TID PO Last administered on 09/27/18 09:29; Admin Dose 20 MG; Start 09/20/18 at 21:00 Fluconazole (Diflucan) 100 mg DAILY PO Last administered on 09/27/18 09:30; Admin Dose 100 MG; Start 09/21/18 at 13:00 Insulin Glargine (Lantus) 16 units DAILY@2000 SC ; Start 09/27/18 at 20:00 Assessment/Plan Hospital Course (Demo Recall) 1. Atrial fibrillation: Heart rate controlled. Unable to fully anticoagulated due to concern about the anemia and OB positive stool 2. Congestive heart failure/cardiomyopathy: Chronic secondary systolic heart failure and stable now 3. Status post hypoxemic respiratory failure and tracheostomy: Currently trach is capped 4. Anemia and OB positive stool 5. Debility 6. This was empyema/pneumonia 7. dysphasia status post PEG placement 8. Renal insufficiency Recommendation: Continue with the propranolol for heart rate and blood pressure control Respiratory care as needed. Nutritional support to be continued Currently patient off of anticoagulation due to concern about the severe anemia and GI bleeding cont With physical therapy and rehab Renal management as per Dr. Lindsey and associate Thank you for his referral. We will continue to follow along with MARCO A NAJERA MD [facility] MARCO A NAJERA MD Sep 27, 2018 09:48
[2018-09-27 14:00] VITALS: BP 118/64; PULSE 100; RESP 18
--- NOTE | 2018-09-27 14:02 | PN ---
Date/Time of Note Date/Time of Note DATE: 09/27/18 TIME: 14:01 Objective Vital Signs Date Temp Pulse Resp B/P (MAP) Pulse Ox O2 O2 Flow FiO2 Time Delivery Rate 09/27/18 89 20 95 21 09:31 09/27/18 97.3 101/60 Room Air 07:00 (74) Intake and Output 09/26/18 09/26/18 09/27/18 1515:00 23:00 07:00 IntakeIntake Total 640 ml BalanceBalance 640 ml Exam NTERDISCIPLINARY TEAM CONFERENCE Physical Exam: Pulm- cta Abd- soft, old trach site healing BOWEL- Cont BLADDER-Cont SKIN- intact OT- DRESSING-min/max BATHING-min/max TOILETING-mod PT- BED MOBILITY- mod TRANSFERS-min/mod AMBULATION- min 75 feet A/P- Interdisciplinary team conference held today. Please see interdisciplinary sheet. Working toward d.c. on 10/05 with post discharge follow up of physical therapy, occupational therapy. Results/Medications Result Diagram: 09/25/18 0634 09/25/1834 Results 24 hrs Laboratory Tests Test 09/26/18 17:32 09/26/18 20:51 09/27/18 07:32 09/27/18 07:51 Bedside Glucose 99 138 63 L 82 Test 09/27/18 08:10 09/27/18 11:47 Bedside Glucose 108 174 Medications Current Medications Senna (Senokot) 1 tab HS PO Last administered on 09/25/18at 21:36; Admin Dose 1 TAB; Start 09/19/18 at 21:00 Magnesium Hydroxide (Milk Of Mag) 30 ml BID PRN PO CONSTIPATION; Start 09/19/18 at 14:30 Lactulose (Enulose) 20 gm DAILY PRN PO CONSTIPATION; Start 09/19/18 at 14:30 Miscellaneous Information (Pending [facility] Order For Wound Care) This patient jean-baptiste. .. PRN PRN XX WOUND CARE; Start 09/19/18 at 14:30 Diphenhydramine HCl (Benadryl) 12.5 mg Q4H PRN IV ITCHING; Start 09/19/18 at 14:30 Febuxostat (Uloric) 40 mg DAILY PO Last administered on 09/27/18at 09:29; Admin Dose 40 MG; Start 09/20/18 at 09:00 Heparin Sodium (Porcine) (Heparin (5000 Units/1ml)) 5,000 unit BID SC Last administered on 09/27/18 09:36; Admin Dose 5,000 UNIT; Start 09/19/18 at 21:00 Levalbuterol (Xopenex Neb) 0.63 mg Q6H RESP THERAPY HHN Last administered on 09/27/18 09:28; Admin Dose 0.63 MG; Start 09/19/18 at 20:00 Miconazole Nitrate (Miconazole 2% Cr) 1 applic BID TOP Last administered on 09/27/18 09:30; Admin Dose 1 APPLIC; Start 09/19/18 at 21:00 Nalbuphine HCl (Nubain) 2 mg Q6 PRN IV PRURITUS; Start 09/19/18 at 14:30 Phenol (Chloraseptic Throat [place]) 2 spray Q3 PRN MT SORE THROAT; Start 09/19/18 at 14:30 Spironolactone (Aldactone) 25 mg DAILY GTB Last administered on 09/20/18 08:29; Admin Dose 25 MG; Start 09/20/18 at 09:00; Status Hold Tamsulosin HCl (Flomax) 0.4 mg PC BREAKFAST PO Last administered on 09/27/18 07:52; Admin Dose 0.4 MG; Start 09/20/18 at 08:35 Tobramycin/ Dexamethasone (Tobradex Oph Drop) 1 drop QID BOTH EYES Last administered on 09/27/18 11:51; Admin Dose 1 DROP; Start 09/19/18 at 17:00 Diagnostic Test (Pha) (Accu-Chek) 1 ea 02 XX Last administered on 09/26/18 02:56; Admin Dose 1 EA; Start 09/20/18 at 02:00 Insulin Aspart (Novolog Insulin Pen) NOVOLOG *MILD* ALGORITHM WITH MEALS BEDTIME SC Last administered on 09/27/18 11:51; Admin Dose 1 UNIT; Start 09/19/18 at 17:35 Miscellaneous Information 1 ea NOTE XX ; Start 09/19/18 at 16:30 Glucose (Glutose) 15 gm Q15M PRN PO DECREASED GLUCOSE; Start 09/19/18 at 16:30 Glucose (Glutose) 22.5 gm Q15M PRN PO DECREASED GLUCOSE; Start 09/19/18 at 16:30 Dextrose (D50w Syringe) 25 ml Q15M PRN IV DECREASED GLUCOSE; Start 09/19/18 at 16:30 Dextrose (D50w Syringe) 50 ml Q15M PRN IV DECREASED GLUCOSE; Start 09/19/18 at 16:30 Glucagon (Glucagen) 1 mg Q15M PRN IM DECREASED GLUCOSE; Start 09/19/18 at 16:30 Glucose (Glutose) 15 gm Q15M PRN BUCCAL DECREASED GLUCOSE; Start 09/19/18 at 16:30 Bisacodyl (Dulcolax Supp) 10 mg DAILY PRN [place] CONSTIPATION; Start 09/20/18 at 01:00 Acetaminophen (Tylenol Liquid) 650 mg Q4H PRN PO MILD PAIN(1-3)OR ELEVATED TEMP Last administered on 09/25/18 20:06; Admin Dose 650 MG; Start 09/20/18 at 18:30 Cholecalciferol (Vitamin D) 1,000 unit DAILY PO Last administered on 09/27/18 09:29; Admin Dose 1,000 UNIT; Start 09/21/18 at 09:00 Diphenhydramine HCl (Benadryl Liquid Cup) 25 mg Q4H PRN PO ITCHING; Start 09/20/18 at 18:30 Docusate Sodium (Colace Liquid Cup) 100 mg BID PO Last administered on 09/27/18 09:28; Admin Dose 100 MG; Start 09/20/18 at 21:00 Folic Acid (Folic Acid) 1 mg DAILY PO Last administered on 09/27/18 09:29; Admin Dose 1 MG; Start 09/21/18 at 09:00 Glycopyrrolate (Robinul) 1 mg BID PO Last administered on 09/27/18 09:29; Admin Dose 1 MG; Start 09/20/18 at 21:00 Lansoprazole (Prevacid) 30 mg DAILY@06 PO Last administered on 09/27/18 06:53; Admin Dose 30 MG; Start 09/21/18 at 06:00 Levothyroxine Sodium (Synthroid) 137 mcg DAILY@06 PO Last administered on 09/27/18 06:53; Admin Dose 137 MCG; Start 09/21/18 at 06:00 Multivit/Ca Carb/ B Cmplx/FA/Prenat (Daphnie-Nikole) 1 tab DAILY PO Last administered on 09/27/18at 09:29; Admin Dose 1 TAB; Start 09/21/18 at 09:00 Prochlorperazine (Compazine) 5 mg Q6H PRN PO NAUSEA AND/OR VOMITING; Start 09/20/18 at 18:30 Propranolol HCl (Inderal) 20 mg TID PO Last administered on 09/27/18at 12:44; Admin Dose 20 MG; Start 09/20/18 at 21:00 Fluconazole (Diflucan) 100 mg DAILY PO Last administered on 09/27/18at 09:30; Admin Dose 100 MG; Start 09/21/18 at 13:00 Insulin Glargine (Lantus) 16 units DAILY@2000 SC ; Start 09/27/18 at 20:00 JESUS CHAMBERS MD Sep 27, 2018 14:02
[2018-09-27 19:28] VITALS: BP 94/61; PULSE 101; RESP 18
[2018-09-27] MEDS: SENNA TAB PO SCH (21:08)
[2018-09-27] MEDS: INSULIN GLARGINE [LANTus] (100 UNITS/ML) SYG SC SCH (21:25)
[2018-09-28 02:00] VITALS: BP 112/66; PULSE 97; RESP 18
[2018-09-28] MEDS: ACCU-CHEK XX SCH (02:00)
[2018-09-28] MEDS: LEVALBUTEROL (NEB) 0.63 MG/3 ML AMP HHN SCH ×4 (02:33→20:33)
[2018-09-28] MEDS: LEVOTHYROXINE 137 MCG TAB PO SCH (06:09)
[2018-09-28] MEDS: LANSOPRAZOLE 30 MG CAP PO SCH (06:09)
[2018-09-28 07:30] VITALS: BP 106/61; PULSE 99; RESP 18
[2018-09-28] MEDS: INSULIN ASPART [NOVOLOG] 3 ML PEN SC SCH ×4 (07:35→21:00)
[2018-09-28] MEDS: TAMSULOSIN (SR) 0.4 MG CAP PO SCH (08:16)
--- NOTE | 2018-09-28 08:44 | PN ---
DATE: 09/28/2018 SUBJECTIVE: The patient is stable, no events overnight. The patient noted to have some mild abdomin al distention but no nausea, vomiting. OBJECTIVE: VITAL SIGNS: Blood pressure is 112/66, respiration 18, pulse 97, temperature 98.2. HEENT: Head is normocephalic. NECK: Supple. HEART: Regular rate. LUNGS: Show diminished breath sounds at the base. ABDOMEN: Soft, nontender to palpation. No rebound or guarding. EXTREMITIES: Negative for clubbing, cyanosis, no edema. DERMATOLOGIC: No rashes. MUSCULOSKELETAL: No joint effusion. NEUROLOGIC: No change in exam. MEDICATIONS: Reviewed. LABORATORY DATA: Has been reviewed. ASSESSMENT AND PLAN: 1. Chronic respiratory failure. The patient is status post decannulation, currently stable. Contin ue to monitor. 2. Dysphagia, status post PEG removal. Continue to advance diet. 3. Mild abdominal distention. Etiology may be secondary to flatus. Continue to monitor. Consider KUB. 4. CKD. Renal function is stable. Continue medical management. 5. Anemia. Monitor hemoglobin and hematocrit levels. Will give Epogen as needed. 6. Mineral bone disorder, monitor calcium and phosphorus levels. 7. Atrial fibrillation, currently in sinus rhythm. Continue current treatment plan. 8. Hypothyroidism. Continue Synthroid. 9. Benign prostatic hypertrophy. Continue Uloric. 10. Constipation. Continue current bowel regimen. 11. History of hypertension. Blood pressure well controlled. 12. Diabetes. Continue current insulin regimen. No further hypoglycemic episodes. Dictated By: FARAZ GONGORA DO NR/NTS Conf#: [id number] DID#: [id number] CC: CHARLENE LYMAN DO; CAROLINA BENAVIDES MD; JESUS CHAMBERS MD;*EndCC*
[2018-09-28] MEDS: MULTIVIT/CA CARB/B CMPLX/FA TAB PO SCH (10:06)
[2018-09-28] MEDS: FOLIC ACID 1 MG TAB PO SCH (10:06)
[2018-09-28] MEDS: GLYCOPYRROLATE 1 MG TAB PO SCH ×2 (10:06→20:59)
[2018-09-28] MEDS: FEBUXOSTAT 40 MG TABLET PO SCH (10:06)
[2018-09-28] MEDS: HEPARIN 5,000 UNIT/1 ML VIAL SC SCH ×2 (10:06→21:07)
[2018-09-28] MEDS: DOCUSATE SODIUM 10 MG/ML (10ML CUP) PO SCH ×2 (10:06→20:59)
[2018-09-28] MEDS: FLUCONAZOLE 100 MG TAB PO SCH (10:06)
[2018-09-28] MEDS: CHOLECALCIFEROL 1,000 UNIT TAB PO SCH (10:06)
[2018-09-28] MEDS: TOBRAMYCIN/DEXAMETH 2.5 ML OPH BOTH EYES SCH ×4 (10:07→20:59)
[2018-09-28] MEDS: PROPRANOLOL 20 MG TAB PO SCH ×3 (10:07→20:59)
[2018-09-28] MEDS: MICONAZOLE 2% 30 GM CR TOP SCH ×2 (10:07→21:08)
[2018-09-28] MEDS ORDERED: CARBOXYMETHYLCELLULOSE 0.5% 0.4 ML OPH BOTH EYES PRN (12:00)
--- NOTE | 2018-09-28 12:26 | PN ---
Date/Time of Note Date/Time of Note DATE: 09/28/18 TIME: 12:25 Subjective Family at bed side, pleased with progress Objective Vital Signs Date Temp Pulse Resp B/P (MAP) Pulse Ox O2 O2 Flow FiO2 Time Delivery Rate 09/28/18 92 20 96 21 08:21 09/28/18 97.6 106/61 Room Air 07:30 (76) Intake and Output 09/27/18 09/27/18 09/28/18 1515:00 23:00 07:00 IntakeIntake Total 750 ml 1600 ml 800 ml OutputOutput Total 1000 ml BalanceBalance 750 ml 600 ml 800 ml Exam pulm-cta mod assist 90 feet Results/Medications Result Diagram: 09/25/1863309/25/18633 Results 24 hrs Laboratory Tests Test 09/27/18 17:40 09/27/18 21:07 09/28/18 02:34 09/28/18 08:13 Bedside Glucose 102 188 138 121 Test 09/28/18 11:46 Bedside Glucose 134 Medications Current Medications Senna (Senokot) 1 tab HS PO Last administered on 09/27/18at 21:08; Admin Dose 1 TAB; Start 09/19/18 at 21:00 Magnesium Hydroxide (Milk Of Mag) 30 ml BID PRN PO CONSTIPATION; Start 09/19/18 at 14:30 Lactulose (Enulose) 20 gm DAILY PRN PO CONSTIPATION; Start 09/19/18 at 14:30 Miscellaneous Information (Pending [facility]) This patient jean-baptiste... PRN PRN XX WOUND CARE; Start 09/19/18 at 14:30 Diphenhydramine HCl (Benadryl) 12.5 mg Q4H PRN IV ITCHING; Start 09/19/18 at 14:30 Febuxostat (Uloric) 40 mg DAILY PO Last administered on 09/28/18 10:06; Admin Dose 40 MG; Start 09/20/18 at 09:00 Heparin Sodium (Porcine) (Heparin (5000 Units/1ml)) 5,000 unit BID SC Last administered on 09/28/18 10:06; Admin Dose 5,000 UNIT; Start 09/19/18 at 21:00 Levalbuterol (Xopenex Neb) 0.63 mg Q6H RESP THERAPY HHN Last administered on 09/28/18 08:20; Admin Dose 0.63 MG; Start 09/19/18 at 20:00 Miconazole Nitrate (Miconazole 2% Cr) 1 applic BID TOP Last administered on 09/28/18 10:07; Admin Dose 1 APPLIC; Start 09/19/18 at 21:00 Nalbuphine HCl (Nubain) 2 mg Q6 PRN IV PRURITUS; Start 09/19/18 at 14:30 Phenol (Chloraseptic Throat [place]) 2 spray Q3 PRN MT SORE THROAT; Start 09/19/18 at 14:30 Spironolactone (Aldactone) 25 mg DAILY GTB Last administered on 09/20/18 08:29; Admin Dose 25 MG; Start 09/20/18 at 09:00; Status Hold Tamsulosin HCl (Flomax) 0.4 mg PC BREAKFAST PO Last administered on 09/28/18 08:16; Admin Dose 0.4 MG; Start 09/20/18 at 08:35 Tobramycin/ Dexamethasone (Tobradex Oph Drop) 1 drop QID BOTH EYES Last administered on 09/28/18 12:10; Admin Dose 1 DROP; Start 09/19/18 at 17:00 Diagnostic Test (Pha) (Accu-Chek) 1 ea 02 XX Last administered on 09/26/18 02:56; Admin Dose 1 EA; Start 09/20/18 at 02:00 Insulin Aspart (Novolog Insulin Pen) NOVOLOG *MILD* ALGORITHM WITH MEALS BEDTIME SC Last administered on 09/27/18 21:16; Admin Dose 1 UNIT; Start 09/19/18 at 17:35 Miscellaneous Information 1 ea NOTE XX ; Start 09/19/18 at 16:30 Glucose (Glutose) 15 gm Q15M PRN PO DECREASED GLUCOSE; Start 09/19/18 at 16:30 Glucose (Glutose) 22.5 gm Q15M PRN PO DECREASED GLUCOSE; Start 09/19/18 at 16:30 Dextrose (D50w Syringe) 25 ml Q15M PRN IV DECREASED GLUCOSE; Start 09/19/18 at 16:30 Dextrose (D50w Syringe) 50 ml Q15M PRN IV DECREASED GLUCOSE; Start 09/19/18 at 16:30 Glucagon (Glucagen) 1 mg Q15M PRN IM DECREASED GLUCOSE; Start 09/19/18 at 16:30 Glucose (Glutose) 15 gm Q15M PRN BUCCAL DECREASED GLUCOSE; Start 09/19/18 at 16:30 Bisacodyl (Dulcolax Supp) 10 mg DAILY PRN [place] CONSTIPATION; Start 09/20/18 at 01:00 Acetaminophen (Tylenol Liquid) 650 mg Q4H PRN PO MILD PAIN(1-3)OR ELEVATED TEMP Last administered on 09/25/18 20:06; Admin Dose 650 MG; Start 09/20/18 at 18:30 Cholecalciferol (Vitamin D) 1,000 unit DAILY PO Last administered on 09/28/18 10:06; Admin Dose 1,000 UNIT; Start 09/21/18 at 09:00 Diphenhydramine HCl (Benadryl Liquid Cup) 25 mg Q4H PRN PO ITCHING; Start 09/20/18 at 18:30 Docusate Sodium (Colace Liquid Cup) 100 mg BID PO Last administered on 09/28/18 10:06; Admin Dose 100 MG; Start 09/20/18 at 21:00 Folic Acid (Folic Acid) 1 mg DAILY PO Last administered on 09/28/18 10:06; Admin Dose 1 MG; Start 09/21/18 at 09:00 Glycopyrrolate (Robinul) 1 mg BID PO Last administered on 09/28/18 10:06; Admin Dose 1 MG; Start 09/20/18 at 21:00 Lansoprazole (Prevacid) 30 mg DAILY@06 PO Last administered on 09/28/18 06:09; Admin Dose 30 MG; Start 09/21/18 at 06:00 Levothyroxine Sodium (Synthroid) 137 mcg DAILY@06 PO Last administered on 09/28/18 06:09; Admin Dose 137 MCG; Start 09/21/18 at 06:00 Multivit/Ca Carb/ B Cmplx/FA/Prenat (Daphnie-Nikole) 1 tab DAILY PO Last administered on 09/28/18 10:06; Admin Dose 1 TAB; Start 09/21/18 at 09:00 Prochlorperazine (Compazine) 5 mg Q6H PRN PO NAUSEA AND/OR VOMITING; Start 09/20/18 at 18:30 Propranolol HCl (Inderal) 20 mg TID PO Last administered on 09/28/18 10:07; Admin Dose 20 MG; Start 09/20/18 at 21:00 Fluconazole (Diflucan) 100 mg DAILY PO Last administered on 09/28/18 10:06; Admin Dose 100 MG; Start 09/21/18 at 13:00 Insulin Glargine (Lantus) 16 units DAILY@2000 SC Last administered on 09/27/18 21:25; Admin Dose 16 UNITS; Start 09/27/18 at 20:00 Eye Lubricant (Refresh Plus) 1 drop QID PRN BOTH EYES DRY EYES; Start 09/28/18 at 12:00 Assessment/Plan Additional Assessment/Plan Rehab- Critical illness myopathy; debility - S/p acute respiratory failure Good progress with rehab, current status and dc planning d/w family Pulm- s/p resp failure, right empyema and thoracotomy with decortication, COPD and tracheostomy- s/p decannulation doing well Chronic atrial fibrillation. Chronic kidney disease. Anemia. BPH. Hypertension. Diabetes mellitus. Impairments in hearing. JESUS CHAMBERS MD Sep 28, 2018 12:26
--- NOTE | 2018-09-28 13:26 | CONS ---
Consult Date/Type/Reason Admit Date/Time Sep 19, 2018 at 13:50 Initial Consult Date 09/21/18 Type of Consultation: cv Requesting Provider: FARAZ GONGORA DO Date/Time of Note DATE: 09/28/18 TIME: 13:26 Subjective Cardiology follow-up progress Subjective: Discussed with the staff. Patient with no chest pain or pressure. He continues to cooperate with physical therapy. Breathing appears to be stabilizing Objective: General: Elderly gentleman in no acute distress HEENT: NC/AT. pupils are equal. round. NECK: Status with previous trach which is closed. no stridor. CV: Irregularly regular. systolic murmur; no gallop or rubs. PULM: no wheezing or rhonchi. GI: SOFT, NT, ND, no rebound or guarding . Extremity: trace B/L LE edema. no clubbing. neuro: awake and alert, Psych: calm and pleasant rectal: deferred : normal [id number] 2018 which was personally reviewed shows: Normal left ventricular cavity size. Moderate concentric left ventricular hypertrophy. Severe global left ventricular systolic dysfunction. Ejection fraction is visually estimated at 35-40 %. Tissue Doppler/Mitral Doppler indices are indeterminate in this study due to the presence of . Mitral valve leaflets appear mildly thickened. Mild mitral annular calcification. Mild mitral valve regurgitation. No significant aortic stenosis or insufficiency. Aortic cusps appear mildly calcified. Normal appearance of the tricuspid valve. Estimated peak PA systolic pressure 30 mmHg. There is trace tricuspid regurgitation. There is mild enlargement of left atrium. Trivial pericardial effusion. Objective Vitals Vital Signs Date Temp Pulse Resp B/P (MAP) Pulse Ox O2 O2 Flow FiO2 Time Delivery Rate 09/28/18 92 20 96 21 08:21 09/28/18 97.6 106/61 Room Air 07:30 (76) Intake and Output 09/27/18 09/27/18 09/28/18 1515:00 23:00 07:00 IntakeIntake Total 750 ml 1600 ml 800 ml OutputOutput Total 1000 ml BalanceBalance 750 ml 600 ml 800 ml Results/Medications Result Diagram: 09/25/18 0634 09/25/18 0634 Results 24 hrs Laboratory Tests Test 09/27/18 17:40 09/27/18 21:07 09/28/18 02:34 09/28/18 08:13 Bedside Glucose 102 188 138 121 Test 09/28/18 11:46 Bedside Glucose 134 Home Meds Active Scripts Front Wheel Walker* (Front Wheel Walker*) 1 Each Dme, 1 EACH [facility] DIRECTED, #1 DME 0 Refills Prov:TC ZAMORA DO 05/28/17 Sodium Polystyrene Sulfonate* (Kayexalate*) 15 Gm/60 Ml Susp, 30 GM PO each day for 2 Days, ML Prov:TC ZAMORA DO 05/28/17 Medications Current Medications Senna (Senokot) 1 tab HS PO Last administered on 09/27/18 21:08; Admin Dose 1 TAB; Start 09/19/18 at 21:00 Magnesium Hydroxide (Milk Of Mag) 30 ml BID PRN PO CONSTIPATION; Start 09/19/18 at 14:30 Lactulose (Enulose) 20 gm DAILY PRN PO CONSTIPATION; Start 09/19/18 at 14:30 Miscellaneous Information (Pending [facility] Order For Wound Care) This patient jean-baptiste... PRN PRN XX WOUND CARE; Start 09/19/18 at 14:30 Diphenhydramine HCl (Benadryl) 12.5 mg Q4H PRN IV ITCHING; Start 09/19/18 at 14:30 Febuxostat (Uloric) 40 mg DAILY PO Last administered on 09/28/18 10:06; Admin Dose 40 MG; Start 09/20/18 at 09:00 Heparin Sodium (Porcine) (Heparin (5000 Units/1ml)) 5,000 unit BID SC Last administered on 09/28/18 10:06; Admin Dose 5,000 UNIT; Start 09/19/18 at 21:00 Levalbuterol (Xopenex Neb) 0.63 mg Q6H RESP THERAPY HHN Last administered on 09/28/18 08:20; Admin Dose 0.63 MG; Start 09/19/18 at 20:00 Miconazole Nitrate (Miconazole 2% Cr) 1 applic BID TOP Last administered on 09/28/18 10:07; Admin Dose 1 APPLIC; Start 09/19/18 at 21:00 Nalbuphine HCl (Nubain) 2 mg Q6 PRN IV PRURITUS; Start 09/19/18 at 14:30 Phenol (Chloraseptic Throat [place]) 2 spray Q3 PRN MT SORE THROAT; Start 09/19/18 at 14:30 Spironolactone (Aldactone) 25 mg DAILY GTB Last administered on 09/20/18at 08:29; Admin Dose 25 MG; Start 09/20/18 at 09:00; Status Hold Tamsulosin HCl (Flomax) 0.4 mg PC BREAKFAST PO Last administered on 09/28/18 08:16; Admin Dose 0.4 MG; Start 09/20/18 at 08:35 Tobramycin/ Dexamethasone (Tobradex Oph Drop) 1 drop QID BOTH EYES Last administered on 09/28/18 12:10; Admin Dose 1 DROP; Start 09/19/18 at 17:00 Diagnostic Test (Pha) (Accu-Chek) 1 ea 02 XX Last administered on 09/26/18 02: 56; Admin Dose 1 EA; Start 09/20/18 at 02:00 Insulin Aspart (Novolog Insulin Pen) NOVOLOG *MILD* ALGORITHM WITH MEALS BEDTIME SC Last administered on 09/27/18 21:16; Admin Dose 1 UNIT; Start 09/19/18 at 17:35 Miscellaneous Information 1 ea NOTE XX ; Start 09/19/18 at 16:30 Glucose (Glutose) 15 gm Q15M PRN PO DECREASED GLUCOSE; Start 09/19/18 at 16:30 Glucose (Glutose) 22.5 gm Q15M PRN PO DECREASED GLUCOSE; Start 09/19/18 at 16:30 Dextrose (D50w Syringe) 25 ml Q15M PRN IV DECREASED GLUCOSE; Start 09/19/18 at 16:30 Dextrose (D50w Syringe) 50 ml Q15M PRN IV DECREASED GLUCOSE; Start 09/19/18 at 16:30 Glucagon (Glucagen) 1 mg Q15M PRN IM DECREASED GLUCOSE; Start 09/19/18 at 16:30 Glucose (Glutose) 15 gm Q15M PRN BUCCAL DECREASED GLUCOSE; Start 09/19/18 at 16:30 Bisacodyl (Dulcolax Supp) 10 mg DAILY PRN [place] CONSTIPATION; Start 09/20/18 at 01:00 Acetaminophen (Tylenol Liquid) 650 mg Q4H PRN PO MILD PAIN(1-3)OR ELEVATED TEMP Last administered on 09/25/18 20:06; Admin Dose 650 MG; Start 09/20/18 at 18:30 Cholecalciferol (Vitamin D) 1,000 unit DAILY PO Last administered on 09/28/18 1 0:06; Admin Dose 1,000 UNIT; Start 09/21/18 at 09:00 Diphenhydramine HCl (Benadryl Liquid Cup) 25 mg Q4H PRN PO ITCHING; Start 09/20/18 at 18:30 Docusate Sodium (Colace Liquid Cup) 100 mg BID PO Last administered on 09/28/18 10:06; Admin Dose 100 MG; Start 09/20/18 at 21:00 Folic Acid (Folic Acid) 1 mg DAILY PO Last administered on 09/28/18 10:06; Admin Dose 1 MG; Start 09/21/18 at 09:00 Glycopyrrolate (Robinul) 1 mg BID PO Last administered on 09/28/18 10:06; Admin Dose 1 MG; Start 09/20/18 at 21:00 Lansoprazole (Prevacid) 30 mg DAILY@06 PO Last administered on 09/28/18 06:09; Admin Dose 30 MG; Start 09/21/18 at 06:00 Levothyroxine Sodium (Synthroid) 137 mcg DAILY@06 PO Last administered on 09/28/18 06:09; Admin Dose 137 MCG; Start 09/21/18 at 06:00 Multivit/Ca Carb/ B Cmplx/FA/Prenat (Daphnie-Nikole) 1 tab DAILY PO Last administered on 09/28/18 10:06; Admin Dose 1 TAB; Start 09/21/18 at 09:00 Prochlorperazine (Compazine) 5 mg Q6H PRN PO NAUSEA AND/OR VOMITING; Start 09/20/18 at 18:30 Propranolol HCl (Inderal) 20 mg TID PO Last administered on 09/28/18 10:07; Admin Dose 20 MG; Start 09/20/18 at 21:00 Fluconazole (Diflucan) 100 mg DAILY PO Last administered on 09/28/18 10:06; Admin Dose 100 MG; Start 09/21/18 at 13:00 Insulin Glargine (Lantus) 16 units DAILY@2000 SC Last administered on 09/27/18 21:25; Admin Dose 16 UNITS; Start 09/27/18 at 20:00 Eye Lubricant (Refresh Plus) 1 drop QID PRN BOTH EYES DRY EYES; Start 09/28/18 at 12:00 Assessment/Plan Hospital Course (Demo Recall) 1. Atrial fibrillation: Heart rate controlled. Unable to fully anticoagulated due to concern about the anemia and OB positive stool 2. Congestive heart failure/cardiomyopathy: Chronic secondary systolic heart failure and stable now 3. Status post hypoxemic respiratory failure and tracheostomy: Currently trach is capped 4. Anemia and OB positive stool 5. Debility 6. This was empyema/pneumonia 7. dysphasia status post PEG placement 8. Renal insufficiency Recommendation: Continue with the propranolol for heart rate and blood pressure control Respiratory care as needed. Nutritional support to be continued Currently patient off of anticoagulation due to concern about the severe anemia and GI bleeding cont With physical therapy and rehab Renal management as per Dr. Gongora and associate Thank you for his referral. We will continue to follow along with MARCO A NAJERA MD [facility] MARCO A NAJERA MD Sep 28, 2018 13:26
[2018-09-28 14:00] VITALS: BP 111/59; PULSE 97; RESP 18
[2018-09-28 19:25] VITALS: BP 128/77; PULSE 74; RESP 18
[2018-09-28] MEDS: SENNA TAB PO SCH (20:59)
[2018-09-28] MEDS: INSULIN GLARGINE [LANTus] (100 UNITS/ML) SYG SC SCH (21:06)
[2018-09-29 02:00] VITALS: BP 114/82; PULSE 82; RESP 18
[2018-09-29] MEDS: ACCU-CHEK XX SCH (02:00)
[2018-09-29] MEDS: LEVALBUTEROL (NEB) 0.63 MG/3 ML AMP HHN SCH ×4 (02:22→19:44)
[2018-09-29] MEDS: LANSOPRAZOLE 30 MG CAP PO SCH (06:31)
[2018-09-29] MEDS: LEVOTHYROXINE 137 MCG TAB PO SCH (06:31)
[2018-09-29 07:00] VITALS: BP 81/59; PULSE 99; RESP 17
[2018-09-29] MEDS: INSULIN ASPART [NOVOLOG] 3 ML PEN SC SCH ×4 (07:35→20:55)
[2018-09-29] MEDS: FLUCONAZOLE 100 MG TAB PO SCH (09:18)
[2018-09-29] MEDS: TAMSULOSIN (SR) 0.4 MG CAP PO SCH (09:18)
[2018-09-29] MEDS: MULTIVIT/CA CARB/B CMPLX/FA TAB PO SCH (09:18)
[2018-09-29] MEDS: TOBRAMYCIN/DEXAMETH 2.5 ML OPH BOTH EYES SCH ×4 (09:19→20:53)
[2018-09-29] MEDS: DOCUSATE SODIUM 10 MG/ML (10ML CUP) PO SCH ×2 (09:19→20:54)
[2018-09-29] MEDS: FEBUXOSTAT 40 MG TABLET PO SCH (09:19)
[2018-09-29] MEDS: CHOLECALCIFEROL 1,000 UNIT TAB PO SCH (09:19)
[2018-09-29] MEDS: GLYCOPYRROLATE 1 MG TAB PO SCH ×2 (09:19→20:50)
[2018-09-29] MEDS: FOLIC ACID 1 MG TAB PO SCH (09:20)
[2018-09-29] MEDS: PROPRANOLOL 20 MG TAB PO SCH ×3 (09:20→20:54)
[2018-09-29] MEDS: HEPARIN 5,000 UNIT/1 ML VIAL SC SCH ×2 (09:21→20:52)
[2018-09-29] MEDS: MICONAZOLE 2% 30 GM CR TOP SCH ×2 (09:22→21:01)
--- NOTE | 2018-09-29 09:24 | PN ---
Date/Time of Note Date/Time of Note DATE: 09/29/18 TIME: 09:22 Subjective AWAKE ALERT NO C/O Objective Vital Signs Date Temp Pulse Resp B/P (MAP) Pulse Ox O2 O2 Flow FiO2 Time Delivery Rate 09/29/18 79 18 95 21 08:28 09/29/18 97.9 114/82 Room Air 02:00 (93) Intake and Output 09/28/18 09/28/18 09/29/18 1515:00 23:00 07:00 IntakeIntake Total 200 ml 760 ml 790 ml OutputOutput Total 100 ml 400 ml BalanceBalance 200 ml 660 ml 390 ml Exam LUNGS CTA COR RRR MOTOR FAIR CLOF GAIT AND XT MOD A Results/Medications Result Diagram: 09/29/18 0804 09/29/18 0804 Results 24 hrs Laboratory Tests Test 09/28/18 11:46 09/28/18 17:32 09/28/18 20:46 09/29/18 07:37 Bedside Glucose 134 137 145 130 Test 09/29/18 08:04 White Blood Count 6.3 Red Blood Count 3.63 L Hemoglobin 10.6 L Hematocrit 33.8 L Mean Corpuscular Volume 93.1 Mean Corpuscular 29.2 Hemoglobin Mean Corpuscular 31.4 L Hemoglobin Concent Red Cell Distribution 16.9 H Width Platelet Count 176 Mean Platelet Volume 10.9 H Immature Granulocytes % 3.800 H Neutrophils % 57.6 Lymphocytes % 23.5 Monocytes % 13.7 H Eosinophils % 0.9 Basophils % 0.5 Nucleated Red Blood 0.0 Cells % Immature Granulocytes # 0.240 H Neutrophils # 3.6 Lymphocytes # 1.5 Monocytes # 0.9 Eosinophils # 0.1 Basophils # 0.0 Nucleated Red Blood 0.0 Cells # Sodium Level 141 Potassium Level 5.4 H Chloride Level 107 Carbon Dioxide Level 25 Anion Gap 9 Blood Urea Nitrogen 83 H Creatinine 1.73 H Est Glomerular Filtrat Rate mL/min Glucose Level 115 Calcium Level 9.8 Phosphorus Level 4.6 Magnesium Level 2.0 Medications Current Medications Senna (Senokot) 1 tab HS PO Last administered on 09/28/18at 20:59; Admin Dose 1 TAB; Start 09/19/18 at 21:00 Magnesium Hydroxide (Milk Of Mag) 30 ml BID PRN PO CONSTIPATION; Start 09/19/18 at 14:30 Lactulose (Enulose) 20 gm DAILY PRN PO CONSTIPATION; Start 09/19/18 at 14:30 Miscellaneous Information (Pending [facility] Order For Wound Care) This patient jean-baptiste... PRN PRN XX WOUND CARE; Start 09/19/18 at 14:30 Diphenhydramine HCl (Benadryl) 12.5 mg Q4H PRN IV ITCHING; Start 09/19/18 at 14:30 Febuxostat (Uloric) 40 mg DAILY PO Last administered on 09/28/18 10:06; Admin Dose 40 MG; Start 09/20/18 at 09:00 Heparin Sodium (Porcine) (Heparin (5000 Units/1ml)) 5,000 unit BID SC Last administered on 09/28/18 21:07; Admin Dose 5,000 UNIT; Start 09/19/18 at 21:00 Levalbuterol (Xopenex Neb) 0.63 mg Q6H RESP THERAPY HHN Last administered on 09/29/18 08:28; Admin Dose 0.63 MG; Start 09/19/18 at 20:00 Miconazole Nitrate (Miconazole 2% Cr) 1 applic BID TOP Last administered on 09/28/18 21:08; Admin Dose 1 APPLIC; Start 09/19/18 at 21:00 Nalbuphine HCl (Nubain) 2 mg Q6 PRN IV PRURITUS; Start 09/19/18 at 14:30 Phenol (Chloraseptic Throat [place]) 2 spray Q3 PRN MT SORE THROAT; Start 09/19/18 at 14:30 Spironolactone (Aldactone) 25 mg DAILY GTB Last administered on 09/20/18 08:29; Admin Dose 25 MG; Start 09/20/18 at 09:00; Status Hold Tamsulosin HCl (Flomax) 0.4 mg PC BREAKFAST PO Last administered on 09/28/18 08:16; Admin Dose 0.4 MG; Start 09/20/18 at 08:35 Tobramycin/ Dexamethasone (Tobradex Oph Drop) 1 drop QID BOTH EYES Last administered on 09/28/18 20:59; Admin Dose 1 DROP; Start 09/19/18 at 17:00 Diagnostic Test (Pha) (Accu-Chek) 1 ea 02 XX Last administered on 09/26/18 02:56; Admin Dose 1 EA; Start 09/20/18 at 02:00 Insulin Aspart (Novolog Insulin Pen) NOVOLOG *MILD* ALGORITHM WITH MEALS BEDTIME SC Last administered on 09/27/18 21:16; Admin Dose 1 UNIT; Start 09/19/18 at 17:35 Miscellaneous Information 1 ea NOTE XX ; Start 09/19/18 at 16:30 Glucose (Glutose) 15 gm Q15M PRN PO DECREASED GLUCOSE; Start 09/19/18 at 16:30 Glucose (Glutose) 22.5 gm Q15M PRN PO DECREASED GLUCOSE; Start 09/19/18 at 16:30 Dextrose (D50w Syringe) 25 ml Q15M PRN IV DECREASED GLUCOSE; Start 09/19/18 at 16:30 Dextrose (D50w Syringe) 50 ml Q15M PRN IV DECREASED GLUCOSE; Start 09/19/18 at 16:30 Glucagon (Glucagen) 1 mg Q15M PRN IM DECREASED GLUCOSE; Start 09/19/18 at 16:30 Glucose (Glutose) 15 gm Q15M PRN BUCCAL DECREASED GLUCOSE; Start 09/19/18 at 16:30 Bisacodyl (Dulcolax Supp) 10 mg DAILY PRN [place] CONSTIPATION; Start 09/20/18 at 01:00 Acetaminophen (Tylenol Liquid) 650 mg Q4H PRN PO MILD PAIN(1-3)OR ELEVATED TEMP Last administered on 09/25/18 20:06; Admin Dose 650 MG; Start 09/20/18 at 18:30 Cholecalciferol (Vitamin D) 1,000 unit DAILY PO Last administered on 09/28/18 10:06; Admin Dose 1,000 UNIT; Start 09/21/18 at 09:00 Diphenhydramine HCl (Benadryl Liquid Cup) 25 mg Q4H PRN PO ITCHING; Start 09/20/18 at 18:30 Docusate Sodium (Colace Liquid Cup) 100 mg BID PO Last administered on 09/28/18 20:59; Admin Dose 100 MG; Start 09/20/18 at 21:00 Folic Acid (Folic Acid) 1 mg DAILY PO Last administered on 09/28/18 10:06; Admin Dose 1 MG; Start 09/21/18 at 09:00 Glycopyrrolate (Robinul) 1 mg BID PO Last administered on 09/28/18 20:59; Admin Dose 1 MG; Start 09/20/18 at 21:00 Lansoprazole (Prevacid) 30 mg DAILY@06 PO Last administered on 09/29/18 06:31; Admin Dose 30 MG; Start 09/21/18 at 06:00 Levothyroxine Sodium (Synthroid) 137 mcg DAILY@06 PO Last administered on 09/29/18 06:31; Admin Dose 137 MCG; Start 09/21/18 at 06:00 Multivit/Ca Carb/ B Cmplx/FA/Prenat (Daphnie-Nikole) 1 tab DAILY PO Last administered on 09/28/18 10:06; Admin Dose 1 TAB; Start 09/21/18 at 09:00 Prochlorperazine (Compazine) 5 mg Q6H PRN PO NAUSEA AND/OR VOMITING; Start 09/20/18 at 18:30 Propranolol HCl (Inderal) 20 mg TID PO Last administered on 09/28/18 20:59; Admin Dose 20 MG; Start 09/20/18 at 21:00 Fluconazole (Diflucan) 100 mg DAILY PO Last administered on 09/28/18 10:06; Admin Dose 100 MG; Start 09/21/18 at 13:00 Insulin Glargine (Lantus) 16 units DAILY@2000 SC Last administered on 09/28/18 21:06; Admin Dose 16 UNITS; Start 09/27/18 at 20:00 Eye Lubricant (Refresh Plus) 1 drop QID PRN BOTH EYES DRY EYES; Start 09/28/18 at 12:00 Assessment/Plan Additional Assessment/Plan Rehab- Critical illness myopathy; debility - S/p acute respiratory failure Good progress with rehab, current status and dc planning d/w family. CONTINUE THERAPEUTIC INTERVENTIONS Pulm- s/p resp failure, right empyema and thoracotomy with decortication, COPD and tracheostomy- s/p decannulation doing well Chronic atrial fibrillation. Chronic kidney disease. Anemia.H/H STABLE BPH. Hypertension. Diabetes mellitus. Impairments in hearing. ELEVATED K RECHECK BMP TOMORROW RENAL FOLLOWING XIMENA CHAMBERS MD Sep 29, 2018 09:24
--- NOTE | 2018-09-29 13:04 | CONS ---
Assessment/Plan Assessment/Plan Assessment/Plan (Daily) 1. Chronic respiratory failure. The patient is status post decannulation, currently stable. Continue to monitor. 2. Dysphagia, status post PEG removal. Continue to advance diet. 3. Mild abdominal distention. Etiology may be secondary to flatus. Continue to monitor. Consider KUB. 4. Mike on CKD. stop aldactone. monitor renal function 5. Anemia. Monitor hemoglobin and hematocrit levels. Will give Epogen as needed. 6. Mineral bone disorder, monitor calcium and phosphorus levels. 7. Atrial fibrillation, currently in sinus rhythm. Continue current treatment plan. 8. Hypothyroidism. Continue Synthroid. 9. Benign prostatic hypertrophy. Continue Uloric. 10. Constipation. Continue current bowel regimen. 11. History of hypertension. Blood pressure well controlled. 12. Diabetes. Continue current insulin regimen. No further hypoglycemic episodes. 13. hyperkalemia: kayexalate. stop aldactone Consultation Date/Type/Reason Admit Date/Time Sep 19, 2018 at 13:50 Initial Consult Date 09/21/18 Requesting Provider: FARAZ GONGORA DO Date/Time of Note DATE: 09/29/18 TIME: 13:03 24 HR Interval Summary Free Text/Dictation denies n/v, shortness of breath or urinary issues d/w rn gen nad cv rrr pulm ctab abd soft, nd, nt +bs ext: no edema Exam/Review of Systems Exam Vitals Vital Signs Date Temp Pulse Resp B/P (MAP) Pulse Ox O2 O2 Flow FiO2 Time Delivery Rate 09/29/18 79 18 95 21 08:28 09/29/18 98.0 81/59 (66) Room Air 07:00 Intake and Output 09/28/18 09/28/18 09/29/18 1515:00 23:00 07:00 IntakeIntake Total 200 ml 760 ml 790 ml OutputOutput Total 100 ml 400 ml BalanceBalance 200 ml 660 ml 390 ml Results Result Diagram: 09/29/18 0804 09/29/18 0804 Results 24hrs Laboratory Tests Test 09/28/18 17:32 09/28/18 20:46 09/29/18 07:37 09/29/18 08:04 Bedside Glucose 137 145 130 White Blood Count 6.3 Red Blood Count 3.63 L Hemoglobin 10.6 L Hematocrit 33.8 L Mean Corpuscular Volume 93.1 Mean Corpuscular 29.2 Hemoglobin Mean Corpuscular 31.4 L Hemoglobin Concent Red Cell Distribution 16.9 H Width Platelet Count 176 Mean Platelet Volume 10.9 H Immature Granulocytes % 3.800 H Neutrophils % 57.6 Lymphocytes % 23.5 Monocytes % 13.7 H Eosinophils % 0.9 Basophils % 0.5 Nucleated Red Blood 0.0 Cells % Immature Granulocytes # 0.240 H Neutrophils # 3.6 Lymphocytes # 1.5 Monocytes # 0.9 Eosinophils # 0.1 Basophils # 0.0 Nucleated Red Blood 0.0 Cells # Sodium Level 141 Potassium Level 5.4 H Chloride Level 107 Carbon Dioxide Level 25 Anion Gap 9 Blood Urea Nitrogen 83 H Creatinine 1.73 H Est Glomerular Filtrat Rate mL/min Glucose Level 115 Calcium Level 9.8 Phosphorus Level 4.6 Magnesium Level 2.0 Test 09/29/18 11:57 Bedside Glucose 136 Medications Medication Current Medications Senna (Senokot) 1 tab HS PO Last administered on 09/28/18at 20:59; Admin Dose 1 TAB; Start 09/19/18 at 21:00 Magnesium Hydroxide (Milk Of Mag) 30 ml BID PRN PO CONSTIPATION; Start 09/19/18 at 14:30 Lactulose (Enulose) 20 gm DAILY PRN PO CONSTIPATION; Start 09/19/18 at 14:30 Miscellaneous Information (Pending [facility] Order For Wound Care) This patient jean-baptiste... PRN PRN XX WOUND CARE; Start 09/19/18 at 14:30 Diphenhydramine HCl (Benadryl) 12.5 mg Q4H PRN IV ITCHING; Start 09/19/18 at 14:30 Febuxostat (Uloric) 40 mg DAILY PO Last administered on 09/29/18 09:19; Admin Dose 40 MG; Start 09/20/18 at 09:00 Heparin Sodium (Porcine) (Heparin (5000 Units/1ml)) 5,000 unit BID SC Last administered on 09/29/18 09:21; Admin Dose 5,000 UNIT; Start 09/19/18 at 21:00 Levalbuterol (Xopenex Neb) 0.63 mg Q6H RESP THERAPY HHN Last administered on 09/29/18 08:28; Admin Dose 0.63 MG; Start 09/19/18 at 20:00 Miconazole Nitrate (Miconazole 2% Cr) 1 applic BID TOP Last administered on 09/29at 09:22; Admin Dose 1 APPLIC; Start 09/19/18 at 21:00 Nalbuphine HCl (Nubain) 2 mg Q6 PRN IV PRURITUS; Start 09/19/18 at 14:30 Phenol (Chloraseptic Throat [place]) 2 spray Q3 PRN MT SORE THROAT; Start 09/19/18 at 14:30 Spironolactone (Aldactone) 25 mg DAILY GTB Last administered on 09/20/18at 08 :29; Admin Dose 25 MG; Start 09/20/18 at 09:00; Status Hold Tamsulosin HCl (Flomax) 0.4 mg PC BREAKFAST PO Last administered on 09/29/18 09:18; Admin Dose 0.4 MG; Start 09/20/18 at 08:35 Tobramycin/ Dexamethasone (Tobradex Oph Drop) 1 drop QID BOTH EYES Last administered on 09/29/18 12:18; Admin Dose 1 DROP; Start 09/19/18 at 17:00 Diagnostic Test (Pha) (Accu-Chek) 1 ea 02 XX Last administered on 09/26/18at 02:56; Admin Dose 1 EA; Start 09/20/18 at 02:00 Insulin Aspart (Novolog Insulin Pen) NOVOLOG *MILD* ALGORITHM WITH MEALS BEDTIME SC Last administered on 09/27/18at 21:16; Admin Dose 1 UNIT; Start 09/19/18 at 17:35 Miscellaneous Information 1 ea NOTE XX ; Start 09/19/18 at 16:30 Glucose (Glutose) 15 gm Q15M PRN PO DECREASED GLUCOSE; Start 09/19/18 at 16:30 Glucose (Glutose) 22.5 gm Q15M PRN PO DECREASED GLUCOSE; Start 09/19/18 at 16:30 Dextrose (D50w Syringe) 25 ml Q15M PRN IV DECREASED GLUCOSE; Start 09/19/18 at 16:30 Dextrose (D50w Syringe) 50 ml Q15M PRN IV DECREASED GLUCOSE; Start 09/19/18 at 16:30 Glucagon (Glucagen) 1 mg Q15M PRN IM DECREASED GLUCOSE; Start 09/19/18 at 16:30 Glucose (Glutose) 15 gm Q15M PRN BUCCAL DECREASED GLUCOSE; Start 09/19/18 at 16:30 Bisacodyl (Dulcolax Supp) 10 mg DAILY PRN [place] CONSTIPATION; Start 09/20/18 at 01:00 Acetaminophen (Tylenol Liquid) 650 mg Q4H PRN PO MILD PAIN(1-3)OR ELEVATED TEMP Last administered on 09/25/18 20:06; Admin Dose 650 MG; Start 09/20/18 at 18:30 Cholecalciferol (Vitamin D) 1,000 unit DAILY PO Last administered on 09/29/18 09:19; Admin Dose 1,000 UNIT; Start 09/21/18 at 09:00 Diphenhydramine HCl (Benadryl Liquid Cup) 25 mg Q4H PRN PO ITCHING; Start 09/20/18 at 18:30 Docusate Sodium (Colace Liquid Cup) 100 mg BID PO Last administered on 09/29/18 09:19; Admin Dose 100 MG; Start 09/20/18 at 21:00 Folic Acid (Folic Acid) 1 mg DAILY PO Last administered on 09/29/18 09:20; Admin Dose 1 MG; Start 09/21/18 at 09:00 Glycopyrrolate (Robinul) 1 mg BID PO Last administered on 09/29/18 09:19; Admin Dose 1 MG; Start 09/20/18 at 21:00 Lansoprazole (Prevacid) 30 mg DAILY@06 PO Last administered on 09/29/18 06:31; Admin Dose 30 MG; Start 09/21/18 at 06:00 Levothyroxine Sodium (Synthroid) 137 mcg DAILY@06 PO Last administered on 09/29/18 06:31; Admin Dose 137 MCG; Start 09/21/18 at 06:00 Multivit/Ca Carb/ B Cmplx/FA/Prenat (Daphnie-Nikole) 1 tab DAILY PO Last administered on 09/29/18 09:18; Admin Dose 1 TAB; Start 09/21/18 at 09:00 Prochlorperazine (Compazine) 5 mg Q6H PRN PO NAUSEA AND/OR VOMITING; Start 09/20/18 at 18:30 Propranolol HCl (Inderal) 20 mg TID PO Last administered on 09/29/18 12:18; Ad min Dose 20 MG; Start 3/28/19 at 21:00 Fluconazole (Diflucan) 100 mg DAILY PO Last administered on 09/29/18at 09:18; Admin Dose 100 MG; Start 09/21/18 at 13:00 Insulin Glargine (Lantus) 16 units DAILY@2000 SC Last administered on 09/28/18at 21:06; Admin Dose 16 UNITS; Start 09/27/18 at 20:00 Eye Lubricant (Refresh Plus) 1 drop QID PRN BOTH EYES DRY EYES Last administered on 09/29/18at 09:19; Admin Dose 1 DROP; Start 09/28/18 at 12:00 RONALD ABARCA MD Sep 29, 2018 13:04
[2018-09-29] MEDS ORDERED: NA POLYST SULFON 15 GM/60 ML BTL PO ONE (13:30)
[2018-09-29 14:00] VITALS: BP 102/57; PULSE 87; RESP 20
[2018-09-29 20:24] VITALS: BP 87/52; PULSE 98; RESP 19
[2018-09-29 20:42] VITALS: BP 105/59; PULSE 73; RESP 18
[2018-09-29] MEDS: INSULIN GLARGINE [LANTus] (100 UNITS/ML) SYG SC SCH (20:53)
[2018-09-29] MEDS: SENNA TAB PO SCH (20:55)
[2018-09-30] MEDS: LEVALBUTEROL (NEB) 0.63 MG/3 ML AMP HHN SCH ×4 (01:33→19:13)
[2018-09-30] MEDS: ACCU-CHEK XX SCH (02:00)
[2018-09-30 02:46] VITALS: BP 108/66; PULSE 102; RESP 19
[2018-09-30] MEDS: LANSOPRAZOLE 30 MG CAP PO SCH (06:51)
[2018-09-30] MEDS: LEVOTHYROXINE 137 MCG TAB PO SCH (06:51)
[2018-09-30 07:00] VITALS: BP 87/66; PULSE 62; RESP 18
[2018-09-30] MEDS: INSULIN ASPART [NOVOLOG] 3 ML PEN SC SCH ×4 (07:35→21:00)
--- NOTE | 2018-09-30 07:48 | PN ---
Date/Time of Note Date/Time of Note DATE: 09/30/18 TIME: 07:46 Subjective AWAKE ALERT - SOB Objective Vital Signs Date Temp Pulse Resp B/P (MAP) Pulse Ox O2 O2 Flow FiO2 Time Delivery Rate 09/30/18 99.1 102 19 108/66 96 Room Air 02:46 (80) 09/30/18 21 01:33 Intake and Output 09/29/18 09/29/18 09/30/18 1515:00 23:00 07:00 IntakeIntake Total 200 ml 800 ml 240 ml OutputOutput Total 450 ml 500 ml BalanceBalance 200 ml 350 ml -260 ml Exam LUNGS CTA COR DISTANT - EDEMA CLOF MOD A XT AND GAIT Results/Medications Result Diagram: 09/29/18 0804 09/30/18 0608 Results 24 hrs Laboratory Tests Test 09/29/18 08:04 09/29/18 11:57 09/29/18 17:35 09/29/18 20:49 White Blood Count 6.3 Red Blood Count 3.63 L Hemoglobin 10.6 L Hematocrit 33.8 L Mean Corpuscular Volume 93.1 Mean Corpuscular 29.2 Hemoglobin Mean Corpuscular 31.4 L Hemoglobin Concent Red Cell Distribution 16.9 H Width Platelet Count 176 Mean Platelet Volume 10.9 H Immature Granulocytes % 3.800 H Neutrophils % 57.6 Lymphocytes % 23.5 Monocytes % 13.7 H Eosinophils % 0.9 Basophils % 0.5 Nucleated Red Blood 0.0 Cells % Immature Granulocytes # 0.240 H Neutrophils # 3.6 Lymphocytes # 1.5 Monocytes # 0.9 Eosinophils # 0.1 Basophils # 0.0 Nucleated Red Blood 0.0 Cells # Sodium Level 141 Potassium Level 5.4 H Chloride Level 107 Carbon Dioxide Level 25 Anion Gap 9 Blood Urea Nitrogen 83 H Creatinine 1.73 H Est Glomerular Filtrat Rate mL/min Glucose Level 115 Calcium Level 9.8 Phosphorus Level 4.6 Magnesium Level 2.0 Bedside Glucose 136 143 168 Test 09/30/18 06:08 09/30/18 07:36 Sodium Level 144 Potassium Level 4.2 Chloride Level 111 H Carbon Dioxide Level 27 Anion Gap 6 Blood Urea Nitrogen 77 H Creatinine 1.44 H Est Glomerular Filtrat Rate mL/min Glucose Level 104 Calcium Level 9.2 Bedside Glucose 110 Medications Current Medications Senna (Senokot) 1 tab HS PO Last administered on 09/28/18 20:59; Admin Dose 1 TAB; Start 09/19/18 at 21:00 Magnesium Hydroxide (Milk Of Mag) 30 ml BID PRN PO CONSTIPATION; Start 09/19/18 at 14:30 Lactulose (Enulose) 20 gm DAILY PRN PO CONSTIPATION; Start 09/19/18 at 14:30 Miscellaneous Information (Pending Santyl Order For Wound Care) This patient jean-baptiste... PRN PRN XX WOUND CARE; Start 09/19/18 at 14:30 Diphenhydramine HCl (Benadryl) 12.5 mg Q4H PRN IV ITCHING; Start 09/19/18 at 14:30 Febuxostat (Uloric) 40 mg DAILY PO Last administered on 09/29/18 09:19; Admin Dose 40 MG; Start 09/20/18 at 09:00 Heparin Sodium (Porcine) (Heparin (5000 Units/1ml)) 5,000 unit BID SC Last administered on 09/29/18 20:52; Admin Dose 5,000 UNIT; Start 09/19/18 at 21:00 Levalbuterol (Xopenex Neb) 0.63 mg Q6H RESP THERAPY HHN Last administered on 09/30/18 07:43; Admin Dose 0.63 MG; Start 09/19/18 at 20:00 Miconazole Nitrate (Miconazole 2% Cr) 1 applic BID TOP Last administered on 09/29/18 21:01; Admin Dose 1 APPLIC; Start 09/19/18 at 21:00 Nalbuphine HCl (Nubain) 2 mg Q6 PRN IV PRURITUS; Start 09/19/18 at 14:30 Phenol (Chloraseptic Throat [place]) 2 spray Q3 PRN MT SORE THROAT; Start 09/19/18 at 14:30 Tamsulosin HCl (Flomax) 0.4 mg PC BREAKFAST PO Last administered on 09/29/18 09:18; Admin Dose 0.4 MG; Start 09/20/18 at 08:35 Tobramycin/ Dexamethasone (Tobradex Oph Drop) 1 drop QID BOTH EYES Last admi nistered on 09/29/18 20:53; Admin Dose 1 DROP; Start 09/19/18 at 17:00 Diagnostic Test (Pha) (Accu-Chek) 1 ea 02 XX Last administered on 09/26/18at 02:56; Admin Dose 1 EA; Start 09/20/18 at 02:00 Insulin Aspart (Novolog Insulin Pen) NOVOLOG *MILD* ALGORITHM WITH MEALS BEDTIME SC Last administered on 09/29/18at 17:38; Admin Dose 1 UNIT; Start 09/19/18 at 17:35 Miscellaneous Information 1 ea NOTE XX ; Start 09/19/18 at 16:30 Glucose (Glutose) 15 gm Q15M PRN PO DECREASED GLUCOSE; Start 09/19/18 at 16:30 Glucose (Glutose) 22.5 gm Q15M PRN PO DECREASED GLUCOSE; Start 09/19/18 at 16:30 Dextrose (D50w Syringe) 25 ml Q15M PRN IV DECREASED GLUCOSE; Start 09/19/18 at 16:30 Dextrose (D50w Syringe) 50 ml Q15M PRN IV DECREASED GLUCOSE; Start 09/19/18 at 16:30 Glucagon (Glucagen) 1 mg Q15M PRN IM DECREASED GLUCOSE; Start 09/19/18 at 16:30 Glucose (Glutose) 15 gm Q15M PRN BUCCAL DECREASED GLUCOSE; Start 09/19/18 at 16:30 Bisacodyl (Dulcolax Supp) 10 mg DAILY PRN [place] CONSTIPATION; Start 09/20/18 at 01:00 Acetaminophen (Tylenol Liquid) 650 mg Q4H PRN PO MILD PAIN(1-3)OR ELEVATED TEMP Last administered on 09/25/18at 20:06; Admin Dose 650 MG; Start 09/20/18 at 18:30 Cholecalciferol (Vitamin D) 1,000 unit DAILY PO Last administered on 09/29/18at 09:19; Admin Dose 1,000 UNIT; Start 09/21/18 at 09:00 Diphenhydramine HCl (Benadryl Liquid Cup) 25 mg Q4H PRN PO ITCHING; Start 09/20/18 at 18:30 Docusate Sodium (Colace Liquid Cup) 100 mg BID PO Last administered on 09/29/18at 09:19; Admin Dose 100 MG; Start 09/20/18 at 21:00 Folic Acid (Folic Acid) 1 mg DAILY PO Last administered on 09/29/18at 09:20; Admin Dose 1 MG; Start 09/21/18 at 09:00 Glycopyrrolate (Robinul) 1 mg BID PO Last administered on 09/29/18 20:50; Admin Dose 1 MG; Start 09/20/18 at 21:00 Lansoprazole (Prevacid) 30 mg DAILY@06 PO Last administered on 09/30/18 06:51; Admin Dose 30 MG; Start 09/21/18 at 06:00 Levothyroxine Sodium (Synthroid) 137 mcg DAILY@06 PO Last administered on 09/30/18 06:51; Admin Dose 137 MCG; Start 09/21/18 at 06:00 Multivit/Ca Carb/ B Cmplx/FA/Prenat (Daphnie-Nikole) 1 tab DAILY PO Last administered on 09/29/18 09:18; Admin Dose 1 TAB; Start 09/21/18 at 09:00 Prochlorperazine (Compazine) 5 mg Q6H PRN PO NAUSEA AND/OR VOMITING; Start 09/20/18 at 18:30 Propranolol HCl (Inderal) 20 mg TID PO Last administered on 09/29/18 12:18; Admin Dose 20 MG; Start 09/20/18 at 21:00 Fluconazole (Diflucan) 100 mg DAILY PO Last administered on 09/29/18 09:18; Admin Dose 100 MG; Start 09/21/18 at 13:00 Insulin Glargine (Lantus) 16 units DAILY@2000 SC Last administered on 09/29/18 20:53; Admin Dose 16 UNITS; Start 09/27/18 at 20:00 Eye Lubricant (Refresh Plus) 1 drop QID PRN BOTH EYES DRY EYES Last adminis tered on 09/29/18 09:19; Admin Dose 1 DROP; Start 09/28/18 at 12:00 Assessment/Plan Additional Assessment/Plan Rehab- Critical illness myopathy; debility - S/p acute respiratory failure Good progress with rehab, current status and dc planning d/w family. CONTINUE THERAPEUTIC INTERVENTIONS Pulm- s/p resp failure, right empyema and thoracotomy with decortication, COPD and tracheostomy- s/p decannulation doing well Chronic atrial fibrillation.NOW NSR PER IM Chronic kidney disease. Anemia.H/H STABLE BPH. Hypertension. Diabetes mellitus. Impairments in hearing. ELEVATED K KAEXELATE YESTERDAY K 5.4 TO 4.2 GRITTON,XIMENA D. MD Sep 30, 2018 07:48
[2018-09-30] MEDS: TOBRAMYCIN/DEXAMETH 2.5 ML OPH BOTH EYES SCH ×4 (08:25→20:42)
[2018-09-30] MEDS: FEBUXOSTAT 40 MG TABLET PO SCH (08:26)
[2018-09-30] MEDS: TAMSULOSIN (SR) 0.4 MG CAP PO SCH (08:26)
[2018-09-30] MEDS: MULTIVIT/CA CARB/B CMPLX/FA TAB PO SCH (08:26)
[2018-09-30] MEDS: FLUCONAZOLE 100 MG TAB PO SCH (08:26)
[2018-09-30] MEDS: CHOLECALCIFEROL 1,000 UNIT TAB PO SCH (08:26)
[2018-09-30] MEDS: GLYCOPYRROLATE 1 MG TAB PO SCH ×2 (08:26→20:42)
[2018-09-30] MEDS: FOLIC ACID 1 MG TAB PO SCH (08:26)
[2018-09-30] MEDS: DOCUSATE SODIUM 10 MG/ML (10ML CUP) PO SCH ×2 (08:26→20:41)
[2018-09-30] MEDS: MICONAZOLE 2% 30 GM CR TOP SCH ×2 (08:27→20:47)
[2018-09-30] MEDS: HEPARIN 5,000 UNIT/1 ML VIAL SC SCH ×2 (08:27→20:41)
[2018-09-30 09:00] VITALS: BP 95/67; PULSE 69
[2018-09-30] MEDS: PROPRANOLOL 20 MG TAB PO SCH ×3 (09:00→20:45)
--- NOTE | 2018-09-30 13:25 | CONS ---
Assessment/Plan Assessment/Plan Assessment/Plan (Daily) 1. Chronic respiratory failure. The patient is status post decannulation, currently stable. Continue to monitor. 2. Dysphagia, status post PEG removal. Continue to advance diet. 3. hyperkalemia: s/p kayexalate. off of aldactone. improved 4. Mike on CKD. stopped aldactone. improving. monitor renal function 5. Anemia. Monitor hemoglobin and hematocrit levels. Will give Epogen as needed. 6. Mineral bone disorder, monitor calcium and phosphorus levels. 7. Atrial fibrillation, currently in sinus rhythm. Continue current treatment plan. 8. Hypothyroidism. Continue Synthroid. 9. Benign prostatic hypertrophy. Continue Uloric. 10. Constipation. Continue current bowel regimen. 11. History of hypertension. Blood pressure well controlled. 12. Diabetes. Continue current insulin regimen. No further hypoglycemic episodes. Consultation Date/Type/Reason Admit Date/Time Sep 19, 2018 at 13:50 Initial Consult Date 09/21/18 Requesting Provider: FARAZ GONGORA DO Date/Time of Note DATE: 09/30/18 TIME: 13:23 24 HR Interval Summary Free Text/Dictation s/p kayexalate yesterday stopped aldactone denies shortness of breath, n/v or urinary issues d/w rn gen nad cv rrr pulm ctab abd soft, nd, nt +bs ext: no edema Exam/Review of Systems Exam Vitals Vital Signs Date Temp Pulse Resp B/P (MAP) Pulse Ox O2 O2 Flow FiO2 Time Delivery Rate 09/30/18 69 95/67 (76) 09:00 09/30/18 20 21 07:50 09/30/18 98.2 94 Room Air 07:00 Intake and Output 09/29/18 09/29/18 09/30/18 1515:00 23:00 07:00 IntakeIntake Total 200 ml 800 ml 240 ml OutputOutput Total 450 ml 500 ml BalanceBalance 200 ml 350 ml -260 ml Results Result Diagram: 09/29/18 0804 09/30/18 0608 Results 24hrs Laboratory Tests Test 09/29/18 17:35 09/29/18 20:49 09/30/18 06:08 09/30/18 07:36 Bedside Glucose 143 168 110 Sodium Level 144 Potassium Level 4.2 Chloride Level 111 H Carbon Dioxide Level 27 Anion Gap 6 Blood Urea Nitrogen 77 H Creatinine 1.44 H Est Glomerular Filtrat Rate mL/min Glucose Level 104 Calcium Level 9.2 Test 09/30/18 11:57 Bedside Glucose 161 Medications Medication Current Medications Senna (Senokot) 1 tab HS PO Last administered on 09/28/18 20:59; Admin Dose 1 TAB; Start 09/19/18 at 21:00 Magnesium Hydroxide (Milk Of Mag) 30 ml BID PRN PO CONSTIPATION; Start 09/19/18 at 14:30 Lactulose (Enulose) 20 gm DAILY PRN PO CONSTIPATION; Start 09/19/18 at 14:30 Miscellaneous Information (Pending Santyl Order For Wound Care) This patient jean-baptiste... PRN PRN XX WOUND CARE; Start 09/19/18 at 14:30 Diphenhydramine HCl (Benadryl) 12.5 mg Q4H PRN IV ITCHING; Start 09/19/18 at 14:30 Febuxostat (Uloric) 40 mg DAILY PO Last administered on 09/30/18 08:26; Admin Dose 40 MG; Start 09/20/18 at 09:00 Heparin Sodium (Porcine) (Heparin (5000 Units/1ml)) 5,000 unit BID SC Last administered on 09/30/18 08:27; Admin Dose 5,000 UNIT; Start 09/19/18 at 21:00 Levalbuterol (Xopenex Neb) 0.63 mg Q6H RESP THERAPY HHN Last administered on 09/30/18 07:43; Admin Dose 0.63 MG; Start 09/19/18 at 20:00 Miconazole Nitrate (Miconazole 2% Cr) 1 applic BID TOP Last administered on 09/30/18 08:27; Admin Dose 1 APPLIC; Start 09/19/18 at 21:00 Nalbuphine HCl (Nubain) 2 mg Q6 PRN IV PRURITUS; Start 09/19/18 at 14:30 Phenol (Chloraseptic Throat [place]) 2 spray Q3 PRN MT SORE THROAT; Start 09/19/18 at 14:30 Tamsulosin HCl (Flomax) 0.4 mg PC BREAKFAST PO Last administered on 09/30/18 08:26; Admin Dose 0.4 MG; Start 09/20/18 at 08:35 Tobramycin/ Dexamethasone (Tobradex Oph Drop) 1 drop QID BOTH EYES Last administered on 09/30/18at 12:00; Admin Dose 1 DROP; Start 09/19/18 at 17:00 Diagnostic Test (Pha) (Accu-Chek) 1 ea 02 XX Last administered on 09/26/18at 02:56; Admin Dose 1 EA; Start 09/20/18 at 02:00 Insulin Aspart (Novolog Insulin Pen) NOVOLOG *MILD* ALGORITHM WITH MEALS BED TIME SC Last administered on 09/30/18at 11:59; Admin Dose 1 UNIT; Start 09/19/18 at 17:35 Miscellaneous Information 1 ea NOTE XX ; Start 09/19/18 at 16:30 Glucose (Glutose) 15 gm Q15M PRN PO DECREASED GLUCOSE; Start 09/19/18 at 16:30 Glucose (Glutose) 22.5 gm Q15M PRN PO DECREASED GLUCOSE; Start 09/19/18 at 16:30 Dextrose (D50w Syringe) 25 ml Q15M PRN IV DECREASED GLUCOSE; Start 09/19/18 at 16:30 Dextrose (D50w Syringe) 50 ml Q15M PRN IV DECREASED GLUCOSE; Start 09/19/18 at 16:30 Glucagon (Glucagen) 1 mg Q15M PRN IM DECREASED GLUCOSE; Start 09/19/18 at 16:30 Glucose (Glutose) 15 gm Q15M PRN BUCCAL DECREASED GLUCOSE; Start 09/19/18 at 16:30 Bisacodyl (Dulcolax Supp) 10 mg DAILY PRN [place] CONSTIPATION; Start 09/20/18 at 01:00 Acetaminophen (Tylenol Liquid) 650 mg Q4H PRN PO MILD PAIN(1-3)OR ELEVATED TEMP Last administered on 09/25/18at 20:06; Admin Dose 650 MG; Start 09/20/18 at 18:30 Cholecalciferol (Vitamin D) 1,000 unit DAILY PO Last administered on 09/30/18 08:26; Admin Dose 1,000 UNIT; Start 09/21/18 at 09:00 Diphenhydramine HCl (Benadryl Liquid Cup) 25 mg Q4H PRN PO ITCHING; Start 09/20/18 at 18:30 Docusate Sodium (Colace Liquid Cup) 100 mg BID PO Last administered on 09/30/18at 08:26; Admin Dose 100 MG; Start 09/20/18 at 21:00 Folic Acid (Folic Acid) 1 mg DAILY PO Last administered on 09/30/18 08:26; Admin Dose 1 MG; Start 09/21/18 at 09:00 Glycopyrrolate (Robinul) 1 mg BID PO Last administered on 09/30/18 08:26; Admin Dose 1 MG; Start 09/20/18 at 21:00 Lansoprazole (Prevacid) 30 mg DAILY@06 PO Last administered on 09/30/18 06:51; Admin Dose 30 MG; Start 09/21/18 at 06:00 Levothyroxine Sodium (Synthroid) 137 mcg DAILY@06 PO Last administered on 09/30/18 06:51; Admin Dose 137 MCG; Start 09/21/18 at 06:00 Multivit/Ca Carb/ B Cmplx/FA/Prenat (Daphnie-Nikole) 1 tab DAILY PO Last administered on 09/30/18 08:26; Admin Dose 1 TAB; Start 09/21/18 at 09:00 Prochlorperazine (Compazine) 5 mg Q6H PRN PO NAUSEA AND/OR VOMITING; Start 09/20/18 at 18:30 Propranolol HCl (Inderal) 20 mg TID PO Last administered on 09/30/18 12:03; Admin Dose 20 MG; Start 09/20/18 at 21:00 Fluconazole (Diflucan) 100 mg DAILY PO Last administered on 09/30/18 08:26; Admin Dose 100 MG; Start 09/21/18 at 13:00 Insulin Glargine (Lantus) 16 units DAILY@2000 SC Last administered on 09/29/18 20:53; Admin Dose 16 UNITS; Start 09/27/18 at 20:00 Eye Lubricant (Refresh Plus) 1 drop QID PRN BOTH EYES DRY EYES Last administered on 09/29/18 09:19; Admin Dose 1 DROP; Start 09/28/18 at 12:00 RONALD ABARCA MD Sep 30, 2018 13:25
[2018-09-30 14:00] VITALS: BP 104/64; PULSE 100; RESP 20
[2018-09-30 20:00] VITALS: BP 98/57; PULSE 58; RESP 18
[2018-09-30] MEDS: INSULIN GLARGINE [LANTus] (100 UNITS/ML) SYG SC SCH (20:40)
[2018-09-30] MEDS: SENNA TAB PO SCH (20:42)
[2018-10-01 02:00] VITALS: BP 103/66; PULSE 87; RESP 18
[2018-10-01] MEDS: ACCU-CHEK XX SCH (02:00)
[2018-10-01] MEDS: LEVALBUTEROL (NEB) 0.63 MG/3 ML AMP HHN SCH ×4 (02:08→19:52)
[2018-10-01] MEDS: LANSOPRAZOLE 30 MG CAP PO SCH (06:32)
[2018-10-01] MEDS: LEVOTHYROXINE 137 MCG TAB PO SCH (06:32)
[2018-10-01 07:00] VITALS: BP 124/56; PULSE 106; RESP 18
[2018-10-01] MEDS: INSULIN ASPART [NOVOLOG] 3 ML PEN SC SCH ×4 (07:35→20:50)
--- NOTE | 2018-10-01 08:43 | PN ---
DATE: 10/01/2018 SUBJECTIVE: The patient is stable, no events overnight. No fevers, chills, nausea, vomiting. OBJECTIVE: VITAL SIGNS: Blood pressure is 103/66, respiration 18, pulse 86, temperature 97.9. HEENT: Head is normocephalic. NECK: Supple. HEART: Regular rate. LUNGS: Show diminished breath sounds at the base. ABDOMEN: Soft, nontender to palpation without rebound or guarding. EXTREMITIES: Negative for clubbing, cyanosis, no edema. DERMATOLOGIC: No rashes. MUSCULOSKELETAL: No joint effusion. NEUROLOGIC: No change in exam. MEDICATIONS: The patient's medications have been reviewed. LABORATORY DATA: The laboratory data has been reviewed. ASSESSMENT AND PLAN: 1. Chronic respiratory failure. The patient is status post decannulation, currently stable. Contin ue to monitor. 2. Dysphagia, status post PEG removal. The patient is currently stable. Continue to advance diet. 3. Mild abdominal distention, resolved. 4. Chronic kidney disease. Renal function stable. Continue medical management. 5. Anemia. Monitor hemoglobin and hematocrit levels. Will give Epogen as needed. 6. Mineral bone disorder. Monitor calcium and phosphorus levels. 7. Atrial fibrillation, currently in sinus rhythm. Continue current treatment plan. 8. Hypothyroidism. Continue Synthroid. 9. Benign prostatic hypertrophy. Continue Uloric. 10. Constipation. Continue current bowel regimen. 11. Hypertension. Continue current blood pressure regimen. 12. Diabetes. Continue current insulin regimen. Dictated By: FARAZ GONGORA DO NR/NTS Conf#: [id number] DID#: [id number] CC: CAROLINA BENAVIDES MD; CHARLENE LYMAN DO; JESUS CHAMBERS MD;*EndCC*
[2018-10-01] MEDS: TAMSULOSIN (SR) 0.4 MG CAP PO SCH (09:05)
[2018-10-01] MEDS: TOBRAMYCIN/DEXAMETH 2.5 ML OPH BOTH EYES SCH ×4 (09:05→20:46)
[2018-10-01] MEDS: DOCUSATE SODIUM 10 MG/ML (10ML CUP) PO SCH ×2 (09:06→20:45)
[2018-10-01] MEDS: FOLIC ACID 1 MG TAB PO SCH (09:06)
[2018-10-01] MEDS: FLUCONAZOLE 100 MG TAB PO SCH (09:08)
[2018-10-01] MEDS: PROPRANOLOL 20 MG TAB PO SCH ×3 (09:08→20:46)
[2018-10-01] MEDS: GLYCOPYRROLATE 1 MG TAB PO SCH ×2 (09:09→20:45)
[2018-10-01] MEDS: CHOLECALCIFEROL 1,000 UNIT TAB PO SCH (09:09)
[2018-10-01] MEDS: MULTIVIT/CA CARB/B CMPLX/FA TAB PO SCH (09:09)
[2018-10-01] MEDS: MICONAZOLE 2% 30 GM CR TOP SCH ×2 (09:09→20:46)
[2018-10-01] MEDS: FEBUXOSTAT 40 MG TABLET PO SCH (09:09)
[2018-10-01] MEDS: HEPARIN 5,000 UNIT/1 ML VIAL SC SCH ×2 (09:10→20:49)
[2018-10-01 14:00] VITALS: BP 93/68; PULSE 77; RESP 18
--- NOTE | 2018-10-01 19:01 | CONS ---
Consult Date/Type/Reason Admit Date/Time Sep 19, 2018 at 13:50 Initial Consult Date 09/21/18 Type of Consultation: cv Requesting Provider: FARAZ LINDSEY DO Date/Time of Note DATE: 10/01/18 TIME: 19:01 Subjective Cardiology follow-up progress Subjective: Discussed with the staff. Patient with no chest pain or pressure. He continues to cooperate with physical therapy. Breathing appears to be stabilizing Objective: General: Elderly gentleman in no acute distress HEENT: NC/AT. pupils are equal. round. NECK: Status with previous trach which is closed. no stridor. CV: Irregularly regular. systolic murmur; no gallop or rubs. PULM: no wheezing or rhonchi. GI: SOFT, NT, ND, no rebound or guarding . Extremity: trace B/L LE edema. no clubbing. neuro: awake and alert, Psych: calm and pleasant rectal: deferred : normal [id number] 2018 which was personally reviewed shows: Normal left ventricular cavity size. Moderate concentric left ventricular hypertrophy. Severe global left ventricular systolic dysfunction. Ejection fraction is visually estimated at 35-40 %. Tissue Doppler/Mitral Doppler indices are indeterminate in this study due to the presence of . Mitral valve leaflets appear mildly thickened. Mild mitral annular calcification. Mild mitral valve regurgitation. No significant aortic stenosis or insufficiency. Aortic cusps appear mildly calcified. Normal appearance of the tricuspid valve. Estimated peak PA systolic pressure 30 mmHg. There is trace tricuspid regurgitation. There is mild enlargement of left atrium. Trivial pericardial effusion. Objective Vitals Vital Signs Date Temp Pulse Resp B/P (MAP) Pulse Ox O2 O2 Flow FiO2 Time Delivery Rate 10/01/18 98.0 77 18 93/68 (76) 95 Room Air 14:00 10/01/18 21 02:09 Intake and Output 09/30/18 09/30/18 10/01/18 1515:00 23:00 07:00 IntakeIntake Total 860 ml OutputOutput Total 550 ml BalanceBalance 310 ml Results/Medications Result Diagram: 09/29/18 0804 10/01/18 0614 Results 24 hrs Laboratory Tests Test 09/30/18 20:37 10/01/18 06:14 10/01/18 07:48 10/01/18 12:13 Bedside Glucose 150 87 159 Sodium Level 143 Potassium Level 4.1 Chloride Level 110 Carbon Dioxide Level 25 Anion Gap 8 Blood Urea Nitrogen 80 H Creatinine 1.36 H Est Glomerular Filtrat Rate mL/min Glucose Level 88 Calcium Level 9.1 Phosphorus Level 3.9 Magnesium Level 2.0 Test 10/01/18 17:11 Bedside Glucose 128 Home Meds Active Scripts Front Wheel Walker* (Front Wheel Walker*) 1 Each Dme, 1 EACH [facility] DIRECTED, #1 DME 0 Refills Prov:LEKKOS,APOSTOLOS A. DO 05/28/17 Sodium Polystyrene Sulfonate* (Kayexalate*) 15 Gm/60 Ml Susp, 30 GM PO each day for 2 Days, ML Prov:LEKKOS,APOSTOLOS A. DO 05/28/17 Medications Current Medications Senna (Senokot) 1 tab HS PO Last administered on 09/30/18 20:42; Admin Dose 1 TAB; Start 09/19/18 at 21:00 Magnesium Hydroxide (Milk Of Mag) 30 ml BID PRN PO CONSTIPATION; Start 09/19/18 at 14:30 Lactulose (Enulose) 20 gm DAILY PRN PO CONSTIPATION; Start 09/19/18 at 14:30 Miscellaneous Information (Pending [facility] Order For Wound Care) This patient jean-baptiste... PRN PRN XX WOUND CARE; Start 09/19/18 at 14:30 Diphenhydramine HCl (Benadryl) 12.5 mg Q4H PRN IV ITCHING; Start 09/19/18 at 14:30 Febuxostat (Uloric) 40 mg DAILY PO Last administered on 10/01/18 09:09; Admin Dose 40 MG; Start 09/20/18 at 09:00 Heparin Sodium (Porcine) (Heparin (5000 Units/1ml)) 5,000 unit BID SC Last administered on 10/01/18 09:10; Admin Dose 5,000 UNIT; Start 09/19/18 at 21:00 Levalbuterol (Xopenex Neb) 0.63 mg Q6H RESP THERAPY HHN Last administered on 10/01/18 02:08; Admin Dose 0.63 MG; Start 09/19/18 at 20:00 Miconazole Nitrate (Miconazole 2% Cr) 1 applic BID TOP Last administered on 10/01/18 09:09; Admin Dose 1 APPLIC; Start 09/19/18 at 21:00 Nalbuphine HCl (Nubain) 2 mg Q6 PRN IV PRURITUS; Start 09/19/18 at 14:30 Phenol (Chloraseptic Throat [place]) 2 spray Q3 PRN MT SORE THROAT; Start 09/19/18 at 14:30 Tamsulosin HCl (Flomax) 0.4 mg PC BREAKFAST PO Last administered on 10/01/18 09:05; Admin Dose 0.4 MG; Start 09/20/18 at 08:35 Tobramycin/ Dexamethasone (Tobradex Oph Drop) 1 drop QID BOTH EYES Last administered on 10/01/18 17:27; Admin Dose 1 DROP; Start 09/19/18 at 17:00 Diagnostic Test (Pha) (Accu-Chek) 1 ea 02 XX Last administered on 09/26/18 02:56; Admin Dose 1 EA; Start 09/20/18 at 02:00 Insulin Aspart (Novolog Insulin Pen) NOVOLOG *MILD* ALGORITHM WITH MEALS BEDTIME SC Last administered on 10/01/18 12:15; Admin Dose 1 UNIT; Start 09/19/18 at 17:35 Miscellaneous Information 1 ea NOTE XX ; Start 09/19/18 at 16:30 Glucose (Glutose) 15 gm Q15M PRN PO DECREASED GLUCOSE; Start 09/19/18 at 16:30 Glucose (Glutose) 22.5 gm Q15M PRN PO DECREASED GLUCOSE; Start 09/19/18 at 16:30 Dextrose (D50w Syringe) 25 ml Q15M PRN IV DECREASED GLUCOSE; Start 09/19/18 at 16:30 Dextrose (D50w Syringe) 50 ml Q15M PRN IV DECREASED GLUCOSE; Start 09/19/18 at 16:30 Glucagon (Glucagen) 1 mg Q15M PRN IM DECREASED GLUCOSE; Start 09/19/18 at 16:30 Glucose (Glutose) 15 gm Q15M PRN BUCCAL DECREASED GLUCOSE; Start 09/19/18 at 16:30 Bisacodyl (Dulcolax Supp) 10 mg DAILY PRN [place] CONSTIPATION; Start 09/20/18 at 01:00 Acetaminophen (Tylenol Liquid) 650 mg Q4H PRN PO MILD PAIN(1-3)OR ELEVATED TEMP Last administered on 09/25/18 20:06; Admin Dose 650 MG; Start 09/20/18 at 18:30 Cholecalciferol (Vitamin D) 1,000 unit DAILY PO Last administered on 10/01/18 09:09; Admin Dose 1,000 UNIT; Start 09/21/18 at 09:00 Diphenhydramine HCl (Benadryl Liquid Cup) 25 mg Q4H PRN PO ITCHING Last administered on 10/01/18 01:41; Admin Dose 25 MG; Start 09/20/18 at 18:30 Docusate Sodium (Colace Liquid Cup) 100 mg BID PO Last administered on 10/01/18 09:06; Admin Dose 100 MG; Start 09/20/18 at 21:00 Folic Acid (Folic Acid) 1 mg DAILY PO Last administered on 10/01/18 09:06; Admin Dose 1 MG; Start 09/21/18 at 09:00 Glycopyrrolate (Robinul) 1 mg BID PO Last administered on 10/01/18 09:09; Admin Dose 1 MG; Start 09/20/18 at 21:00 Lansoprazole (Prevacid) 30 mg DAILY@06 PO Last administered on 10/01/18 06:32; Admin Dose 30 MG; Start 09/21/18 at 06:00 Levothyroxine Sodium (Synthroid) 137 mcg DAILY@06 PO Last administered on 10/01/18 06:32; Admin Dose 137 MCG; Start 09/21/18 at 06:00 Multivit/Ca Carb/ B Cmplx/FA/Prenat (Daphnie-Nikole) 1 tab DAILY PO Last administered on 10/01/18 09:09; Admin Dose 1 TAB; Start 09/21/18 at 09:00 Prochlorperazine (Compazine) 5 mg Q6H PRN PO NAUSEA AND/OR VOMITING; Start 09/20/18 at 18:30 Propranolol HCl (Inderal) 20 mg TID PO Last administered on 10/01/18 09:08; Adm in Dose 20 MG; Start 09/20/18 at 21:00 Fluconazole (Diflucan) 100 mg DAILY PO Last administered on 10/01/18 09:08; Admin Dose 100 MG; Start 09/21/18 at 13:00 Insulin Glargine (Lantus) 16 units DAILY@2000 SC Last administered on 09/30/18 20:40; Admin Dose 16 UNITS; Start 09/27/18 at 20:00 Eye Lubricant (Refresh Plus) 1 drop QID PRN BOTH EYES DRY EYES Last administered on 09/29/18at 09:19; Admin Dose 1 DROP; Start 09/28/18 at 12:00 Assessment/Plan Hospital Course (Demo Recall) 1. Atrial fibrillation: Heart rate controlled. Unable to fully anticoagulated due to concern about the anemia and OB positive stool 2. Congestive heart failure/cardiomyopathy: Chronic secondary systolic heart failure and stable now 3. Status post hypoxemic respiratory failure and tracheostomy: Currently trach is capped 4. Anemia and OB positive stool 5. Debility 6. This was empyema/pneumonia 7. dysphasia status post PEG placement 8. Renal insufficiency Recommendation: Continue with the propranolol for heart rate and blood pressure control Respiratory care as needed. Nutritional support to be continued Currently patient off of anticoagulation due to concern about the severe anemia and GI bleeding cont With physical therapy and rehab Renal management as per Dr. Lindsey and associate Thank you for his referral. We will continue to follow along with MARCO A NAJERA MD [facility] MARCO A NAJERA MD Oct 01, 2018 19:01
[2018-10-01 20:24] VITALS: BP 107/67; PULSE 118; RESP 20
[2018-10-01] MEDS: SENNA TAB PO SCH (20:46)
[2018-10-01] MEDS: INSULIN GLARGINE [LANTus] (100 UNITS/ML) SYG SC SCH (20:48)
[2018-10-02 02:18] VITALS: BP 117/63; RESP 18
[2018-10-02] MEDS: LEVALBUTEROL (NEB) 0.63 MG/3 ML AMP HHN SCH ×4 (02:24→20:44)
[2018-10-02] MEDS: ACCU-CHEK XX SCH (02:42)
[2018-10-02] MEDS: LEVOTHYROXINE 137 MCG TAB PO SCH (06:27)
[2018-10-02] MEDS: LANSOPRAZOLE 30 MG CAP PO SCH (06:27)
[2018-10-02 07:30] VITALS: BP 85/60; PULSE 105; RESP 20
[2018-10-02] MEDS: INSULIN ASPART [NOVOLOG] 3 ML PEN SC SCH ×4 (07:35→21:00)
[2018-10-02] MEDS: DOCUSATE SODIUM 10 MG/ML (10ML CUP) PO SCH ×2 (08:57→21:06)
[2018-10-02] MEDS: MULTIVIT/CA CARB/B CMPLX/FA TAB PO SCH (08:58)
[2018-10-02] MEDS: CHOLECALCIFEROL 1,000 UNIT TAB PO SCH (08:58)
[2018-10-02] MEDS: FEBUXOSTAT 40 MG TABLET PO SCH (08:58)
[2018-10-02] MEDS: FLUCONAZOLE 100 MG TAB PO SCH (08:58)
[2018-10-02] MEDS: FOLIC ACID 1 MG TAB PO SCH (08:58)
[2018-10-02] MEDS: GLYCOPYRROLATE 1 MG TAB PO SCH ×2 (08:58→21:06)
[2018-10-02] MEDS: TAMSULOSIN (SR) 0.4 MG CAP PO SCH (08:58)
[2018-10-02] MEDS: PROPRANOLOL 20 MG TAB PO SCH ×3 (08:59→21:00)
[2018-10-02] MEDS: HEPARIN 5,000 UNIT/1 ML VIAL SC SCH ×2 (08:59→21:08)
[2018-10-02] MEDS: TOBRAMYCIN/DEXAMETH 2.5 ML OPH BOTH EYES SCH ×4 (08:59→21:13)
--- NOTE | 2018-10-02 09:02 | PN ---
DATE: 10/02/2018 SUBJECTIVE: The patient is stable, no events overnight. No fevers, chills, nausea, or vomiting. OBJECTIVE: VITAL SIGNS: Blood pressure is 117/63, respirations 18, pulse 86, temperature 97.8. HEENT: Head is normocephalic. NECK: Supple. HEART: Regular rate. LUNGS: Show diminished breath sounds at the base. ABDOMEN: Soft, nontender to palpation without rebound or guarding. EXTREMITIES: Negative for clubbing, cyanosis, no edema. DERMATOLOGIC: No rashes. MUSCULOSKELETAL: No joint effusion. NEUROLOGIC: No change in exam. MEDICATIONS: Reviewed. LABORATORY DATA: Reviewed. ASSESSMENT AND PLAN: 1. Chronic respiratory failure. The patient is status post decannulation, currently stable. Contin ue to monitor. 2. Dysphagia, status post PEG. The patient is currently stable, tolerating oral diet. 3. Abdominal distention, resolved. 4. Chronic kidney disease. Renal function is stable. Continue medical management. 5. Anemia. Continue to monitor hemoglobin and hematocrit levels. We will give Epogen as needed. 6. Mineral bone disorder, monitor calcium and phosphorus levels. 7. Atrial fibrillation, currently in sinus rhythm. Continue current treatment plan. 8. Hypothyroidism. Continue Synthroid. 9. Benign prostatic hypertrophy. Continue Uloric. 10. Constipation. Continue current bowel regimen. 11. Hypertension. Continue current blood pressure regimen. 12. Diabetes. Continue current insulin regimen. Dictated By: FARAZ GONGORA DO NR/NTS Conf#: [id number] DID#: [id number] CC: CHARLENE LYMAN DO; CAROLINA BENAVIDES MD; JESUS CHAMBERS MD;*End*
[2018-10-02] MEDS: MICONAZOLE 2% 30 GM CR TOP SCH ×2 (09:07→21:21)
--- NOTE | 2018-10-02 13:37 | PN ---
Date/Time of Note Date/Time of Note DATE: 10/02/18 TIME: 13:37 Objective Vital Signs Date Temp Pulse Resp B/P (MAP) Pulse Ox O2 O2 Flow FiO2 Time Delivery Rate 10/02/18 97.2 105 20 85/60 (68) 95 Room Air 07:30 10/01/18 21 19:53 Intake and Output 10/01/18 10/01/18 10/02/18 1515:00 23:00 07:00 IntakeIntake Total 1200 ml OutputOutput Total 600 ml 400 ml BalanceBalance 600 ml -400 ml Exam INTERDISCIPLINARY TEAM CONFERENCE Physical Exam: Pulm-cta Abd-soft BOWEL- Cont BLADDER-Cont SKIN- healing OT- DRESSING-min BATHING-min TOILETING-min PT- BED MOBILITY-sba TRANSFERS-min AMBULATION-min 100 feet A/P- Interdisciplinary team conference held today. Please see interdisciplinary sheet. Working toward d.c. on 10/05 with post discharge follow up of physical therapy, occupational therapy. Results/Medications Result Diagram: 09/29/18 0804 10/01/18 0614 Results 24 hrs Laboratory Tests Test 10/01/18 17:11 10/01/18 20:43 10/02/18 02:14 10/02/18 07:58 Bedside Glucose 128 187 114 119 Test 10/02/18 12:09 Bedside Glucose 170 Medications Current Medications Senna (Senokot) 1 tab HS PO Last administered on 10/01/18at 20:46; Admin Dose 1 TAB; Start 09/19/18 at 21:00 Magnesium Hydroxide (Milk Of Mag) 30 ml BID PRN PO CONSTIPATION; Start 09/19/18 at 14:30 Lactulose (Enulose) 20 gm DAILY PRN PO CONSTIPATION; Start 09/19/18 at 14:30 Miscellaneous Information (Pending [place] Order For Wound Care) This patient jean-baptiste... PRN PRN XX WOUND CARE; Start 09/19/18 at 14:30 Diphenhydramine HCl (Benadryl) 12.5 mg Q4H PRN IV ITCHING; Start 09/19/18 at 14:30 Febuxostat (Uloric) 40 mg DAILY PO Last administered on 10/02/18at 08:58; Admin Dose 40 MG; Start 09/20/18 at 09:00 Heparin Sodium (Porcine) (Heparin (5000 Units/1ml)) 5,000 unit BID SC Last administered on 10/02/18 08:59; Admin Dose 5,000 UNIT; Start 09/19/18 at 21:00 Levalbuterol (Xopenex Neb) 0.63 mg Q6H RESP THERAPY HHN Last administered on 10/02/18 02:24; Admin Dose 0.63 MG; Start 09/19/18 at 20:00 Miconazole Nitrate (Miconazole 2% Cr) 1 applic BID TOP Last administered on 10/02/18 09:07; Admin Dose 1 APPLIC; Start 09/19/18 at 21:00 Nalbuphine HCl (Nubain) 2 mg Q6 PRN IV PRURITUS; Start 09/19/18 at 14:30 Phenol (Chloraseptic Throat [place]) 2 spray Q3 PRN [place] SORE THROAT; Start 09/19/18 at 14:30 Tamsulosin HCl (Flomax) 0.4 mg PC BREAKFAST PO Last administered on 10/02/18 08:58; Admin Dose 0.4 MG; Start 09/20/18 at 08:35 Tobramycin/ Dexamethasone (Tobradex Oph Drop) 1 drop QID BOTH EYES Last administered on 10/02/18 12:11; Admin Dose 1 DROP; Start 09/19/18 at 17:00 Diagnostic Test (Pha) (Accu-Chek) 1 ea 02 XX Last administered on 10/02/18 02:42; Admin Dose 1 EA; Start 09/20/18 at 02:00 Insulin Aspart (Novolog Insulin Pen) NOVOLOG *MILD* ALGORITHM WITH MEALS BEDTIME SC Last administered on 10/02/18 12:12; Admin Dose 1 UNIT; Start 09/19/18 at 17:35 Miscellaneous Information 1 ea NOTE XX ; Start 09/19/18 at 16:30 Glucose (Glutose) 15 gm Q15M PRN PO DECREASED GLUCOSE; Start 09/19/18 at 16:30 Glucose (Glutose) 22.5 gm Q15M PRN PO DECREASED GLUCOSE; Start 09/19/18 at 16:30 Dextrose (D50w Syringe) 25 ml Q15M PRN IV DECREASED GLUCOSE; Start 09/19/18 at 16:30 Dextrose (D50w Syringe) 50 ml Q15M PRN IV DECREASED GLUCOSE; Start 09/19/18 at 16:30 Glucagon (Glucagen) 1 mg Q15M PRN IM DECREASED GLUCOSE; Start 09/19/18 at 16:30 Glucose (Glutose) 15 gm Q15M PRN BUCCAL DECREASED GLUCOSE; Start 09/19/18 at 16:30 Bisacodyl (Dulcolax Supp) 10 mg DAILY PRN [place] CONSTIPATION; Start 09/20/18 at 01:00 Acetaminophen (Tylenol Liquid) 650 mg Q4H PRN PO MILD PAIN(1-3)OR ELEVATED TEMP Last administered on 09/25/18 20:06; Admin Dose 650 MG; Start 09/20/18 at 18:30 Cholecalciferol (Vitamin D) 1,000 unit DAILY PO Last administered on 10/02/18 08:58; Admin Dose 1,000 UNIT; Start 09/21/18 at 09:00 Diphenhydramine HCl (Benadryl Liquid Cup) 25 mg Q4H PRN PO ITCHING Last administered on 10/01/18 01:41; Admin Dose 25 MG; Start 09/20/18 at 18:30 Docusate Sodium (Colace Liquid Cup) 100 mg BID PO Last administered on 10/02/18 08:57; Admin Dose 100 MG; Start 09/20/18 at 21:00 Folic Acid (Folic Acid) 1 mg DAILY PO Last administered on 10/02/18 08:58; Adm in Dose 1 MG; Start 09/21/18 at 09:00 Glycopyrrolate (Robinul) 1 mg BID PO Last administered on 10/02/18 08:58; Admin Dose 1 MG; Start 09/20/18 at 21:00 Lansoprazole (Prevacid) 30 mg DAILY@06 PO Last administered on 10/02/18 06:27; Admin Dose 30 MG; Start 09/21/18 at 06:00 Levothyroxine Sodium (Synthroid) 137 mcg DAILY@06 PO Last administered on 10/02/18 06:27; Admin Dose 137 MCG; Start 09/21/18 at 06:00 Multivit/Ca Carb/ B Cmplx/FA/Prenat (Daphnie-Nikole) 1 tab DAILY PO Last administered on 10/02/18 08:58; Admin Dose 1 TAB; Start 09/21/18 at 09:00 Prochlorperazine (Compazine) 5 mg Q6H PRN PO NAUSEA AND/OR VOMITING; Start 09/20/18 at 18:30 Propranolol HCl (Inderal) 20 mg TID PO Last administered on 10/02/18 12:11; Admin Dose 20 MG; Start 09/20/18 at 21:00 Fluconazole (Diflucan) 100 mg DAILY PO Last administered on 10/02/18 08:58; Admin Dose 100 MG; Start 09/21/18 at 13:00 Insulin Glargine (Lantus) 16 units DAILY@2000 SC Last administered on 10/01/18 20:48; Admin Dose 16 UNITS; Start 09/27/18 at 20:00 Eye Lubricant (Refresh Plus) 1 drop QID PRN BOTH EYES DRY EYES Last administered on 09/29/18 09:19; Admin Dose 1 DROP; Start 09/28/18 at 12:00 JESUS CHAMBERS MD Oct 02, 2018 13:37
[2018-10-02 14:00] VITALS: BP 108/64; PULSE 89; RESP 20
[2018-10-02 20:00] VITALS: BP 93/59; PULSE 107; RESP 18
[2018-10-02] MEDS: SENNA TAB PO SCH (21:06)
[2018-10-02] MEDS: INSULIN GLARGINE [LANTus] (100 UNITS/ML) SYG SC SCH (21:15)
[2018-10-03] MEDS: LEVALBUTEROL (NEB) 0.63 MG/3 ML AMP HHN SCH ×4 (01:12→19:54)
[2018-10-03 02:00] VITALS: BP_SYST 105; BP_SYST 138; BP_DIAS 66; BP_DIAS 94; PULSE 53; PULSE 92; RESP 18
[2018-10-03] MEDS: ACCU-CHEK XX SCH (02:00)
[2018-10-03] MEDS: LEVOTHYROXINE 137 MCG TAB PO SCH (06:17)
[2018-10-03] MEDS: LANSOPRAZOLE 30 MG CAP PO SCH (06:18)
[2018-10-03 07:30] VITALS: BP 118/74; PULSE 85; RESP 20
[2018-10-03] MEDS: INSULIN ASPART [NOVOLOG] 3 ML PEN SC SCH ×4 (08:02→21:00)
--- NOTE | 2018-10-03 09:14 | PN ---
DATE: 10/03/2018 SUBJECTIVE: The patient is stable, no events overnight. OBJECTIVE: VITAL SIGNS: Blood pressure is 130/94, respiration 18, pulse 92, temperature 98.0. HEENT: Head is normocephalic. NECK: Supple. HEART: Regular rate. LUNGS: Show diminished breath sounds at the base. ABDOMEN: Soft, nontender to palpation without rebound or guarding. EXTREMITIES: Negative for clubbing, cyanosis, no edema. DERMATOLOGIC: No rashes. MUSCULOSKELETAL: No joint effusions. NEUROLOGIC: No change in exam. MEDICATIONS: Reviewed. LABORATORY DATA: Has been reviewed. ASSESSMENT AND PLAN: 1. Chronic respiratory failure. The patient is status post decannulation, currently stable. Contin ue to monitor. 2. Dysphagia status post PEG. Continue current treatment plan. The patient is tolerating modified diet well. 3. Chronic kidney disease. Renal function stable. Continue medical management. 4. Anemia. Monitor hemoglobin and hematocrit levels. Will give Epogen as needed. 5. Mineral bone disorder, monitor calcium and phosphorus levels. 6. Atrial fibrillation, currently in sinus rhythm. Continue current treatment plan. 7. Hypothyroidism. Continue Synthroid. 8. Benign prostatic hypertrophy. Continue the Uloric. 9. Constipation. Continue current bowel regimen. 10. Hypertension. Continue current blood pressure regimen. 11. Diabetes. Continue current insulin regimen. Dictated By: FARAZ GONGORA DO NR/NTS Conf#: [id number] DID#: [id number] CC: CAROLINA BENAVIDES MD; JESUS CHAMBERS MD; CHARLENE LYMAN DO;*EndCC*
[2018-10-03] MEDS: TAMSULOSIN (SR) 0.4 MG CAP PO SCH (09:22)
[2018-10-03] MEDS: FLUCONAZOLE 100 MG TAB PO SCH (09:22)
[2018-10-03] MEDS: GLYCOPYRROLATE 1 MG TAB PO SCH ×2 (09:23→21:05)
[2018-10-03] MEDS: FEBUXOSTAT 40 MG TABLET PO SCH (09:23)
[2018-10-03] MEDS: CHOLECALCIFEROL 1,000 UNIT TAB PO SCH (09:23)
[2018-10-03] MEDS: TOBRAMYCIN/DEXAMETH 2.5 ML OPH BOTH EYES SCH ×4 (09:23→21:08)
[2018-10-03] MEDS: PROPRANOLOL 20 MG TAB PO SCH ×3 (09:23→21:12)
[2018-10-03] MEDS: FOLIC ACID 1 MG TAB PO SCH (09:23)
[2018-10-03] MEDS: MULTIVIT/CA CARB/B CMPLX/FA TAB PO SCH (09:23)
[2018-10-03] MEDS: MICONAZOLE 2% 30 GM CR TOP SCH ×2 (09:24→21:07)
[2018-10-03] MEDS: HEPARIN 5,000 UNIT/1 ML VIAL SC SCH ×2 (09:24→21:06)
[2018-10-03] MEDS: DOCUSATE SODIUM 10 MG/ML (10ML CUP) PO SCH (09:25)
--- NOTE | 2018-10-03 09:48 | CONS ---
Consult Date/Type/Reason Admit Date/Time Sep 19, 2018 at 13:50 Initial Consult Date 09/21/18 Type of Consultation: cv Requesting Provider: FARAZ GONGORA DO Date/Time of Note DATE: 10/03/18 TIME: 09:48 Subjective Cardiology follow-up progress Subjective: Discussed with the staff. d/w son Patient with no chest pain or pressure. He continues to cooperate with physical therapy. Breathing appears to be stable Objective: General: Elderly gentleman in no acute distress HEENT: NC/AT. pupils are equal. round. NECK: Status with previous trach which is closed. no stridor. CV: Irregularly regular. systolic murmur; no gallop or rubs. PULM: no wheezing or rhonchi. GI: SOFT, NT, ND, no rebound or guarding . Extremity: trace B/L LE edema. no clubbing. neuro: awake and alert, Psych: calm and pleasant rectal: deferred : normal 3190 August 2018 which was personally reviewed shows: Normal left ventricular cavity size. Moderate concentric left ventricular hypertrophy. Severe global left ventricular systolic dysfunction. Ejection fraction is visually estimated at 35-40 %. Tissue Doppler/Mitral Doppler indices are indeterminate in this study due to the presence of . Mitral valve leaflets appear mildly thickened. Mild mitral annular calcification. Mild mitral valve regurgitation. No significant aortic stenosis or insufficiency. Aortic cusps appear mildly calcified. Normal appearance of the tricuspid valve. Estimated peak PA systolic pressure 30 mmHg. There is trace tricuspid regurgitation. There is mild enlargement of left atrium. Trivial pericardial effusion. Objective Vitals Vital Signs Date Temp Pulse Resp B/P (MAP) Pulse Ox O2 O2 Flow FiO2 Time Delivery Rate 10/03/18 68 18 96 21 08:16 10/03/18 97.7 118/74 Room Air 07:30 (89) Intake and Output 10/02/18 10/02/18 10/03/18 1515:00 23:00 07:00 IntakeIntake Total 200 ml 760 ml OutputOutput Total 550 ml BalanceBalance 200 ml 760 ml -550 ml Results/Medications Result Diagram: 09/29/18 0804 10/01/18 0614 Results 24 hrs Laboratory Tests Test 10/02/18 12:09 10/02/18 17:30 10/02/18 21:10 10/03/18 07:57 Bedside Glucose 170 160 129 161 Home Meds Active Scripts Front Wheel Walker* (Front Wheel Walker*) 1 Each Dme, 1 EACH [facility] DIRECTED, #1 DME 0 Refills Prov:TC ZAMORA. DO 05/28/17 Sodium Polystyrene Sulfonate* (Kayexalate*) 15 Gm/60 Ml Susp, 30 GM PO each day for 2 Days, ML Prov:LEKKOS,EZEKIELSTOLOS A. DO 05/28/17 Medications Current Medications Senna (Senokot) 1 tab HS PO Last administered on 10/02/18 21:06; Admin Dose 1 TAB; Start 09/19/18 at 21:00 Magnesium Hydroxide (Milk Of Mag) 30 ml BID PRN PO CONSTIPATION; Start 09/19/18 at 14:30 Lactulose (Enulose) 20 gm DAILY PRN PO CONSTIPATION; Start 09/19/18 at 14:30 Miscellaneous Information (Pending [facility] Order For Wound Care) This patient jean-baptiste... PRN PRN XX WOUND CARE; Start 09/19/18 at 14:30 Diphenhydramine HCl (Benadryl) 12.5 mg Q4H PRN IV ITCHING; Start 09/19/18 at 14:30 Febuxostat (Uloric) 40 mg DAILY PO Last administered on 10/03/18 09:23; Admin Dose 40 MG; Start 09/20/18 at 09:00 Heparin Sodium (Porcine) (Heparin (5000 Units/1ml)) 5,000 unit BID SC Last administered on 10/03/18 09:24; Admin Dose 5,000 UNIT; Start 09/19/18 at 21:00 Levalbuterol (Xopenex Neb) 0.63 mg Q6H RESP THERAPY HHN Last administered on 10/03/18 08:15; Admin Dose 0.63 MG; Start 09/19/18 at 20:00 Miconazole Nitrate (Miconazole 2% Cr) 1 applic BID TOP Last administered on 10/03/18 09:24; Admin Dose 1 APPLIC; Start 09/19/18 at 21:00 Nalbuphine HCl (Nubain) 2 mg Q6 PRN IV PRURITUS; Start 09/19/18 at 14:30 Phenol (Chloraseptic Throat [place]) 2 spray Q3 PRN MT SORE THROAT; Start 09/19/18 at 14:30 Tamsulosin HCl (Flomax) 0.4 mg PC BREAKFAST PO Last administered on 10/03/18 09:22; Admin Dose 0.4 MG; Start 09/20/18 at 08:35 Tobramycin/ Dexamethasone (Tobradex Oph Drop) 1 drop QID BOTH EYES Last administered on 10/03/18 09:23; Admin Dose 1 DROP; Start 09/19/18 at 17:00 Diagnostic Test (Pha) (Accu-Chek) 1 ea 02 XX Last administered on 10/02/18at 02:42; Admin Dose 1 EA; Start 09/20/18 at 02:00 Insulin Aspart (Novolog Insulin Pen) NOVOLOG *MILD* ALGORITHM WITH MEALS BEDTIME SC Last administered on 10/03/18 08:02; Admin Dose 1 UNIT; Start 09/19/18 at 17:35 Miscellaneous Information 1 ea NOTE XX ; Start 09/19/18 at 16:30 Glucose (Glutose) 15 gm Q15M PRN PO DECREASED GLUCOSE; Start 09/19/18 at 16:30 Glucose (Glutose) 22.5 gm Q15M PRN PO DECREASED GLUCOSE; Start 09/19/18 at 16:30 Dextrose (D50w Syringe) 25 ml Q15M PRN IV DECREASED GLUCOSE; Start 09/19/18 at 16:30 Dextrose (D50w Syringe) 50 ml Q15M PRN IV DECREASED GLUCOSE; Start 09/19/18 at 16:30 Glucagon (Glucagen) 1 mg Q15M PRN IM DECREASED GLUCOSE; Start 09/19/18 at 16:30 Glucose (Glutose) 15 gm Q15M PRN BUCCAL DECREASED GLUCOSE; Start 09/19/18 at 16:30 Bisacodyl (Dulcolax Supp) 10 mg DAILY PRN [place] CONSTIPATION; Start 09/20/18 at 01:00 Acetaminophen (Tylenol Liquid) 650 mg Q4H PRN PO MILD PAIN(1-3)OR ELEVATED TEMP Last administered on 09/25/18at 20:06; Admin Dose 650 MG; Start 09/20/18 at 18:30 Cholecalciferol (Vitamin D) 1,000 unit DAILY PO Last administered on 10/03/18 09:23; Admin Dose 1,000 UNIT; Start 09/21/18 at 09:00 Diphenhydramine HCl (Benadryl Liquid Cup) 25 mg Q4H PRN PO ITCHING Last administered on 10/01/18 01:41; Admin Dose 25 MG; Start 09/20/18 at 18:30 Docusate Sodium (Colace Liquid Cup) 100 mg BID PO Last administered on 10/03/18 09:25; Admin Dose 100 MG; Start 09/20/18 at 21:00 Folic Acid (Folic Acid) 1 mg DAILY PO Last administered on 10/03/18 09:23; Admin Dose 1 MG; Start 09/21/18 at 09:00 Glycopyrrolate (Robinul) 1 mg BID PO Last administered on 10/03/18 09:23; Admin Dose 1 MG; Start 09/20/18 at 21:00 Lansoprazole (Prevacid) 30 mg DAILY@06 PO Last administered on 10/03/18 06:18; Admin Dose 30 MG; Start 09/21/18 at 06:00 Levothyroxine Sodium (Synthroid) 137 mcg DAILY@06 PO Last administered on 10/03/18 06:17; Admin Dose 137 MCG; Start 09/21/18 at 06:00 Multivit/Ca Carb/ B Cmplx/FA/Prenat (Daphnie-Nikole) 1 tab DAILY PO Last administered on 10/03/18 09:23; Admin Dose 1 TAB; Start 09/21/18 at 09:00 Prochlorperazine (Compazine) 5 mg Q6H PRN PO NAUSEA AND/OR VOMITING; Start 09/20/18 at 18:30 Propranolol HCl (Inderal) 20 mg TID PO Last administered on 10/03/18 09:23; Admin Dose 20 MG; Start 09/20/18 at 21:00 Fluconazole (Diflucan) 100 mg DAILY PO Last administered on 10/03/18 09:22; Admin Dose 100 MG; Start 09/21/18 at 13:00 Insulin Glargine (Lantus) 16 units DAILY@2000 SC Last administered on 10/02/18 21:15; Admin Dose 16 UNITS; Start 09/27/18 at 20:00 Eye Lubricant (Refresh Plus) 1 drop QID PRN BOTH EYES DRY EYES Last administered on 09/29/18 09:19; Admin Dose 1 DROP; Start 09/28/18 at 12:00 Assessment/Plan Hospital Course (Demo Recall) 1. Atrial fibrillation: Heart rate controlled. Unable to fully anticoagulated due to concern about the anemia and OB positive stool 2. Congestive heart failure/cardiomyopathy: Chronic secondary systolic heart failure and stable now 3. Status post hypoxemic respiratory failure and tracheostomy: Currently trach is capped 4. Anemia and OB positive stool 5. Debility 6. This was empyema/pneumonia 7. dysphasia status post PEG placement 8. Renal insufficiency Recommendation: Continue with the propranolol for heart rate and blood pressure control Respiratory care as needed. Nutritional support to be continued Currently patient off of anticoagulation due to concern about the severe anemia and GI bleeding cont With physical therapy and rehab Renal management as per Dr. Gongora and associate Thank you for his referral. We will continue to follow along with MARCO A NAJERA MD LOCATED WITHIN [facility] MARCO A NAJERA MD Oct 03, 2018 09:48
[2018-10-03 11:09] VITALS: BP 102/61; PULSE 102; RESP 19
--- NOTE | 2018-10-03 13:12 | PN ---
Date/Time of Note Date/Time of Note DATE: 10/03/18 TIME: 13:10 Subjective Comfortable Objective Vital Signs Date Temp Pulse Resp B/P (MAP) Pulse Ox O2 O2 Flow FiO2 Time Delivery Rate 10/03/18 97.7 102 19 102/61 96 Room Air 11:09 (75) 10/03/18 21 08:16 Intake and Output 10/02/18 10/02/18 10/03/18 1515:00 23:00 07:00 IntakeIntake Total 200 ml 760 ml OutputOutput Total 550 ml BalanceBalance 200 ml 760 ml -550 ml Exam pulm-cta ambulation 100 feet Results/Medications Result Diagram: 09/29/18 0804 10/01/18 0614 Results 24 hrs Laboratory Tests Test 10/02/18 17:30 10/02/18 21:10 10/03/18 07:57 10/03/18 12:05 Bedside Glucose 160 129 161 173 Medications Current Medications Senna (Senokot) 1 tab HS PO Last administered on 10/02/18at 21:06; Admin Dose 1 TAB; Start 09/19/18 at 21:00 Magnesium Hydroxide (Milk Of Mag) 30 ml BID PRN PO CONSTIPATION; Start 09/19/18 at 14:30 Lactulose (Enulose) 20 gm DAILY PRN PO CONSTIPATION; Start 09/19/18 at 14:30 [facility]isc[facility] This patient jean-baptiste... PRN PRN XX WOUND CARE; Start 09/19/18 at 14:30 Diphenhydramine HCl (Benadryl) 12.5 mg Q4H PRN IV ITCHING; Start 09/19/18 at 14:30 Febuxostat (Uloric) 40 mg DAILY PO Last administered on 10/03/18at 09:23; Admin Dose 40 MG; Start 09/20/18 at 09:00 Heparin Sodium (Porcine) (Heparin (5000 Units/1ml)) 5,000 unit BID SC Last administered on 10/03/18 09:24; Admin Dose 5,000 UNIT; Start 09/19/18 at 21:00 Levalbuterol (Xopenex Neb) 0.63 mg Q6H RESP THERAPY HHN Last administered on 10/03/18at 08:15; Admin Dose 0.63 MG; Start 09/19/18 at 20:00 Miconazole Nitrate (Miconazole 2% Cr) 1 applic BID TOP Last administered on 10/03/18at 09:24; Admin Dose 1 APPLIC; Start 09/19/18 at 21:00 Nalbuphine HCl (Nubain) 2 mg Q6 PRN IV PRURITUS; Start 09/19/18 at 14:30 Phenol (Chloraseptic Throat [place]) 2 spray Q3 PRN MT SORE THROAT; Start 09/19/18 at 14:30 Tamsulosin HCl (Flomax) 0.4 mg PC BREAKFAST PO Last administered on 10/03/18at 09:22; Admin Dose 0.4 MG; Start 09/20/18 at 08:35 Tobramycin/ Dexamethasone (Tobradex Oph Drop) 1 drop QID BOTH EYES Last administered on 10/03/18at 12:09; Admin Dose 1 DROP; Start 09/19/18 at 17:00 Diagnostic Test (Pha) (Accu-Chek) 1 ea 02 XX Last administered on 10/02/18at 02:42; Admin Dose 1 EA; Start 09/20/18 at 02:00 Insulin Aspart (Novolog Insulin Pen) NOVOLOG *MILD* ALGORITHM WITH MEALS BEDTIME SC Last administered on 10/03/18at 12:10; Admin Dose 1 UNIT; Start 09/19/18 at 17:35 Miscellaneous Information 1 ea NOTE XX ; Start 09/19/18 at 16:30 Glucose (Glutose) 15 gm Q15M PRN PO DECREASED GLUCOSE; Start 09/19/18 at 16:30 Glucose (Glutose) 22.5 gm Q15M PRN PO DECREASED GLUCOSE; Start 09/19/18 at 16:30 Dextrose (D50w Syringe) 25 ml Q15M PRN IV DECREASED GLUCOSE; Start 09/19/18 at 16:30 Dextrose (D50w Syringe) 50 ml Q15M PRN IV DECREASED GLUCOSE; Start 09/19/18 at 16:30 Glucagon (Glucagen) 1 mg Q15M PRN IM DECREASED GLUCOSE; Start 09/19/18 at 16:30 Glucose (Glutose) 15 gm Q15M PRN BUCCAL DECREASED GLUCOSE; Start 09/19/18 at 16:30 Bisacodyl (Dulcolax Supp) 10 mg DAILY PRN [place] CONSTIPATION; Start 09/20/18 at 01:00 Acetaminophen (Tylenol Liquid) 650 mg Q4H PRN PO MILD PAIN(1-3)OR ELEVATED TEMP Last administered on 09/25/18 20:06; Admin Dose 650 MG; Start 09/20/18 at 18:30 Cholecalciferol (Vitamin D) 1,000 unit DAILY PO Last administered on 10/03/18 09:23; Admin Dose 1,000 UNIT; Start 09/21/18 at 09:00 Diphenhydramine HCl (Benadryl Liquid Cup) 25 mg Q4H PRN PO ITCHING Last administered on 10/01/18 01:41; Admin Dose 25 MG; Start 09/20/18 at 18:30 Folic Acid (Folic Acid) 1 mg DAILY PO Last administered on 10/03/18 09:23; Admin Dose 1 MG; Start 09/21/18 at 09:00 Glycopyrrolate (Robinul) 1 mg BID PO Last administered on 10/03/18 09:23; Admin Dose 1 MG; Start 09/20/18 at 21:00 Lansoprazole (Prevacid) 30 mg DAILY@06 PO Last administered on 10/03/18 06:18; Admin Dose 30 MG; Start 09/21/18 at 06:00 Levothyroxine Sodium (Synthroid) 137 mcg DAILY@06 PO Last administered on 10/03/18 06:17; Admin Dose 137 MCG; Start 09/21/18 at 06:00 Multivit/Ca Carb/ B Cmplx/FA/Prenat (Daphnie-Nikole) 1 tab DAILY PO Last administered on 10/03/18 09:23; Admin Dose 1 TAB; Start 09/21/18 at 09:00 Prochlorperazine (Compazine) 5 mg Q6H PRN PO NAUSEA AND/OR VOMITING; Start 09/20/18 at 18:30 Propranolol HCl (Inderal) 20 mg TID PO Last administered on 10/03/18 12:09; Admin Dose 20 MG; Start 09/20/18 at 21:00 Fluconazole (Diflucan) 100 mg DAILY PO Last administered on 10/03/18 09:22; Admin Dose 100 MG; Start 09/21/18 at 13:00 Insulin Glargine (Lantus) 16 units DAILY@2000 SC Last administered on 4/9/19at 21:15; Admin Dose 16 UNITS; Start 09/27/18 at 20:00 Eye Lubricant (Refresh Plus) 1 drop QID PRN BOTH EYES DRY EYES Last administered on 09/29/18at 09:19; Admin Dose 1 DROP; Start 09/28/18 at 12:00 Docusate Sodium (Colace) 100 mg BID PO ; Start 10/03/18 at 21:00 Assessment/Plan Additional Assessment/Plan Rehab- Critical illness myopathy; debility - S/p acute respiratory failure Great progress with rehab, continue current plan Pulm- s/p resp failure, right empyema and thoracotomy with decortication, COPD and tracheostomy- s/p decannulation- healed Chronic atrial fibrillation. Chronic kidney disease. Anemia. BPH. Hypertension. Diabetes mellitus. Impairments in hearing. JESUS CHAMBERS MD Oct 03, 2018 13:12
[2018-10-03 19:27] VITALS: BP 102/61; PULSE 101; RESP 18
[2018-10-03] MEDS: DOCUSATE SODIUM 100 MG CAP PO SCH (21:00)
[2018-10-03] MEDS: SENNA TAB PO SCH (21:00)
[2018-10-03] MEDS: INSULIN GLARGINE [LANTus] (100 UNITS/ML) SYG SC SCH (21:03)
--- NOTE | 2018-10-03 22:49 | PN ---
DATE: 10/03/2018 PSYCHOLOGY -- INDIVIDUAL SESSION -- [id number] This is a followup on a patient who was seen last week. The patient was seen in bed. The patient's son was present with the patient's permission. The patient reports that he is feeling much better. The patient feels like he has made progress while he is in the program. The patient is motivated to continue to improve and be able to leave the hospital. The patient is trying to be prepared to leave the hospital on Monday. I worked with the patient to continue to encourage him to work on his emoti onal issues as well as all his physical problems. The patient was receptive to this. Dictated By: ADELFO CARVER PHD ROBERT/PAPA Conf#: [id number] DID#: [id number] CC: JESUS CHAMBERS MD;*End*
[2018-10-04] MEDS: LEVALBUTEROL (NEB) 0.63 MG/3 ML AMP HHN SCH ×4 (01:13→20:54)
[2018-10-04 02:00] VITALS: BP 112/67; PULSE 95; RESP 18
[2018-10-04] MEDS: ACCU-CHEK XX SCH (02:00)
[2018-10-04] MEDS: LANSOPRAZOLE 30 MG CAP PO SCH (06:27)
[2018-10-04] MEDS: LEVOTHYROXINE 137 MCG TAB PO SCH (06:27)
[2018-10-04 07:00] VITALS: BP 105/71; PULSE 89; RESP 18
[2018-10-04] MEDS: INSULIN ASPART [NOVOLOG] 3 ML PEN SC SCH ×4 (07:35→20:46)
[2018-10-04] MEDS: TAMSULOSIN (SR) 0.4 MG CAP PO SCH (08:01)
[2018-10-04] MEDS: TOBRAMYCIN/DEXAMETH 2.5 ML OPH BOTH EYES SCH ×4 (08:02→20:57)
--- NOTE | 2018-10-04 08:54 | CONS ---
Consult Date/Type/Reason Admit Date/Time Sep 19, 2018 at 13:50 Initial Consult Date 09/21/18 Type of Consultation: cv Requesting Provider: FARAZ GONGORA DO Date/Time of Note DATE: 10/04/18 TIME: 08:54 Subjective Cardiology follow-up progress Subjective: Discussed with the staff. Patient with no chest pain or pressure. He continues to cooperate with physical therapy. Breathing appears to be stable Objective: General: Elderly gentleman in no acute distress HEENT: NC/AT. pupils are equal. round. NECK: Status with previous trach which is closed. no stridor. CV: Irregularly regular. systolic murmur; no gallop or rubs. PULM: no wheezing or rhonchi. GI: SOFT, NT, ND, no rebound or guarding . Extremity: trace B/L LE edema. no clubbing. neuro: awake and alert, Psych: calm and pleasant rectal: deferred : normal 3189August 2018 which was personally reviewed shows: Normal left ventricular cavity size. Moderate concentric left ventricular hypertrophy. Severe global left ventricular systolic dysfunction. Ejection fraction is visually estimated at 35-40 %. Tissue Doppler/Mitral Doppler indices are indeterminate in this study due to the presence of . Mitral valve leaflets appear mildly thickened. Mild mitral annular calcification. Mild mitral valve regurgitation. No significant aortic stenosis or insufficiency. Aortic cusps appear mildly calcified. Normal appearance of the tricuspid valve. Estimated peak PA systolic pressure 30 mmHg. There is trace tricuspid regurgitation. There is mild enlargement of left atrium. Trivial pericardial effusion. Objective Vitals Vital Signs Date Temp Pulse Resp B/P (MAP) Pulse Ox O2 O2 Flow FiO2 Time Delivery Rate 10/04/18 98.2 89 18 105/71 97 Room Air 07:00 (82) 10/04/18 21 01:14 Intake and Output 10/03/18 10/03/18 10/04/18 1515:00 23:00 07:00 IntakeIntake Total 150 ml 870 ml 240 ml OutputOutput Total 460 ml 100 ml BalanceBalance 150 ml 410 ml 140 ml Results/Medications Result Diagram: 10/04/18 0635 10/04/18 0635 Results 24 hrs Laboratory Tests Test 10/03/18 12:05 10/03/18 17:37 10/03/18 21:00 10/04/18 06:35 Bedside Glucose 173 212 131 White Blood Count 6.3 Red Blood Count 3.58 L Hemoglobin 10.3 L Hematocrit 33.3 L Mean Corpuscular 93.0 Volume Mean Corpuscular 28.8 L Hemoglobin Mean Corpuscular 30.9 L Hemoglobin Concent Red Cell 17.1 H Distribution Width Platelet Count 176 Mean Platelet Volume 11.4 H Immature 2.900 H Granulocytes % Neutrophils % 53.3 Lymphocytes % 25.9 Monocytes % 15.6 H Eosinophils % 1.7 Basophils % 0.6 Nucleated Red Blood 0.0 Cells % Immature 0.180 H Granulocytes # Neutrophils # 3.4 Lymphocytes # 1.6 Monocytes # 1.0 H Eosinophils # 0.1 Basophils # 0.0 Nucleated Red Blood 0.0 Cells # Sodium Level 143 Potassium Level 4.3 Chloride Level 109 Carbon Dioxide Level 26 Anion Gap 8 Blood Urea Nitrogen 64 H Creatinine 1.35 H Est Glomerular Filtrat Rate mL/min Glucose Level 86 Calcium Level 9.7 Total Bilirubin 0.1 L Direct Bilirubin 0.00 Indirect Bilirubin 0.1 Aspartate Amino 39 Transf (AST/SGOT) Alanine 37 Aminotransferase (AL T/SGPT) Alkaline Phosphatase 81 Total Protein 7.1 Albumin 3.4 Globulin 3.70 H Albumin/Globulin 0.91 Ratio Test 10/04/18 08:03 Bedside Glucose 112 Home Meds Active Scripts Front Wheel Walker* (Front Wheel Walker*) 1 Each Dme, 1 EACH MC DIRECTED, #1 DME 0 Refills Prov:TC ZAMORA DO 05/28/17 Sodium Polystyrene Sulfonate* (Kayexalate*) 15 Gm/60 Ml Susp, 30 GM PO each day for 2 Days, ML Prov:TC ZAMORA DO 05/28/17 Medications Current Medications Senna (Senokot) 1 tab HS PO Last administered on 10/02/18at 21:06; Admin Dose 1 TAB; Start 09/19/18 at 21:00 Magnesium Hydroxide (Milk Of Mag) 30 ml BID PRN PO CONSTIPATION; Start 09/19/18 at 14:30 Lactulose (Enulose) 20 gm DAILY PRN PO CONSTIPATION; Start 09/19/18 at 14:30 Miscellaneous Information [facility] This patient jean-baptiste. .. PRN PRN XX WOUND CARE; Start 09/19/18 at 14:30 Diphenhydramine HCl (Benadryl) 12.5 mg Q4H PRN IV ITCHING; Start 09/19/18 at 14:30 Febuxostat (Uloric) 40 mg DAILY PO Last administered on 10/03/18 09:23; Admin Dose 40 MG; Start 09/20/18 at 09:00 Heparin Sodium (Porcine) (Heparin (5000 Units/1ml)) 5,000 unit BID SC Last administered on 10/03/18 21:06; Admin Dose 5,000 UNIT; Start 09/19/18 at 21:00 Levalbuterol (Xopenex Neb) 0.63 mg Q6H RESP THERAPY HHN Last administered on 10/04/18 01:13; Admin Dose 0.63 MG; Start 09/19/18 at 20:00 Miconazole Nitrate (Miconazole 2% Cr) 1 applic BID TOP Last administered on 10/03/18 21:07; Admin Dose 1 APPLIC; Start 09/19/18 at 21:00 Nalbuphine HCl (Nubain) 2 mg Q6 PRN IV PRURITUS; Start 09/19/18 at 14:30 Phenol (Chloraseptic Throat [place]) 2 spray Q3 PRN MT SORE THROAT; Start 09/19/18 at 14:30 Tamsulosin HCl (Flomax) 0.4 mg PC BREAKFAST PO Last administered on 10/04/18 08:01; Admin Dose 0.4 MG; Start 09/20/18 at 08:35 Tobramycin/ Dexamethasone (Tobradex Oph Drop) 1 drop QID BOTH EYES Last administered on 10/04/18 08:02; Admin Dose 1 DROP; Start 09/19/18 at 17:00 Diagnostic Test (Pha) (Accu-Chek) 1 ea 02 XX Last administered on 10/02/18 02:42; Admin Dose 1 EA; Start 09/20/18 at 02:00 Insulin Aspart (Novolog Insulin Pen) NOVOLOG *MILD* ALGORITHM WITH MEALS BEDTIME SC Last administered on 10/03/18 17:39; Admin Dose 2 UNIT; Start 09/19/18 at 17:35 Miscellaneous Information 1 ea NOTE XX ; Start 09/19/18 at 16:30 Glucose (Glutose) 15 gm Q15M PRN PO DECREASED GLUCOSE; Start 09/19/18 at 16:30 Glucose (Glutose) 22.5 gm Q15M PRN PO DECREASED GLUCOSE; Start 09/19/18 at 16:30 Dextrose (D50w Syringe) 25 ml Q15M PRN IV DECREASED GLUCOSE; Start 09/19/18 at 16:30 Dextrose (D50w Syringe) 50 ml Q15M PRN IV DECREASED GLUCOSE; Start 09/19/18 at 16:30 Glucagon (Glucagen) 1 mg Q15M PRN IM DECREASED GLUCOSE; Start 09/19/18 at 16:30 Glucose (Glutose) 15 gm Q15M PRN BUCCAL DECREASED GLUCOSE; Start 09/19/18 at 16:30 Bisacodyl (Dulcolax Supp) 10 mg DAILY PRN [place] CONSTIPATION; Start 09/20/18 at 01:00 Acetaminophen (Tylenol Liquid) 650 mg Q4H PRN PO MILD PAIN(1-3)OR ELEVATED TEMP Last administered on 09/25/18 20:06; Admin Dose 650 MG; Start 09/20/18 at 18:30 Cholecalciferol (Vitamin D) 1,000 unit DAILY PO Last administered on 10/03/18 09:23; Admin Dose 1,000 UNIT; Start 09/21/18 at 09:00 Diphenhydramine HCl (Benadryl Liquid Cup) 25 mg Q4H PRN PO ITCHING Last administered on 10/01/18 01:41; Admin Dose 25 MG; Start 09/20/18 at 18:30 Folic Acid (Folic Acid) 1 mg DAILY PO Last administered on 10/03/18 09:23; Admin Dose 1 MG; Start 09/21/18 at 09:00 Glycopyrrolate (Robinul) 1 mg BID PO Last administered on 10/03/18 21:05; Admin Dose 1 MG; Start 09/20/18 at 21:00 Lansoprazole (Prevacid) 30 mg DAILY@06 PO Last administered on 10/04/18 06:27; Admin Dose 30 MG; Start 09/21/18 at 06:00 Levothyroxine Sodium (Synthroid) 137 mcg DAILY@06 PO Last administered on 10/04/18 06:27; Admin Dose 137 MCG; Start 09/21/18 at 06:00 Multivit/Ca Carb/ B Cmplx/FA/Prenat (Daphnie-Nikole) 1 tab DAILY PO Last administered on 10/03/18 09:23; Admin Dose 1 TAB; Start 09/21/18 at 09:00 Prochlorperazine (Compazine) 5 mg Q6H PRN PO NAUSEA AND/OR VOMITING; Start 09/20/18 at 18:30 Propranolol HCl (Inderal) 20 mg TID PO Last administered on 10/03/18 21:12; Admin Dose 20 MG; Start 09/20/18 at 21:00 Fluconazole (Diflucan) 100 mg DAILY PO Last administered on 10/03/18 09:22; Admin Dose 100 MG; Start 09/21/18 at 13:00 Insulin Glargine (Lantus) 16 units DAILY@2000 SC Last administered on 10/03/18 21:03; Admin Dose 16 UNITS; Start 09/27/18 at 20:00 Eye Lubricant (Refresh Plus) 1 drop QID PRN BOTH EYES DRY EYES Last administered on 09/29/18 09:19; Admin Dose 1 DROP; Start 09/28/18 at 12:00 Docusate Sodium (Colace) 100 mg BID PO ; Start 10/03/18 at 21:00 Assessment/Plan Hospital Course (Demo Recall) 1. Atrial fibrillation: Heart rate controlled. Unable to fully anticoagulated due to concern about the anemia and OB positive stool 2. Congestive heart failure/cardiomyopathy: Chronic secondary systolic heart failure and stable now 3. Status post hypoxemic respiratory failure and tracheostomy: Currently trach is capped 4. Anemia and OB positive stool 5. Debility 6. This was empyema/pneumonia 7. dysphasia status post PEG placement 8. Renal insufficiency Recommendation: Continue with the propranolol for heart rate and blood pressure control Respiratory care as needed. Nutritional support to be continued Currently patient off of anticoagulation due to concern about the severe anemia and GI bleeding cont With physical therapy and rehab Renal management as per Dr. Gongora and associate Thank you for his referral. We will continue to follow along with MARCO A NAJERA MD [facility] MARCO A NAJERA MD Oct 04, 2018 08:54
--- NOTE | 2018-10-04 09:04 | PN ---
DATE: 10/04/2018 SUBJECTIVE: The patient is stable, no events overnight. No fevers, chills, nausea, vomiting. OBJECTIVE: VITAL SIGNS: Blood pressure is 112/67, respiration 18, pulse 95, temperature 97.8. HEENT: Head is normocephalic. NECK: Supple. HEART: Regular rate. LUNGS: Show diminished breath sounds at the base. ABDOMEN: Soft, nontender to palpation without rebound or guarding. EXTREMITIES: Negative for clubbing, cyanosis, no edema. DERMATOLOGIC: No rashes. MUSCULOSKELETAL: No joint effusion. NEUROLOGIC: No change in exam. MEDICATIONS: The patient's medications have been reviewed. LABORATORY DATA: Has been reviewed. ASSESSMENT AND PLAN: 1. Chronic respiratory failure. The patient is status post decannulation, currently stable. Will c ontinue to monitor. 2. Dysphagia, status post PEG removal. The patient is tolerating p.o., continue to monitor. 3. Chronic kidney disease. Renal function stable. Continue medical management. 4. Anemia. Monitor hemoglobin and hematocrit levels. Will give Epogen as needed. 5. Mineral bone disorder, monitor calcium and phosphorus levels. 6. Atrial fibrillation, currently in sinus rhythm. Continue current treatment plan. 7. Hypothyroidism. Continue Synthroid. 8. Benign prostatic hypertrophy. Continue Uloric. 9. Constipation. Continue current bowel regimen. 10. Hypertension. Continue current blood pressure regimen. 11. Diabetes. Continue current insulin regimen. Dictated By: FARAZ GONGORA DO NR/NTS Conf#: [id number] DID#: [id number] CC: CHARLENE LYMAN DO; JESUS CHAMBERS MD; CAROLINA BENAVIDES MD;*End*
[2018-10-04] MEDS: CHOLECALCIFEROL 1,000 UNIT TAB PO SCH (09:22)
[2018-10-04] MEDS: FEBUXOSTAT 40 MG TABLET PO SCH (09:22)
[2018-10-04] MEDS: MULTIVIT/CA CARB/B CMPLX/FA TAB PO SCH (09:22)
[2018-10-04] MEDS: DOCUSATE SODIUM 100 MG CAP PO SCH ×2 (09:22→20:45)
[2018-10-04] MEDS: GLYCOPYRROLATE 1 MG TAB PO SCH ×2 (09:22→20:44)
[2018-10-04] MEDS: FLUCONAZOLE 100 MG TAB PO SCH (09:22)
[2018-10-04] MEDS: FOLIC ACID 1 MG TAB PO SCH (09:22)
[2018-10-04] MEDS: PROPRANOLOL 20 MG TAB PO SCH ×3 (09:23→20:45)
[2018-10-04] MEDS: MICONAZOLE 2% 30 GM CR TOP SCH ×2 (09:23→21:00)
[2018-10-04] MEDS: HEPARIN 5,000 UNIT/1 ML VIAL SC SCH ×2 (09:29→20:53)
--- NOTE | 2018-10-04 11:03 | PN ---
Date/Time of Note Date/Time of Note DATE: 10/04/18 TIME: 11:02 Subjective Supportive family Objective Vital Signs Date Temp Pulse Resp B/P (MAP) Pulse Ox O2 O2 Flow FiO2 Time Delivery Rate 10/04/18 86 16 94 21 09:24 10/04/18 98.2 105/71 Room Air 07:00 (82) Intake and Output 10/03/18 10/03/18 10/04/18 1515:00 23:00 07:00 IntakeIntake Total 150 ml 870 ml 240 ml OutputOutput Total 460 ml 100 ml BalanceBalance 150 ml 410 ml 140 ml Exam pulm-cta min 125 feet Results/Medications Result Diagram: 10/04/18 0635 10/04/18 0635 Results 24 hrs Laboratory Tests Test 10/03/18 12:05 10/03/18 17:37 10/03/18 21:00 10/04/18 06:35 Bedside Glucose 173 212 131 White Blood Count 6.3 Red Blood Count 3.58 L Hemoglobin 10.3 L Hematocrit 33.3 L Mean Corpuscular 93.0 Volume Mean Corpuscular 28.8 L Hemoglobin Mean Corpuscular 30.9 L Hemoglobin Concent Red Cell 17.1 H Distribution Width Platelet Count 176 Mean Platelet Volume 11.4 H Immature 2.900 H Granulocytes % Neutrophils % 53.3 Lymphocytes % 25.9 Monocytes % 15.6 H Eosinophils % 1.7 Basophils % 0.6 Nucleated Red Blood 0.0 Cells % Immature 0.180 H Granulocytes # Neutrophils # 3.4 Lymphocytes # 1.6 Monocytes # 1.0 H Eosinophils # 0.1 Basophils # 0.0 Nucleated Red Blood 0.0 Cells # Sodium Level 143 Potassium Level 4.3 Chloride Level 109 Carbon Dioxide Level 26 Anion Gap 8 Blood Urea Nitrogen 64 H Creatinine 1.35 H Est Glomerular Filtrat Rate mL/min Glucose Level 86 Calcium Level 9.7 Total Bilirubin 0.1 L Direct Bilirubin 0.00 Indirect Bilirubin 0.1 Aspartate Amino 39 Transf (AST/SGOT) Alanine 37 Aminotransferase (AL T/SGPT) Alkaline Phosphatase 81 Total Protein 7.1 Albumin 3.4 Globulin 3.70 H Albumin/Globulin 0.91 Ratio Test 10/04/18 08:03 Bedside Glucose 112 Medications Current Medications Senna (Senokot) 1 tab HS PO Last administered on 10/02/18at 21:06; Admin Dose 1 TAB; Start 09/19/18 at 21:00 Magnesium Hydroxide (Milk Of Mag) 30 ml BID PRN PO CONSTIPATION; Start 09/19/18 at 14:30 Lactulose (Enulose) 20 gm DAILY PRN PO CONSTIPATION; Start 09/19/18 at 14:30 [facility]isc[facility] This patient jean-baptiste... PRN PRN XX WOUND CARE; Start 09/19/18 at 14:30 Diphenhydramine HCl (Benadryl) 12.5 mg Q4H PRN IV ITCHING; Start 09/19/18 at 14:30 Febuxostat (Uloric) 40 mg DAILY PO Last administered on 10/04/18 09:22; Admin Dose 40 MG; Start 09/20/18 at 09:00 Heparin Sodium (Porcine) (Heparin (5000 Units/1ml)) 5,000 unit BID SC Last administered on 10/04/18 09:29; Admin Dose 5,000 UNIT; Start 09/19/18 at 21:00 Levalbuterol (Xopenex Neb) 0.63 mg Q6H RESP THERAPY HHN Last administered on 10/04/18 09:24; Admin Dose 0.63 MG; Start 09/19/18 at 20:00 Miconazole Nitrate (Miconazole 2% Cr) 1 applic BID TOP Last administered on 10/04/18 09:23; Admin Dose 1 APPLIC; Start 09/19/18 at 21:00 Nalbuphine HCl (Nubain) 2 mg Q6 PRN IV PRURITUS; Start 09/19/18 at 14:30 Phenol (Chloraseptic Throat Pilger) 2 spray Q3 PRN MT SORE THROAT; Start 09/19/18 at 14:30 Tamsulosin HCl (Flomax) 0.4 mg PC BREAKFAST PO Last administered on 10/04/18 08:01; Admin Dose 0.4 MG; Start 09/20/18 at 08:35 Tobramycin/ Dexamethasone (Tobradex Oph Drop) 1 drop QID BOTH EYES Last administered on 10/04/18 08:02; Admin Dose 1 DROP; Start 09/19/18 at 17:00 Diagnostic Test (Pha) (Accu-Chek) 1 ea 02 XX Last administered on 10/02/18 02:42; Admin Dose 1 EA; Start 09/20/18 at 02:00 Insulin Aspart (Novolog Insulin Pen) NOVOLOG *MILD* ALGORITHM WITH MEALS BEDTIME SC Last administered on 10/03/18at 17:39; Admin Dose 2 UNIT; Start 09/19/18 at 17:35 Miscellaneous Information 1 ea NOTE XX ; Start 09/19/18 at 16:30 Glucose (Glutose) 15 gm Q15M PRN PO DECREASED GLUCOSE; Start 09/19/18 at 16:30 Glucose (Glutose) 22.5 gm Q15M PRN PO DECREASED GLUCOSE; Start 09/19/18 at 16:30 Dextrose (D50w Syringe) 25 ml Q15M PRN IV DECREASED GLUCOSE; Start 09/19/18 at 16:30 Dextrose (D50w Syringe) 50 ml Q15M PRN IV DECREASED GLUCOSE; Start 09/19/18 at 16:30 Glucagon (Glucagen) 1 mg Q15M PRN IM DECREASED GLUCOSE; Start 09/19/18 at 16:30 Glucose (Glutose) 15 gm Q15M PRN BUCCAL DECREASED GLUCOSE; Start 09/19/18 at 16:30 Bisacodyl (Dulcolax Supp) 10 mg DAILY PRN [place] CONSTIPATION; Start 09/20/18 at 01:00 Acetaminophen (Tylenol Liquid) 650 mg Q4H PRN PO MILD PAIN(1-3)OR ELEVATED TEMP Last administered on 09/25/18at 20:06; Admin Dose 650 MG; Start 09/20/18 at 18:30 Cholecalciferol (Vitamin D) 1,000 unit DAILY PO Last administered on 10/04/18 09:22; Admin Dose 1,000 UNIT; Start 09/21/18 at 09:00 Diphenhydramine HCl (Benadryl Liquid Cup) 25 mg Q4H PRN PO ITCHING Last administered on 10/01/18 01:41; Admin Dose 25 MG; Start 09/20/18 at 18:30 Folic Acid (Folic Acid) 1 mg DAILY PO Last administered on 10/04/18 09:22; Admin Dose 1 MG; Start 09/21/18 at 09:00 Glycopyrrolate (Robinul) 1 mg BID PO Last administered on 10/04/18 09:22; Admin Dose 1 MG; Start 09/20/18 at 21:00 Lansoprazole (Prevacid) 30 mg DAILY@06 PO Last administered on 10/04/18 06:27; Admin Dose 30 MG; Start 09/21/18 at 06:00 Levothyroxine Sodium (Synthroid) 137 mcg DAILY@06 PO Last administered on 10/04/18 06:27; Admin Dose 137 MCG; Start 09/21/18 at 06:00 Multivit/Ca Carb/ B Cmplx/FA/Prenat (Daphnie-Nikole) 1 tab DAILY PO Last administered on 10/04/18 09:22; Admin Dose 1 TAB; Start 09/21/18 at 09:00 Prochlorperazine (Compazine) 5 mg Q6H PRN PO NAUSEA AND/OR VOMITING; Start 09/20/18 at 18:30 Propranolol HCl (Inderal) 20 mg TID PO Last administered on 10/04/18 09:23; Admin Dose 20 MG; Start 09/20/18 at 21:00 Fluconazole (Diflucan) 100 mg DAILY PO Last administered on 10/04/18 09:22; Admin Dose 100 MG; Start 09/21/18 at 13:00 Insulin Glargine (Lantus) 16 units DAILY@2000 SC Last administered on 10/03/18 21:03; Admin Dose 16 UNITS; Start 09/27/18 at 20:00 Eye Lubricant (Refresh Plus) 1 drop QID PRN BOTH EYES DRY EYES Last administered on 09/29/18 09:19; Admin Dose 1 DROP; Start 09/28/18 at 12:00 Docusate Sodium (Colace) 100 mg BID PO Last administered on 10/04/18 09:22; Admin Dose 100 MG; Start 10/03/18 at 21:00 Assessment/Plan Additional Assessment/Plan Rehab- Critical illness myopathy; debility - S/p acute respiratory failure continue rehab treatment plan Pulm- s/p resp failure, right empyema and thoracotomy with decortication, COPD and tracheostomy- s/p decannulation- healed Chronic atrial fibrillation. Chronic kidney disease. Anemia. BPH. Hypertension. Diabetes mellitus. Impairments in hearing. JESUS CHAMBERS MD Oct 04, 2018 11:03
[2018-10-04 14:00] VITALS: BP 115/83; PULSE 115; RESP 18
[2018-10-04 20:37] VITALS: BP 113/72; PULSE 108; RESP 19
[2018-10-04] MEDS: SENNA TAB PO SCH (20:46)
[2018-10-04] MEDS: INSULIN GLARGINE [LANTus] (100 UNITS/ML) SYG SC SCH (20:55)
[2018-10-05] MEDS: LEVALBUTEROL (NEB) 0.63 MG/3 ML AMP HHN SCH ×2 (01:32→09:19)
[2018-10-05] MEDS: ACCU-CHEK XX SCH (02:00)
[2018-10-05] MEDS: LEVOTHYROXINE 137 MCG TAB PO SCH (06:54)
[2018-10-05] MEDS: LANSOPRAZOLE 30 MG CAP PO SCH (06:54)
[2018-10-05 07:00] VITALS: BP 102/72; PULSE 111; RESP 18
[2018-10-05] MEDS: INSULIN ASPART [NOVOLOG] 3 ML PEN SC SCH ×2 (08:40→11:40)
--- NOTE | 2018-10-05 08:47 | PN ---
DATE: 10/05/2018 SUBJECTIVE: The patient is stable, no events overnight. No fevers, chills, nausea, vomiting. OBJECTIVE: VITAL SIGNS: Blood pressure is 115/83, pulse 120, respiration 19, temperature 98.3. HEENT: Head is normocephalic. NECK: Supple. HEART: Regular rate. LUNGS: Show diminished breath sounds at the base. ABDOMEN: Soft, nontender to palpation without rebound or guarding. EXTREMITIES: Negative for clubbing, cyanosis, no edema. DERMATOLOGIC: No rashes. MUSCULOSKELETAL: No joint effusions. NEUROLOGIC: No change in exam. MEDICATIONS: The patient's medications have been reviewed. LABORATORY DATA: From 10/04 was reviewed. ASSESSMENT AND PLAN: 1. Chronic respiratory failure. The patient is status post decannulation, currently stable. Contin ue to monitor. 2. Dysphagia. The patient is status post PEG removal. Currently tolerating p.o. as well. 3. Chronic kidney disease. Renal function stable. Continue current medical management. 4. Anemia. Monitor hemoglobin and hematocrit levels. Continue Epogen as needed. 5. Mineral bone disorder, monitor calcium and phosphorus levels. 6. Atrial fibrillation, currently in sinus rhythm. Continue current treatment plan. 7. Hypothyroidism. Continue Synthroid. 8. Benign prostatic hypertrophy. Continue Uloric. 9. Constipation. Continue current bowel regimen. 10. Hypertension. Continue current blood pressure regimen. 11. Diabetes. Continue current insulin regimen. Dictated By: FARAZ GONGORA DO NR/NTS Conf#: [id number] DID#: [id number] CC: CAROLINA BENAVIDES MD; CHARLENE LYMAN DO; JESUS CHAMBERS MD;*EndCC*
[2018-10-05] MEDS: PROPRANOLOL 20 MG TAB PO SCH (09:00)
[2018-10-05] MEDS: TOBRAMYCIN/DEXAMETH 2.5 ML OPH BOTH EYES SCH (09:45)
[2018-10-05] MEDS: FLUCONAZOLE 100 MG TAB PO SCH (09:46)
[2018-10-05] MEDS: GLYCOPYRROLATE 1 MG TAB PO SCH (09:46)
[2018-10-05] MEDS: FEBUXOSTAT 40 MG TABLET PO SCH (09:46)
[2018-10-05] MEDS: CHOLECALCIFEROL 1,000 UNIT TAB PO SCH (09:47)
[2018-10-05] MEDS: FOLIC ACID 1 MG TAB PO SCH (09:47)
[2018-10-05] MEDS: MULTIVIT/CA CARB/B CMPLX/FA TAB PO SCH (09:47)
[2018-10-05] MEDS: TAMSULOSIN (SR) 0.4 MG CAP PO SCH (09:47)
[2018-10-05] MEDS: DOCUSATE SODIUM 100 MG CAP PO SCH (09:47)
[2018-10-05] MEDS: MICONAZOLE 2% 30 GM CR TOP SCH (09:51)
[2018-10-05] MEDS: HEPARIN 5,000 UNIT/1 ML VIAL SC SCH (09:51)
--- NOTE | 2018-10-05 11:49 | DS ---
Date/Time of Note Date/Time of Note DATE: 10/05/18 TIME: 11:48 Discharge Summary Admission/Discharge Info Admit Date/Time Sep 19, 2018 at 13:50 Discharge Date/Time Discharge Diagnosis 1. Critical illness myopathy, improved 2. Status post acute respiratory failure, right empyema and thoracotomy with decortication, COPD and tracheostomy, patient decannulated successfully 2. Chronic atrial fibrillation. 3. Chronic kidney disease. 4. Anemia. 5. BPH. 6. Hypertension. 7. Diabetes mellitus. 8. Impairments in hearing. 9. Improvements in self-care, mobility and mild cognition. Patient Condition: Good Hospital Course The patient was admitted for comprehensive interdisciplinary rehabilitation and made steady functional gains from a Mod/Max level to a SBA level for self care tasks and mobility including ambulating over 150 feet with the use of a FWW. Aurora jorge was successfully decannulated during the course of his stay. Patient is being discharged home with the recommendation of home health PT, OT and RN follow up. The DC meds are per the medication reconciliation sheet. The discharge equipment recommendations include: FWW, BSC, shower chair. The patient will follow up with PMD upon DC. Home Meds Active Scripts Front Wheel Walker* (Front Wheel Walker*) 1 Each Dme, 1 EACH [facility] DIRECTED, #1 DME 0 Refills Prov:TC ZAMORA DO 05/28/17 Sodium Polystyrene Sulfonate* (Kayexalate*) 15 Gm/60 Ml Susp, 30 GM PO each day for 2 Days, ML Prov:TC ZAMORA DO 05/28/17 Primary Care Provider Amado Douglas DO Pending Labs Laboratory Tests Test 10/04/18 11:49 10/04/18 17:30 10/04/18 20:43 10/05/18 08:39 Bedside 131 133 170 118 Glucose mg/dL (70-220) mg/dL (70-220) mg/dL (70-220) mg/dL (70-220) JESUS CHAMBERS MD Oct 05, 2018 11:49
== END 2018-10-05 12:30 | disposition home or self-care (01) | DRG 92 ==
LOC: VRC 13:50 → LAB 14:07 → EDSTATUS 14:10
PROVIDERS: ADMIT Physical Medicine & Rehabilitation; ATTEND Internal Medicine Nephrology
PROC: F07Z5ZZ Bed Mobility Treatment (ICD-10-PCS; principal; 2018-09-19)
PROC: F08Z2ZZ Grooming/Personal Hygiene Treatment (ICD-10-PCS; 2018-09-19)
DX: G72.81 Critical illness myopathy (principal); I50.22 Chronic systolic (congestive) heart failure; J96.10 Chronic respiratory failure, unspecified whether with hypoxia or hypercapnia; I13.0 Hypertensive heart and chronic kidney disease with heart failure and stage 1 through stage 4 chronic kidney disease, or unspecified chronic kidney disease; I48.91 Unspecified atrial fibrillation; N40.0 Benign prostatic hyperplasia without lower urinary tract symptoms; E03.9 Hypothyroidism, unspecified; N18.9 Chronic kidney disease, unspecified; D64.9 Anemia, unspecified; E11.22 Type 2 diabetes mellitus with diabetic chronic kidney disease; E87.5 Hyperkalemia; E83.9 Disorder of mineral metabolism, unspecified; R13.10 Dysphagia, unspecified; K59.00 Constipation, unspecified; H91.90 Unspecified hearing loss, unspecified ear; J44.9 Chronic obstructive pulmonary disease, unspecified; R53.81 Other malaise; F06.31 Mood disorder due to known physiological condition with depressive features; F06.8 Other specified mental disorders due to known physiological condition
CPT/HCPCS: 80048; 80053; 81001; 82962; 83735; 84100; 85025; 87081; 87086; 92526; 92610; 94640; 94664; 97110; 97112; 97116; 97163; 97166; 97530; 97535; 97542; J1644; J1815; J7512